=== PATIENT | male | born 1955 | race American Indian/Alaskan Native ===

== ENCOUNTER 2018-12-04 20:39 | Inpatient (IN) | payer BC, OTHER ==
[2018-12-04] MEDS ORDERED: Sodium Chloride 0.9% 2.5 ML Syringe FLUSH PRN (20:55)
[2018-12-04] MEDS ORDERED: Sodium Chloride 0.9% 10 ML Syringe FLUSH PRN (20:55)
[2018-12-04] MEDS ORDERED: Ondansetron 4 MG/2 ML SDV IVPUSH ONE (20:57)
[2018-12-04] MEDS ORDERED: HYDROmorphone 1 MG/ML Syringe IVPUSH ONE ×2 (20:57→23:14)
[2018-12-04] MEDS ORDERED: Sodium Chloride 0.9% 1,000 ML IV ONE (20:57)
--- NOTE | 2018-12-04 20:59 | EDM.PDOC ---
ED HPI GENERAL MEDICAL PROBLEM - General Chief Complaint: Chest Pain Stated Complaint: CHEST PAIN Time Seen by Provider: 12/04/18 20:54 - History of Present Illness INITIAL COMMENTS - FREE TEXT/NARRATIVE: HISTORY AND PHYSICAL: History of present illness: Patient is a 63-year-old white male with history of deep venous thrombosis is currently on Coumadin presents with a concern of intermittent epigastric and right upper quadrant abdominal pain it became worse tonight this more localized in his right upper quadrant on arrival. There is no shortness of breath palpitations or diaphoresis he denies other concern. Review of systems: As per history of present illness and below otherwise all systems reviewed and negative. Past medical history: As per history of present illness and as reviewed below otherwise noncontributory. Surgical history: As per history of present illness and as reviewed below otherwise noncontributory. Social history: No reported history of drug or alcohol abuse. Family history: As per history of present illness and as reviewed below otherwise noncontributory. Physical exam: HEENT: Atraumatic, normocephalic, pupils reactive, negative for conjunctival pallor or scleral icterus, mucous membranes moist, throat clear, neck supple, nontender, trachea midline. Lungs: Clear to auscultation, breath sounds equal bilaterally, chest nontender. Heart: S1S2, regular, negative for clicks, rubs, or JVD. Abdomen: Soft, nondistended, tenderness with guarding in the right upper quadrant deep palpation. Negative for masses or hepatosplenomegaly. Negative for costovertebral tenderness. Pelvis: Stable nontender. Genitourinary: Deferred. Rectal: Deferred. Extremities: Atraumatic, negative for cords or calf pain. Neurovascular unremarkable. Neuro: Awake, alert, oriented. Cranial nerves II through XII unremarkable. Cerebellum unremarkable. Motor and sensory unremarkable throughout. Exam nonfocal. Diagnostics: CBC CMP troponin PT/INR chest x-ray EKG ultrasound right upper quadrant Therapeutics: IV O2 monitor Dilaudid 1 mg IV Zofran 4 mg IV Impression: #1 right upper quadrant abdominal pain #2 history of DVT Definitive disposition and diagnosis as appropriate pending reevaluation and review of above. chest Pain Score (Numeric/FACES): 7 - Related Data Allergies Allergy/AdvReac Type Severity Reaction Status Date / Time propoxyphene [From Darvon] Allergy Nausea Verified 12/04/18 20:49 Home Meds: Home Meds Htn Medication 12/04/18 [History] Warfarin [Coumadin] 12/04/18 [History] Past Medical History Cardiovascular History: Reports: Hypertension Other Cardiovascular History: Arterial procedure in Left leg per PT Other Musculoskeletal History: left leg arterial procedure per PT Social & Family History - Family History Family Medical History: Noncontributory - Tobacco Use Smoking Status *Q: Former Smoker Used Tobacco, but Quit: Yes Month/Year Tobacco Last Used: 03/2016 - Recreational Drug Use Recreational Drug Use: No ED ROS GENERAL - Review of Systems Review Of Systems: ROS reveals no pertinent complaints other than HPI. ED EXAM, GENERAL - Physical Exam Exam: See Below (See dictation) Course - Vital Signs Last Recorded V/S: Last Vital Signs Temp 37.1 C 12/04/18 20:50 Pulse 62 12/05/18 00:41 Resp 16 12/05/18 00:41 BP 126/58 L 12/05/18 00:41 Pulse Ox 92 L 12/05/18 00:41 - Orders/Labs/Meds Orders: Active Orders 24 hr Category Date Time Status Cardiac Monitoring [RC] . DIRECTED Care 12/04/18 20:58 Active Sodium Chloride 0.9% [Saline Flush] Med 12/04/18 20:55 Active 10 ml FLUSH ASDIRECTED PRN Sodium Chloride 0.9% [Saline Flush] Med 12/04/18 20:55 Active 2.5 ml FLUSH ASDIRECTED PRN Saline Lock Insert [OM.PC] Stat Oth 12/04/18 20:55 Ordered Medication Orders Sodium Chloride (Saline Flush) 10 ml FLUSH ASDIRECTED PRN PRN Reason: Keep Vein Open Last Admin: 12/04/18 21:18 Dose: 10 ml Sodium Chloride (Saline Flush) 2.5 ml FLUSH ASDIRECTED PRN PRN Reason: Keep Vein Open Last Admin: 12/04/18 21:18 Dose: 2.5 ml Labs: Laboratory Tests 12/04/18 12/04/18 12/04/18 Range/Units 20:50 20:50 20:50 WBC 8.09 (4.0-11.0) K/uL RBC 4.71 (4.50-5.90) M/uL Hgb 13.8 (13.0-17.0) g/dL Hct 42.1 (38.0-50.0) % MCV 89.4 (80.0-98.0) fL MCH 29.3 (27.0-32.0) pg MCHC 32.8 (31.0-37.0) g/dL RDW Std Deviation 49.6 (28.0-62.0) fl RDW Coeff of Marilee 15 (11.0-15.0) % Plt Count 289 (150-400) K/uL MPV 9.90 (7.40-12.00) fL Neut % (Auto) 77.1 (48.0-80.0) % Lymph % (Auto) 10.1 L (16.0-40.0) % [place] % (Auto) 9.1 (0.0-15.0) % Eos % (Auto) 3.5 (0.0-7.0) % Baso % (Auto) 0.2 (0.0-1.5) % Neut # (Auto) 6.2 H (1.4-5.7) K/uL Lymph # (Auto) 0.8 (0.6-2.4) K/uL [place] # (Auto) 0.7 (0.0-0.8) K/uL Eos # (Auto) 0.3 (0.0-0.7) K/uL Baso # (Auto) 0.0 (0.0-0.1) K/uL Nucleated RBC % 0.0 /100WBC Nucleated RBCs # 0 K/uL INR 6.08 Sodium 141 (136-148) mmol/L Potassium 4.0 (3.5-5.1) mmol/L Chloride 104 (98-107) mmol/L Carbon Dioxide 25.3 (21.0-32.0) mmol/L BUN 26 H (7.0-18.0) mg/dL Creatinine 1.5 H (0.8-1.3) mg/dL Est Cr Clr Drug Dosing 56.04 mL/min Estimated GFR (MDRD) 47.4 ml/min Glucose 221 H (74-106) mg/dL Calcium 8.7 (8.5-10.1) mg/dL Total Bilirubin 0.3 (0.2-1.0) mg/dL AST 14 L (15-37) IU/L ALT 17 (14-63) IU/L Alkaline Phosphatase 76 (46-116) U/L CK-MB (CK-2) 0.7 (0-3.6) ng/mL Troponin I < 0.050 (0.000-0.056) ng/mL Total Protein 7.6 (6.4-8.2) g/dL Albumin 3.3 L (3.4-5.0) g/dL Globulin 4.3 H (2.6-4.0) g/dL Albumin/Globulin Ratio 0.8 L (0.9-1.6) Lipase (73-393) U/L Urine Color Urine Appearance Urine pH (5.0-8.0) Ur Specific [place] (1.001-1.035) Urine Protein (NEGATIVE) mg/dL Urine Glucose (UA) (NEGATIVE) mg/dL Urine Ketones (NEGATIVE) mg/dL Urine Occult Blood (NEGATIVE) Urine Nitrite (NEGATIVE) Urine Bilirubin (NEGATIVE) Urine Urobilinogen (<2.0) EU/dL Ur Leukocyte Esterase (NEGATIVE) Urine RBC (0-2/HPF) Urine WBC (0-5/HPF) Ur Epithelial Cells (NONE-FEW) Urine Bacteria (NEGATIVE) 12/04/18 12/04/18 Range/Units 20:50 20:56 WBC (4.0-11.0) K/uL RBC (4.50-5.90) M/uL Hgb (13.0-17.0) g/dL Hct (38.0-50.0) % MCV (80.0-98.0) fL MCH (27.0-32.0) pg MCHC (31.0-37.0) g/dL RDW Std Deviation (28.0-62.0) fl RDW Coeff of [place] (11.0-15.0) % Plt Count (150-400) K/uL MPV (7.40-12.00) fL Neut % (Auto) (48.0-80.0) % Lymph % (Auto) (16.0-40.0) % [place] % (Auto) (0.0-15.0) % Eos % (Auto) (0.0-7.0) % Baso % (Auto) (0.0-1.5) % Neut # (Auto) (1.4-5.7) K/uL Lymph # (Auto) (0.6-2.4) K/uL [place] # (Auto) (0.0-0.8) K/uL Eos # (Auto) (0.0-0.7) K/uL Baso # (Auto) (0.0-0.1) K/uL Nucleated RBC % /100WBC Nucleated RBCs # K/uL INR Sodium (136-148) mmol/L Potassium (3.5-5.1) mmol/L Chloride (98-107) mmol/L Carbon Dioxide (21.0-32.0) mmol/L BUN (7.0-18.0) mg/dL Creatinine (0.8-1.3) mg/dL Est Cr Clr Drug Dosing mL/min Estimated GFR (MDRD) ml/min Glucose (74-106) mg/dL Calcium (8.5-10.1) mg/dL Total Bilirubin (0.2-1.0) mg/dL AST (15-37) IU/L ALT (14-63) IU/L Alkaline Phosphatase (46-116) U/L CK-MB (CK-2) (0-3.6) ng/mL Troponin I (0.000-0.056) ng/mL Total Protein (6.4-8.2) g/dL Albumin (3.4-5.0) g/dL Globulin (2.6-4.0) g/dL Albumin/Globulin Ratio (0.9-1.6) Lipase 258 (73-393) U/L Urine Color YELLOW Urine Appearance CLEAR Urine pH 5.0 (5.0-8.0) Ur Specific [place] 1.025 (1.001-1.035) Urine Protein TRACE H (NEGATIVE) mg/dL Urine Glucose (UA) NEGATIVE (NEGATIVE) mg/dL Urine Ketones NEGATIVE (NEGATIVE) mg/dL Urine Occult Blood LARGE H (NEGATIVE) Urine Nitrite NEGATIVE (NEGATIVE) Urine Bilirubin NEGATIVE (NEGATIVE) Urine Urobilinogen 0.2 (<2.0) EU/dL Ur Leukocyte Esterase NEGATIVE (NEGATIVE) Urine RBC 15-20 (0-2/HPF) Urine WBC 1-3 (0-5/HPF) Ur Epithelial Cells NOT SEEN (NONE-FEW) Urine Bacteria RARE (NEGATIVE) Meds: Medications Generic Name Dose Route Start Last Admin Trade Name Isaccq PRN Reason Stop Dose Admin Sodium Chloride 10 ml 12/04/18 20:55 12/04/18 21:18 Saline Flush FLUSH 10 ml ASDIRECTED PRN Administration Keep Vein Open Sodium Chloride 2.5 ml 12/04/18 20:55 12/04/18 21:18 Saline Flush FLUSH 2.5 ml ASDIRECTED PRN Administration Keep Vein Open Discontinued Medications Generic Name Dose Route Start Last Admin Trade Name Luann PRN Reason Stop Dose Admin Hydromorphone HCl 1 mg 12/04/18 20:57 12/04/18 21:14 Dilaudid IVPUSH 12/04/18 20:58 1 mg ONETIME ONE Administration Hydromorphone HCl 1 mg 12/04/18 23:14 12/04/18 23:20 Dilaudid IVPUSH 12/04/18 23:15 1 mg ONETIME ONE Administration Sodium Chloride 1,000 mls @ 999 mls/hr 12/04/18 20:57 12/04/18 21:10 Normal Saline IV 12/04/18 21:57 999 mls/hr .Bolus ONE Administration Iopamidol 85 ml 12/04/18 23:37 12/04/18 23:38 Isovue Multipack-370 (76%) IVPUSH 12/04/18 23:38 85 ml ONETIME STA Administration Ondansetron HCl 4 mg 12/04/18 20:57 12/04/18 21:12 Zofran IVPUSH 12/04/18 20:58 4 mg ONETIME ONE Administration Departure - Departure Time of Disposition: 00:43 Disposition: Refer to Observation Condition: Good Clinical Impression: Hematoma, Coumadin toxicity - Discharge Information Referrals: PCP,None [Primary Care Provider] - Forms: ED Department Discharge - My Orders Last 24 Hours: My Active Orders 12/04/18 20:55 Sodium Chloride 0.9% [Saline Flush] 10 ml FLUSH ASDIRECTED PRN Sodium Chloride 0.9% [Saline Flush] 2.5 ml FLUSH ASDIRECTED PRN Saline Lock Insert [OM.PC] Stat 12/04/18 20:58 Cardiac Monitoring [RC] . DIRECTED - Assessment/Plan Last 24 Hours: My Active Orders 12/04/18 20:55 Sodium Chloride 0.9% [Saline Flush] 10 ml FLUSH ASDIRECTED PRN Sodium Chloride 0.9% [Saline Flush] 2.5 ml FLUSH ASDIRECTED PRN Saline Lock Insert [OM.PC] Stat 12/04/18 20:58 Cardiac Monitoring [RC] . DIRECTED
--- NOTE | 2018-12-04 21:34 | CR ---
INDICATION: Chest pain. TECHNIQUE: AP portable chest. FINDINGS: Granulomatous changes on the left with a calcified granuloma in the left lower lobe with calcified left hilar lymph nodes. Both lungs are otherwise clear. Normal heart size and pulmonary vascularity. The included skeleton is unremarkable. IMPRESSION: Granulomatous change on the left. No acute cardiopulmonary process identified. Dictated by Flavio Saleem MD @ Dec 04 2018 9:31PM Signed by Dr. Flavio Saleem @ Dec 04 2018 9:32PM
[2018-12-04 21:50] LABS: BLOOD UREA NITROGEN,BUN 26 mg/dL (7.0-18.0); CARBON DIOXIDE,CO2 25.3 mmol/L (21.0-32.0); CHLORIDE,CL 104 mmol/L (98-107); GLUCOSE RANDOM 221 mg/dL (74-106); SODIUM,NA 141 mmol/L (136-148)
--- NOTE | 2018-12-04 23:09 | US ---
INDICATION: Right upper quadrant abdomen pain TECHNIQUE: Ultrasound abdomen limited. Sonographic images of the right upper quadrant were obtained using arroyo-scale and color Doppler images. COMPARISON: None FINDINGS: Liver: Mildly increased in echogenicity without focal lesion. Gallbladder: No stones or sludge. Normal wall thickness. No pericholecystic fluid. Common bile duct: 3 mm. Pancreas: Obscured by bowel gas. Right kidney: Normal in size. Normal echotexture and cortex. No masses, stones, or hydronephrosis. Irregular hypoechoic avascular area within the epigastric region measuring 7.2 x 4.2 x 6.3 centimeters. IMPRESSION: 1. No evidence of cholelithiasis or cholecystitis. 2. Hypoechoic avascular area within the epigastric region measuring up to 7.2 centimeters. This is indeterminate and could represent a thickened area of bowel, thickened stomach or separate lesion. CT scan recommended for further characterization. 3. Mild fatty infiltration of the liver. Dictated by Maximo Wheeler MD @ Dec 04 2018 11:04PM Signed by Dr. Maximo Wheeler @ Dec 04 2018 11:07PM
[2018-12-04] MEDS ORDERED: Iopamidol 755 MG/ML 500 ML Multipack Bottle IVPUSH STA (23:37)
--- NOTE | 2018-12-05 00:20 | CT ---
INDICATION: Abdominal pain, abnormal abdominal ultrasound. TECHNIQUE: CT abdomen and pelvis acquired with 85 cc Isovue 370 IV contrast. COMPARISON: Abdominal ultrasound from earlier today FINDINGS: Lower chest: Calcified granuloma left lower lobe. Calcified left hilar lymph nodes. Liver: Hepatic steatosis. Spleen: Unremarkable. Pancreas: Unremarkable. Gallbladder and bile ducts: Unremarkable. Adrenal glands: Unremarkable. Kidneys: Unremarkable. GI tract: Colonic diverticulosis. Vascular structures: Mild atherosclerotic disease. Patent left common iliac artery stent. Lymph nodes: Unremarkable. Miscellaneous: In the midline extraperitoneal fat at the level of the liver, there is 4.4 by 4.0 x 7.7 cm lobular soft tissue mass that demonstrates a fluid-fluid level. There is mild soft tissue stranding in this region. No active bleeding or pseudoaneurysm. No intraperitoneal abnormality. Small fat containing umbilical hernia. Pelvic Organs: Enlarged prostate gland. Bones: Unremarkable for age. IMPRESSION: Lobular mass in the midline extraperitoneal fat at the level of the liver likely represents a hematoma. No active bleeding identified. Recommend follow-up CT in 3-4 weeks to ensure complete resolution of findings. Colonic diverticulosis. Hepatic steatosis. Patent left common iliac artery stent. Enlarged prostate gland. Please note that all CT scans at this facility use dose modulation, iterative reconstruction, and/or weight-based dosing when appropriate to reduce radiation dose to as low as reasonably achievable. Dictated by Alison Stout MD @ Dec 05 2018 12:05AM Signed by Dr. Alison Stout @ Dec 05 2018 12:18AM
[2018-12-05] MEDS: HYDROmorphone 1 MG/ML Syringe IVPUSH PRN ×3 (02:13→11:45)
[2018-12-05 08:50] LABS: BLOOD UREA NITROGEN,BUN 20 mg/dL (7.0-18.0); CARBON DIOXIDE,CO2 26.5 mmol/L (21.0-32.0); CHLORIDE,CL 107 mmol/L (98-107); GLUCOSE RANDOM 111 mg/dL (74-106); POTASSIUM,K 4.5 mmol/L (3.5-5.1); SODIUM,NA 143 mmol/L (136-148)
--- NOTE | 2018-12-05 09:05 | PCM.HP.2 ---
H&P History of Present Illness - General Date of Service: 12/05/18 Admit Problem/Dx: Admission Diagnosis/Problem Admission Diagnosis/Problem Hematoma Source of Information: Patient History Limitations: Reports: No Limitations - History of Present Illness Initial Comments - Free Text/Narative: This 63 year old male with pmh of PAD with iliac artery stenting and L femoral bypass in 2007, HTN, dyslipidemia, and history of DVT with chronic anticoagulation on Coumadin presented to the ED with complaints of epigastric and RUQ abdominal pain. He reports this started around and it slowly progressed to the point last evening it was unbearable. He denies obvious injury or trauma. No recent physical activity or carrying objects. As he was recalling this, he remembered on Wednesday he had a rental truck and had to lean over the bed of the truck. He leaned over with bottom of ribcage pressured firmaly against the truck and he remembers it hurting. This is the only thing he can recall injurying his abdomen. He denies fevers, chills, sinus congestion or cough. No chest pain or lower abdominal pain. No shortness of breath. No diarrhea or constipation. No black or bloody stools. No urinary troubles and no blood noted in his urine. He reports diet hasn't changed. He recently added B complex vitamin to his medication regimen. He is a former smoker, occasional social alcohol use and no recreational drug use. He has no history of AR or CVA. He reports he takes 10 mg Coumadin daily, and that is how its been for years now. In in the ED, CBC stable. Hgb 13.6. BUN 25, Cr 1.5. INR 6.08. CXR negative. US of abdomen showed questionable soft tissue mass, recommended CT. CT of abdomen revealed lobular mass in the midline extraperitoneal fat at the level of the liver, likely hematoma, no active bleeding identified, recommended F/U 3-[address] Patent left iliac artery stent. He was given IVFs in ED with pain medications and admitted observation for pain secondary to abdominal soft tissue hematoma. PCP, Dr Dorado Right Upper Abdominal Pain Score (Numeric/FACES): 7 chest Pain Score (Numeric/FACES): 7 - Related Data Allergies/Adverse Reactions: Allergies Allergy/AdvReac Type Severity Reaction Status Date / Time propoxyphene [From Darvon] Allergy Nausea Verified 12/05/18 01:39 Home Medications: Home Meds Warfarin [Coumadin] 10 mg PO ASDIRECTED 12/04/18 [History] Doxazosin [Doxazosin Mesylate] 8 mg PO BEDTIME 12/05/18 [History] Finasteride 5 mg PO DAILY 12/05/18 [History] Lansoprazole [Prevacid] 30 mg PO DAILY 12/05/18 [History] Rosuvastatin Calcium 5 mg PO DAILY 12/05/18 [History] amLODIPine Besylate [Amlodipine Besylate] 10 mg PO DAILY 12/05/18 [History] Past Medical History Cardiovascular History: Reports: Blood Clots/VTE/DVT, High Cholesterol, Hypertension, PVD (femoral bypass in 2007, with L common iliac arterty stenting. ), Stents Respiratory History: Reports: None. Denies: Asthma, COPD Gastrointestinal History: Reports: None. Denies: GERD, GI Bleed Genitourinary History: Reports: None. Denies: Chronic Renal Insuffiency Other Musculoskeletal History: left leg arterial procedure per PT Neurological History: Reports: None. Denies: CVA, TIA Psychiatric History: Reports: None Endocrine/Metabolic History: Reports: Obesity/BMI 30+. Denies: Diabetes, Type II - Infectious Disease History Infectious Disease History: Reports: Chicken Pox, Measles, Mumps - Past Surgical History Cardiovascular Surgical History: Reports: Vascular Surgery (femoral bypass with left common iliac arterty stenting to) Social & Family History - Family History Family Medical History: Noncontributory - Tobacco Use Smoking Status *Q: Never Smoker Used Tobacco, but Quit: Yes Month/Year Tobacco Last Used: 03/2016 - Caffeine Use Caffeine Use: Reports: Coffee, Soda - Alcohol Use Alcohol Use History: No Alcohol Use Frequency: Socially - Recreational Drug Use Recreational Drug Use: No - Living Situation & Occupation Living situation: Reports: Occupation: Employed H&P Review of Systems - Review of Systems: Review Of Systems: See Below General: Reports: No Symptoms. Denies: Fever, Chills, Malaise HEENT: Reports: No Symptoms. Denies: Headaches, Sinus Congestion, Sore Throat Pulmonary: Reports: No Symptoms. Denies: Shortness of Breath Cardiovascular: Reports: No Symptoms. Denies: Chest Pain Gastrointestinal: Reports: Abdominal Pain (Epigastric and RUQ). Denies: Black Stool, Bloody Stool, Constipation, Diarrhea, Distension, Nausea, Vomiting Genitourinary: Reports: No Symptoms. Denies: Dysuria, Frequency, Burning, Hematuria Musculoskeletal: Reports: No Symptoms. Denies: Neck Pain Skin: Reports: No Symptoms Psychiatric: Reports: No Symptoms Neurological: Reports: No Symptoms. Denies: Headache, Numbness, Paresthesia, Trouble Speaking Hematologic/Lymphatic: Reports: Easy Bruising Immunologic: Reports: No Symptoms Exam - Exam Exam: See Below - Vital Signs Vital Signs: Last Vital Signs Temp 98 F 12/05/18 07:41 Pulse 70 12/05/18 07:41 Resp 16 12/05/18 07:41 BP 122/63 12/05/18 07:41 Pulse Ox 93 L 12/05/18 07:41 Weight: 102.058 kg - Exam General: Alert, Oriented, Cooperative HEENT: Conjunctiva Clear, Mucosa Moist & [place], Posterior Pharynx Clear Lungs: Clear to Auscultation, Normal Respiratory Effort Cardiovascular: Regular Rate, Regular Rhythm, Normal S1, Normal S2. No: Systolic Murmur GI/Abdominal Exam: Normal Bowel Sounds, Soft, Tender (very tender with small palpation to Epigastric region and RUQ, but more towards epigastric.) Back Exam: Normal Inspection, Full Range of Motion. No: CVA Tenderness (L), CVA Tenderness (R) Extremities: Normal Inspection, Normal Range of Motion, Non-Tender, No Pedal Edema Skin: Warm, Dry, Ecchymosis (small scant bruise noted to epigastric region) Neuro Extensive - Mental Status: Alert, Oriented x3 Neuro Extensive - Motor, Sensory, Reflexes: CN II-XII Intact Psychiatric: Alert, Normal Affect, Normal Mood - Patient Data Lab Results Last 24 hrs: Laboratory Results - last 24 hr 12/04/18 12/04/18 12/04/18 Range/Units 20:50 20:50 20:50 WBC 8.09 (4.0-11.0) K/uL RBC 4.71 (4.50-5.90) M/uL Hgb 13.8 (13.0-17.0) g/dL Hct 42.1 (38.0-50.0) % MCV 89.4 (80.0-98.0) fL MCH 29.3 (27.0-32.0) pg MCHC 32.8 (31.0-37.0) g/dL RDW Std Deviation 49.6 (28.0-62.0) fl RDW Coeff of [place] 15 (11.0-15.0) % Plt Count 289 (150-400) K/uL MPV 9.90 (7.40-12.00) fL Neut % (Auto) 77.1 (48.0-80.0) % Lymph % (Auto) 10.1 L (16.0-40.0) % [place] % (Auto) 9.1 (0.0-15.0) % Eos % (Auto) 3.5 (0.0-7.0) % Baso % (Auto) 0.2 (0.0-1.5) % Neut # (Auto) 6.2 H (1.4-5.7) K/uL Lymph # (Auto) 0.8 (0.6-2.4) K/uL [place] # (Auto) 0.7 (0.0-0.8) K/uL Eos # (Auto) 0.3 (0.0-0.7) K/uL Baso # (Auto) 0.0 (0.0-0.1) K/uL Nucleated RBC % 0.0 /100WBC Nucleated RBCs # 0 K/uL INR 6.08 Sodium 141 (136-148) mmol/L Potassium 4.0 (3.5-5.1) mmol/L Chloride 104 (98-107) mmol/L Carbon Dioxide 25.3 (21.0-32.0) mmol/L BUN 26 H (7.0-18.0) mg/dL Creatinine 1.5 H (0.8-1.3) mg/dL Est Cr Clr Drug Dosing 56.04 mL/min Estimated GFR (MDRD) 47.4 ml/min Glucose 221 H (74-106) mg/dL Calcium 8.7 (8.5-10.1) mg/dL Total Bilirubin 0.3 (0.2-1.0) mg/dL AST 14 L (15-37) IU/L ALT 17 (14-63) IU/L Alkaline Phosphatase 76 (46-116) U/L CK-MB (CK-2) 0.7 (0-3.6) ng/mL Troponin I < 0.050 (0.000-0.056) ng/mL Total Protein 7.6 (6.4-8.2) g/dL Albumin 3.3 L (3.4-5.0) g/dL Globulin 4.3 H (2.6-4.0) g/dL Albumin/Globulin Ratio 0.8 L (0.9-1.6) Lipase (73-393) U/L Urine Color Urine Appearance Urine pH (5.0-8.0) Ur Specific [place] (1.001-1.035) Urine Protein (NEGATIVE) mg/dL Urine Glucose (UA) (NEGATIVE) mg/dL Urine Ketones (NEGATIVE) mg/dL Urine Occult Blood (NEGATIVE) Urine Nitrite (NEGATIVE) Urine Bilirubin (NEGATIVE) Urine Urobilinogen (<2.0) EU/dL Ur Leukocyte Esterase (NEGATIVE) Urine RBC (0-2/HPF) Urine WBC (0-5/HPF) Ur Epithelial Cells (NONE-FEW) Urine Bacteria (NEGATIVE) 12/04/18 12/04/18 12/05/18 Range/Units 20:50 20:56 06:10 WBC 7.06 (4.0-11.0) K/uL RBC 4.40 L (4.50-5.90) M/uL Hgb 12.6 L (13.0-17.0) g/dL Hct 39.7 (38.0-50.0) % MCV 90.2 (80.0-98.0) fL MCH 28.6 (27.0-32.0) pg MCHC 31.7 (31.0-37.0) g/dL RDW Std Deviation 50.2 (28.0-62.0) fl RDW Coeff of [place] 15 (11.0-15.0) % Plt Count 253 (150-400) K/uL MPV 9.30 (7.40-12.00) fL Neut % (Auto) 75.2 (48.0-80.0) % Lymph % (Auto) 11.3 L (16.0-40.0) % [place] % (Auto) 10.3 (0.0-15.0) % Eos % (Auto) 2.8 (0.0-7.0) % Baso % (Auto) 0.4 (0.0-1.5) % Neut # (Auto) 5.3 (1.4-5.7) K/uL Lymph # (Auto) 0.8 (0.6-2.4) K/uL [place] # (Auto) 0.7 (0.0-0.8) K/uL Eos # (Auto) 0.2 (0.0-0.7) K/uL Baso # (Auto) 0.0 (0.0-0.1) K/uL Nucleated RBC % 0.0 /100WBC Nucleated RBCs # 0 K/uL INR Sodium (136-148) mmol/L Potassium (3.5-5.1) mmol/L Chloride (98-107) mmol/L Carbon Dioxide (21.0-32.0) mmol/L BUN (7.0-18.0) mg/dL Creatinine (0.8-1.3) mg/dL Est Cr Clr Drug Dosing mL/min Estimated GFR (MDRD) ml/min Glucose (74-106) mg/dL Calcium (8.5-10.1) mg/dL Total Bilirubin (0.2-1.0) mg/dL AST (15-37) IU/L ALT (14-63) IU/L Alkaline Phosphatase (46-116) U/L CK-MB (CK-2) (0-3.6) ng/mL Troponin I (0.000-0.056) ng/mL Total Protein (6.4-8.2) g/dL Albumin (3.4-5.0) g/dL Globulin (2.6-4.0) g/dL Albumin/Globulin Ratio (0.9-1.6) Lipase 258 (73-393) U/L Urine Color YELLOW Urine Appearance CLEAR Urine pH 5.0 (5.0-8.0) Ur Specific [place] 1.025 (1.001-1.035) Urine Protein TRACE H (NEGATIVE) mg/dL Urine Glucose (UA) NEGATIVE (NEGATIVE) mg/dL Urine Ketones NEGATIVE (NEGATIVE) mg/dL Urine Occult Blood LARGE H (NEGATIVE) Urine Nitrite NEGATIVE (NEGATIVE) Urine Bilirubin NEGATIVE (NEGATIVE) Urine Urobilinogen 0.2 (<2.0) EU/dL Ur Leukocyte Esterase NEGATIVE (NEGATIVE) Urine RBC 15-20 (0-2/HPF) Urine WBC 1-3 (0-5/HPF) Ur Epithelial Cells NOT SEEN (NONE-FEW) Urine Bacteria RARE (NEGATIVE) 12/05/18 12/05/18 Range/Units 06:10 06:10 WBC (4.0-11.0) K/uL RBC (4.50-5.90) M/uL Hgb (13.0-17.0) g/dL Hct (38.0-50.0) % MCV (80.0-98.0) fL MCH (27.0-32.0) pg MCHC (31.0-37.0) g/dL RDW Std Deviation (28.0-62.0) fl RDW Coeff of [place] (11.0-15.0) % Plt Count (150-400) K/uL MPV (7.40-12.00) fL Neut % (Auto) (48.0-80.0) % Lymph % (Auto) (16.0-40.0) % [place] % (Auto) (0.0-15.0) % Eos % (Auto) (0.0-7.0) % Baso % (Auto) (0.0-1.5) % Neut # (Auto) (1.4-5.7) K/uL Lymph # (Auto) (0.6-2.4) K/uL [place] # (Auto) (0.0-0.8) K/uL Eos # (Auto) (0.0-0.7) K/uL Baso # (Auto) (0.0-0.1) K/uL Nucleated RBC % /100WBC Nucleated RBCs # K/uL INR 6.24 Sodium 143 (136-148) mmol/L Potassium 4.5 (3.5-5.1) mmol/L Chloride 107 (98-107) mmol/L Carbon Dioxide 26.5 (21.0-32.0) mmol/L BUN 20 H (7.0-18.0) mg/dL Creatinine 1.2 (0.8-1.3) mg/dL Est Cr Clr Drug Dosing 70.06 mL/min Estimated GFR (MDRD) > 60.0 ml/min Glucose 111 H (74-106) mg/dL Calcium 7.9 L (8.5-10.1) mg/dL Total Bilirubin (0.2-1.0) mg/dL AST (15-37) IU/L ALT (14-63) IU/L Alkaline Phosphatase (46-116) U/L CK-MB (CK-2) (0-3.6) ng/mL Troponin I (0.000-0.056) ng/mL Total Protein (6.4-8.2) g/dL Albumin (3.4-5.0) g/dL Globulin (2.6-4.0) g/dL Albumin/Globulin Ratio (0.9-1.6) Lipase (73-393) U/L Urine Color Urine Appearance Urine pH (5.0-8.0) Ur Specific [place] (1.001-1.035) Urine Protein (NEGATIVE) mg/dL Urine Glucose (UA) (NEGATIVE) mg/dL Urine Ketones (NEGATIVE) mg/dL Urine Occult Blood (NEGATIVE) Urine Nitrite (NEGATIVE) Urine Bilirubin (NEGATIVE) Urine Urobilinogen (<2.0) EU/dL Ur Leukocyte Esterase (NEGATIVE) Urine RBC (0-2/HPF) Urine WBC (0-5/HPF) Ur Epithelial Cells (NONE-FEW) Urine Bacteria (NEGATIVE) Result Diagrams: 12/05/18 06:10 12/05/18 06:10 EKG INTERPRETATION EKG Date: 12/05/18 Rhythm: NSR Rate (Beats/Min): 83 [place]: LAD-Left [place] Deviation P-Wave: Present QRS: Normal ST-T: Normal QT: Normal *Q Meaningful Use (ADM) - VTE *Q VTE Pharmacological Contraindications *Q: Risk of Bleeding - Problem List (1) Hematoma SNOMED Code(s): 684281532 ICD Code: T14.8XXA - OTHER INJURY OF UNSPECIFIED BODY REGION, INITIAL ENCOUNTER Status: Acute Current Visit: Yes (2) Supratherapeutic INR SNOMED Code(s): 851425312 ICD Code: R79.1 - ABNORMAL COAGULATION PROFILE Status: Acute Current Visit: Yes (3) HTN (hypertension) SNOMED Code(s): 18995703 ICD Code: I10 - ESSENTIAL (PRIMARY) HYPERTENSION Status: Chronic Current Visit: Yes Qualifiers: Hypertension type: essential hypertension Qualified Code(s): I10 - Essential (primary) hypertension (4) Dyslipidemia SNOMED Code(s): 233593159 ICD Code: E78.5 - HYPERLIPIDEMIA, UNSPECIFIED Status: Chronic Current Visit: Yes (5) Chronic anticoagulation SNOMED Code(s): 984860196 ICD Code: Z79.01 - BRAILLE TYPIST (CURRENT) USE OF ANTICOAGULANTS Status: Chronic Current Visit: Yes (6) PAD (peripheral artery disease) SNOMED Code(s): 636204908, 439247082 ICD Code: I73.9 - PERIPHERAL VASCULAR DISEASE, UNSPECIFIED Status: Chronic Current Visit: Yes Problem List Initiated/Reviewed/Updated: Yes Orders Last 24hrs: Active Orders 24 hr Category Date Time Status Patient Status [ADT] Stat ADT 12/05/18 00:55 Active Cardiac Monitoring [RC] . DIRECTED Care 12/04/18 20:58 Active Regular Diet [DIET] Diet 12/05/18 Breakfast Active HYDROmorphone [Dilaudid] Med 12/05/18 01:50 Active 1 mg IVPUSH Q3H PRN Sodium Chloride 0.9% [Saline Flush] Med 12/04/18 20:55 Active 10 ml FLUSH ASDIRECTED PRN Sodium Chloride 0.9% [Saline Flush] Med 12/04/18 20:55 Active 2.5 ml FLUSH ASDIRECTED PRN Saline Lock Insert [OM.PC] Stat Oth 12/04/18 20:55 Ordered Medication Orders Hydromorphone HCl (Dilaudid) 1 mg IVPUSH Q3H PRN PRN Reason: Pain Last Admin: 12/05/18 05:08 Dose: 1 mg Admin: 12/05/18 02:13 Dose: 1 mg Sodium Chloride (Saline Flush) 10 ml FLUSH ASDIRECTED PRN PRN Reason: Keep Vein Open Last Admin: 12/04/18 21:18 Dose: 10 ml Sodium Chloride (Saline Flush) 2.5 ml FLUSH ASDIRECTED PRN PRN Reason: Keep Vein Open Last Admin: 12/04/18 21:18 Dose: 2.5 ml Assessment/Plan Comment:: This 63 year old male admitted with abdominal soft tissue hematoma and supratherapeutic INR 1. Abdominal soft tissue hematoma: Pain improved with Dilaudid, but reports it doesn't last long. Will start [place] now and monitor. Hold Coumadin today, INR 6.24. No active bleeding noted, will hold off on Vitamin K. Will obtain records from Dr Ortiz [place], [place]. She is his Vascular surgeon, recommended life long anticoagulation for him after femoral bypass in 2008. 2. HTN: Stable, continue Amlodipine VTE prophylaxis: Hold Coumadin due to supratherapeutic INR. - Mortality Measure Prognosis:: Good
[2018-12-05] MEDS ORDERED: Ondansetron 4 MG/2 ML SDV IVPUSH PRN (09:17)
[2018-12-05] MEDS: Acetaminophen/HYDROcodone 325-10 MG Tab PO PRN ×3 (09:50→19:59)
[2018-12-05] MEDS: Docusate Sodium 100 MG Cap PO SCH (09:51)
[2018-12-05] MEDS: amLODIPine 5 MG Tab PO SCH (11:40)
[2018-12-05] MEDS: Doxazosin 4 MG Tab PO SCH (20:01)
[2018-12-06] MEDS: HYDROmorphone 1 MG/ML Syringe IVPUSH PRN (03:03)
[2018-12-06] MEDS: Acetaminophen/HYDROcodone 325-10 MG Tab PO PRN ×4 (04:15→21:00)
[2018-12-06 06:18] LABS: CARBON DIOXIDE,CO2 28.1 mmol/L (21.0-32.0); POTASSIUM,K 4.2 mmol/L (3.5-5.1)
[2018-12-06] MEDS: Finasteride 5 MG Tab PO SCH (08:13)
[2018-12-06] MEDS: Docusate Sodium 100 MG Cap PO SCH (08:13)
[2018-12-06] MEDS: amLODIPine 5 MG Tab PO SCH (08:13)
[2018-12-06] MEDS: Rosuvastatin 10 MG Tab PO SCH (08:13)
--- NOTE | 2018-12-06 09:21 | PCM.PN ---
- General Info Date of Service: 12/06/18 Admission Dx/Problem (Free Text): Admission Diagnosis/Problem Admission Diagnosis/Problem Hematoma Subjective Update: Feeling dizzy this morning, intermittently. No chest pain or SOB. Feeling congested. No blurred vision or headache. Continues to have abdominal pain, but it is improving. Educated on use of IS to help with atelectasis, he reports not taking deep breaths due to pain Functional Status: Reports: Pain Controlled, Tolerating Diet, Ambulating, Urinating - Review of Systems General: Reports: Fatigue, Malaise HEENT: Reports: No Symptoms. Denies: Headaches, Sore Throat, Visual Changes Cardiovascular: Reports: No Symptoms. Denies: Chest Pain Gastrointestinal: Reports: Abdominal Pain (epigastric RUQ pain) Genitourinary: Reports: No Symptoms. Denies: Dysuria, Frequency, Burning Musculoskeletal: Reports: No Symptoms Skin: Reports: No Symptoms Neurological: Reports: Dizziness. Denies: Headache, Paresthesia, Trouble Speaking, Difficulty Walking, Weakness, Change in Speech Psychiatric: Reports: No Symptoms - Patient Data Vitals - Most Recent: Last Vital Signs Temp 99.8 F 12/06/18 07:50 Pulse 79 12/06/18 07:50 Resp 20 12/06/18 07:50 BP 151/65 H 12/06/18 08:13 Pulse Ox 92 L 12/06/18 07:50 Weight - Most Recent: 102.058 kg I&O - Last 24 Hours: Intake & Output 12/05/18 12/06/18 12/06/18 22:59 06:59 14:59 Intake Total 950 840 Output Total 800 600 Balance 150 240 Lab Results Last 24 Hours: Laboratory Results - last 24 hr 12/06/18 12/06/18 12/06/18 Range/Units 05:31 05:31 05:31 WBC 6.47 (4.0-11.0) K/uL RBC 4.27 L (4.50-5.90) M/uL Hgb 12.4 L (13.0-17.0) g/dL Hct 39.1 (38.0-50.0) % MCV 91.6 (80.0-98.0) fL MCH 29.0 (27.0-32.0) pg MCHC 31.7 (31.0-37.0) g/dL RDW Std Deviation 51.0 (28.0-62.0) fl RDW Coeff of [place] 15 (11.0-15.0) % Plt Count 276 (150-400) K/uL MPV 9.50 (7.40-12.00) fL Neut % (Auto) 75.9 (48.0-80.0) % Lymph % (Auto) 10.8 L (16.0-40.0) % [place] % (Auto) 10.0 (0.0-15.0) % Eos % (Auto) 3.1 (0.0-7.0) % Baso % (Auto) 0.2 (0.0-1.5) % Neut # (Auto) 4.9 (1.4-5.7) K/uL Lymph # (Auto) 0.7 (0.6-2.4) K/uL [place] # (Auto) 0.7 (0.0-0.8) K/uL Eos # (Auto) 0.2 (0.0-0.7) K/uL Baso # (Auto) 0.0 (0.0-0.1) K/uL Nucleated RBC % 0.0 /100WBC Nucleated RBCs # 0 K/uL INR 4.16 Sodium 141 (136-148) mmol/L Potassium 4.2 (3.5-5.1) mmol/L Chloride 105 (98-107) mmol/L Carbon Dioxide 28.1 (21.0-32.0) mmol/L BUN 18 (7.0-18.0) mg/dL Creatinine 1.4 H (0.8-1.3) mg/dL Est Cr Clr Drug Dosing 60.05 mL/min Estimated GFR (MDRD) 51.4 ml/min Glucose 122 H (74-106) mg/dL Calcium 8.1 L (8.5-10.1) mg/dL Med Orders - Current: Current Medications Hydrocodone Bitart/Acetaminophen ([place] 325-10 Mg) 1 - 2 tab PO Q4H PRN PRN Reason: Pain Last Admin: 12/06/18 08:19 Dose: 2 tab Amlodipine Besylate (Norvasc) 10 mg PO DAILY AFTAB Last Admin: 12/06/18 08:13 Dose: 10 mg Docusate Sodium (Colace) 100 mg PO DAILY AFTAB Last Admin: 12/06/18 08:13 Dose: 100 mg Doxazosin Mesylate (Cardura) 8 mg PO BEDTIME [facility] Last Admin: 12/05/18 20:01 Dose: 8 mg Finasteride (Proscar) 5 mg PO DAILY [facility] Last Admin: 12/06/18 08:13 Dose: 5 mg Ondansetron HCl (Zofran) 4 mg IVPUSH Q4H PRN PRN Reason: Nausea Last Admin: 12/05/18 17:16 Dose: 4 mg Lansoprazole [ (Prevacid] 30 Mg) 30 each PO DAILY [facility] Rosuvastatin Calcium (Crestor) 5 mg PO DAILY [facility] Last Admin: 12/06/18 08:13 Dose: 5 mg Sodium Chloride (Saline Flush) 10 ml FLUSH ASDIRECTED PRN PRN Reason: Keep Vein Open Last Admin: 12/04/18 21:18 Dose: 10 ml Sodium Chloride (Saline Flush) 2.5 ml FLUSH ASDIRECTED PRN PRN Reason: Keep Vein Open Last Admin: 12/04/18 21:18 Dose: 2.5 ml Warfarin Sodium (Coumadin Ask) 1 each PO DAILY@1400 [facility] Last Admin: 12/05/18 14:21 Dose: Not Given Discontinued Medications Hydromorphone HCl (Dilaudid) 1 mg IVPUSH ONETIME ONE Stop: 12/04/18 20:58 Last Admin: 12/04/18 21:14 Dose: 1 mg Hydromorphone HCl (Dilaudid) 1 mg IVPUSH ONETIME ONE Stop: 12/04/18 23:15 Last Admin: 12/04/18 23:20 Dose: 1 mg Hydromorphone HCl (Dilaudid) 1 mg IVPUSH Q3H PRN PRN Reason: Pain Last Admin: 12/06/18 03:03 Dose: 1 mg Sodium Chloride (Normal Saline) 1,000 mls @ 999 mls/hr IV .Bolus ONE Stop: 12/04/18 21:57 Last Admin: 12/04/18 21:10 Dose: 999 mls/hr Iopamidol (Isovue Multipack-370 (76%)) 85 ml IVPUSH ONETIME STA Stop: 12/04/18 23:38 Last Admin: 12/04/18 23:38 Dose: 85 ml Ondansetron HCl (Zofran) 4 mg IVPUSH ONETIME ONE Stop: 12/04/18 20:58 Last Admin: 12/04/18 21:12 Dose: 4 mg - Exam General: Alert, Oriented, Cooperative, No Acute Distress Lungs: Clear to Auscultation, Normal Respiratory Effort Cardiovascular: Regular Rate, Regular Rhythm GI/Abdominal Exam: Normal Bowel Sounds, Soft, Tender (RUQ and epigastric) Back Exam: Normal Inspection, Full Range of Motion Extremities: Normal Inspection, Normal Range of Motion, Non-Tender, No Pedal Edema Wound/Incisions: Healing Well Neurological: No New Focal Deficit Psy/Mental Status: Alert, Normal Affect, Normal Mood - Problem List & Annotations (1) Hematoma SNOMED Code(s): 300671653 Code(s): T14.8XXA - OTHER INJURY OF UNSPECIFIED BODY REGION, INITIAL ENCOUNTER Status: Acute Current Visit: Yes (2) Supratherapeutic INR SNOMED Code(s): 125160592 Code(s): R79.1 - ABNORMAL COAGULATION PROFILE Status: Acute Current Visit : Yes (3) HTN (hypertension) SNOMED Code(s): 75039798 Code(s): I10 - ESSENTIAL (PRIMARY) HYPERTENSION Status: Chronic Current Visit: Yes Qualifiers: Hypertension type: essential hypertension Qualified Code(s): I10 - Essential (primary) hypertension (4) Dyslipidemia SNOMED Code(s): 659895444 Code(s): E78.5 - HYPERLIPIDEMIA, UNSPECIFIED Status: Chronic Current Visit: Yes (5) Chronic anticoagulation SNOMED Code(s): 809133041 Code(s): Z79.01 - ASSISTED (CURRENT) USE OF ANTICOAGULANTS Status: Chronic Current Visit: Yes (6) PAD (peripheral artery disease) SNOMED Code(s): 573139807 Code(s): I73.9 - PERIPHERAL VASCULAR DISEASE, UNSPECIFIED Status: Chronic Current Visit: Yes (7) Sinusitis SNOMED Code(s): 42138459 Code(s): J32.9 - CHRONIC SINUSITIS, UNSPECIFIED Status: Acute Current Visit: Yes Qualifiers: Sinusitis location: maxillary Chronicity: subacute Qualified Code(s): J01.00 - Acute maxillary sinusitis, unspecified - Problem List Review Problem List Initiated/Reviewed/Updated: Yes - My Orders Last 24 Hours: My Active Orders 12/05/18 09:15 Acetaminophen/HYDROcodone [[place] 325-10 MG] 1 - 2 tab PO Q4H PRN Docusate Sodium [Colace] 100 mg PO DAILY 12/05/18 09:17 Ambulate [RC] ASDIRECTED Intake and Output [RC] Q12H May Shower [RC] ASDIRECTED Oxygen Therapy [RC] PRN Up ad Evy [RC] ASDIRECTED VTE/DVT Education [RC] PER UNIT ROUTINE Vital Signs [RC] Q4H Ondansetron [Zofran] 4 mg IVPUSH Q4H PRN Resuscitation Status Routine 12/05/18 10:55 Patient Status [ADT] Stat 12/05/18 11:00 amLODIPine [Norvasc] 10 mg PO DAILY 12/05/18 14:00 Warfarin Dosing [Coumadin Ask] 1 each PO DAILY@1400 12/05/18 21:00 Doxazosin [Cardura] 8 mg PO BEDTIME 12/06/18 08:48 IS (RT) [RT Incentive Spirometry] [RC] Q1HWA Head wo Cont [CT] Urgent 12/06/18 09:00 Finasteride [Proscar] 5 mg PO DAILY Patient's Own Medication [Ptom] 30 each PO DAILY Rosuvastatin [Crestor] 5 mg PO DAILY - Plan Plan:: This 63 year old male admitted with abdominal soft tissue hematoma and supratherapeutic INR 1. Abdominal soft tissue hematoma: Pain improving slowly. Discontinue Dilaudid. Continue [place] PRN. Hold Coumadin today, INR 4. Reviewed records from Dr Ortiz, [place], [place]. 2. Dizziness: Intermittent, obtained Head CT to rule out hemorrhage. No hemorrhage noted No mass. Sinusitis noted. Will start Flonase and Loratadine. Monitor. 3. HTN: Stable, continue Amlodipine VTE prophylaxis: Hold Coumadin due to supratherapeutic INR. Dispo: 1-2 days pending INR
--- NOTE | 2018-12-06 09:31 | CT ---
INDICATION: Dizziness. Subtherapeutic INR. TECHNIQUE: Noncontrast head CT. FINDINGS: No intracranial hemorrhage, hydrocephalus, mass effect, or shift of midline structures. No evidence for ischemic change or infarction. The calvarium and skull base are negative for fractures. Largely opacified right maxillary sinus and partial opacification of left maxillary sinus as well as a few anterior and middle ethmoid sinuses. IMPRESSION: No acute intracranial process identified. Please note that all CT scans at this facility use dose modulation, iterative reconstruction, and/or weight-based dosing when appropriate to reduce radiation dose to as low as reasonably achievable. Dictated by Flavio Saleem MD @ Dec 06 2018 9:29AM Signed by Dr. Flavio Saleem @ Dec 06 2018 9:30AM
[2018-12-06] MEDS: Lansoprazole [Prevacid] 30 MG PO SCH (09:41)
[2018-12-06] MEDS: Loratadine 10 MG Tab PO SCH (10:49)
[2018-12-06] MEDS: Fluticasone Propionate Nasal Spray 16 GM Bottle NASBOTH SCH (10:49)
[2018-12-06] MEDS: Doxazosin 4 MG Tab PO SCH (20:59)
[2018-12-06] MEDS ORDERED: Benzocaine/Cetylpyridinium/Menthol Lozenge MUCMEM PRN (23:00)
[2018-12-07 06:32] LABS: CARBON DIOXIDE,CO2 30.3 mmol/L (21.0-32.0); POTASSIUM,K 4.4 mmol/L (3.5-5.1)
[2018-12-07] MEDS ORDERED: Warfarin 10 MG Tab PO ONE (07:58)
[2018-12-07] MEDS ORDERED: Magnesium Citrate Solution 296 ML Bottle PO ONE (08:48)
[2018-12-07] MEDS: Loratadine 10 MG Tab PO SCH (08:49)
[2018-12-07] MEDS: amLODIPine 5 MG Tab PO SCH (08:49)
[2018-12-07] MEDS: Docusate Sodium 100 MG Cap PO SCH (08:49)
[2018-12-07] MEDS: Finasteride 5 MG Tab PO SCH (08:51)
[2018-12-07] MEDS: Rosuvastatin 10 MG Tab PO SCH (08:52)
[2018-12-07] MEDS: Fluticasone Propionate Nasal Spray 16 GM Bottle NASBOTH SCH (08:53)
[2018-12-07] MEDS: Acetaminophen/HYDROcodone 325-10 MG Tab PO PRN (08:59)
[2018-12-07] MEDS: Lansoprazole [Prevacid] 30 MG PO SCH (09:02)
--- NOTE | 2018-12-07 09:59 | PCM.DCSUM1 ---
Discharge Summary - Hospital Course Brief History: This 63 year old male with pmh of PAD with iliac artery stenting and L femoral bypass in 2007, HTN, dyslipidemia, and history of DVT with chronic anticoagulation on Coumadin presented to the ED with complaints of epigastric and RUQ abdominal pain. He reports this started around and it slowly progressed to the point last evening it was unbearable. He denies obvious injury or trauma. No recent physical activity or carrying objects. As he was recalling this, he remembered on Wednesday he had a rental truck and had to lean over the bed of the truck. He leaned over with bottom of ribcage pressured firmaly against the truck and he remembers it hurting. This is the only thing he can recall injurying his abdomen. He denies fevers, chills, sinus congestion or cough. No chest pain or lower abdominal pain. No shortness of breath. No diarrhea or constipation. No black or bloody stools. No urinary troubles and no blood noted in his urine. He reports diet hasn't changed. He recently added B complex vitamin to his medication regimen. He is a former smoker, occasional social alcohol use and no recreational drug use. He has no history of VA or CVA. He reports he takes 10 mg Coumadin daily, and that is how its been for years now. In in the ED, CBC stable. Hgb 13.6. BUN 25, Cr 1.5. INR 6.08. CXR negative. US of abdomen showed questionable soft tissue mass, recommended CT. CT of abdomen revealed lobular mass in the midline extraperitoneal fat at the level of the liver, likely hematoma, no active bleeding identified, recommended F/U 3-[address] Patent left iliac artery stent. He was given IVFs in ED with pain medications and admitted observation for pain secondary to abdominal soft tissue hematoma. PCP, Dr Dorado - Discharge Data Discharge Date: 12/07/18 Discharge Disposition: Home, Self-Care 01 Condition: Stable - Referral to Home Health Primary Care Physician: PCP None - Discharge Diagnosis/Problem(s) (1) Hematoma SNOMED Code(s): 151399069 ICD Code: T14.8XXA - OTHER INJURY OF UNSPECIFIED BODY REGION, INITIAL ENCOUNTER Status: Acute (2) Supratherapeutic INR SNOMED Code(s): 429849533 ICD Code: R79.1 - ABNORMAL COAGULATION PROFILE Status: Acute (3) HTN (hypertension) SNOMED Code(s): 81738037 ICD Code: I10 - ESSENTIAL (PRIMARY) HYPERTENSION Status: Chronic Qualifiers: Hypertension type: essential hypertension Qualified Code(s): I10 - Essential (primary) hypertension (4) Dyslipidemia SNOMED Code(s): 454125809 ICD Code: E78.5 - HYPERLIPIDEMIA, UNSPECIFIED Status: Chronic (5) Chronic anticoagulation SNOMED Code(s): 881558110 ICD Code: Z79.01 - RESIDENTIAL (CURRENT) USE OF ANTICOAGULANTS Status: Chronic (6) PAD (peripheral artery disease) SNOMED Code(s): 031966016 ICD Code: I73.9 - PERIPHERAL VASCULAR DISEASE, UNSPECIFIED Status: Chronic (7) Sinusitis SNOMED Code(s): 75890298 ICD Code: J32.9 - CHRONIC SINUSITIS, UNSPECIFIED Status: Acute Qualifiers: Sinusitis location: maxillary Chronicity: subacute Qualified Code(s): J01.00 - Acute maxillary sinusitis, unspecified - Discharge Plan Prescriptions/Med Rec: Acetaminophen/HYDROcodone [[place] 325-10 MG] 1 - 2 tab PO Q6H PRN #40 tablet PRN Reason: Pain Home Medications: Home Meds Warfarin [Coumadin] 10 mg PO ASDIRECTED 12/04/18 [History] Doxazosin [Cardura] 8 mg PO BEDTIME 12/05/18 [History] Finasteride 5 mg PO DAILY 12/05/18 [History] Lansoprazole [Prevacid] 30 mg PO DAILY 12/05/18 [History] Rosuvastatin Calcium 5 mg PO DAILY 12/05/18 [History] amLODIPine Besylate [Amlodipine Besylate] 10 mg PO DAILY 12/05/18 [History] Acetaminophen/HYDROcodone [[place] 325-10 MG] 1 - 2 tab PO Q6H PRN #40 tablet 04/26 [Rx] Docusate Sodium [Colace] 100 mg PO DAILY cap 12/07/18 [Rx] Fluticasone Propionate [Flonase] 1 spray NASBOTH DAILY bottle 12/07/18 [Rx] Loratadine [Claritin] 10 mg PO DAILY tablet 12/07/18 [Rx] Patient Handouts: Bleeding Precautions When on Anticoagulant Therapy, Adult, Acetaminophen; Hydrocodone tablets or capsules, What You Need to Know About Warfarin, Hematoma, [id number] Referrals: [facility] [Outside] - Discharge Summary/Plan Comment DC Time >30 min.: No Discharge Summary/Plan Comment: Admitting Diagnoses: Abdominal pain Abdominal soft tissue hematoma Supratherapeutic INR Discharge Diagnoses: Abdominal soft tissue hematoma Anticoagulation with Coumadin Other PMH Factor V PAD HTN Hx smoker Gurinder was admitted due to significant pain with abdominal soft tissue hematoma. He does not recall injury, but was noted to have INR 6.36 on admission. He reported leaning over his truck bed having some pain to that area, then days later having this pain. He is non complaint with INR check ups at [facility]. He was monitored here, INR today 1.87. Pain slowly improving. No active bleeding noted on CT. Coumadin 10 mg restarted. I spoke with Dr Pati Dorado regarding INR follow ups, she is aware of this and to repeat CT in 3-4 weeks to insure improving. Gurinder was sent home with 2 weeks of [place] for pain. Educated on signs to monitor for worsening bleeding. No driving on narcotics. He is to follow up tomorrow with INR in Dr Garcia office. She will help dose Coumadin. He is to return to ED or clinic if concerns should arise. - General Info Date of Service: 12/07/18 Admission Dx/Problem (Free Text: Admission Diagnosis/Problem Admission Diagnosis/Problem Hematoma Subjective Update: Doing well today, pain is well controlled. No chest pain or SOB. Feels constipated. continue stools softeners. Functional Status: Reports: Pain Controlled, Tolerating Diet, Ambulating, Urinating - Review of Systems General: Reports: No Symptoms HEENT: Reports: No Symptoms. Denies: Headaches, Sore Throat, Visual Changes Pulmonary: Reports: No Symptoms. Denies: Shortness of Breath Cardiovascular: Reports: No Symptoms. Denies: Chest Pain Gastrointestinal: Reports: Abdominal Pain (epigastric, region of hematoma). Denies: Nausea, Vomiting Genitourinary: Reports: No Symptoms. Denies: Dysuria, Frequency Musculoskeletal: Reports: No Symptoms Skin: Reports: No Symptoms Neurological: Reports: No Symptoms Psychiatric: Reports: No Symptoms - Patient Data Vitals - Most Recent: Last Vital Signs Temp 99.7 F 12/07/18 07:41 Pulse 78 12/07/18 07:41 Resp 16 12/07/18 07:41 BP 123/68 12/07/18 08:49 Pulse Ox 97 12/07/18 08:45 Weight - Most Recent: 102.058 kg I&O - Last 24 hours: Intake & Output 12/06/18 12/07/18 12/07/18 22:59 06:59 14:59 Intake Total 690 1240 Output Total 570 1050 Balance 120 190 Lab Results - Last 24 hrs: Laboratory Results - last 24 hr 12/07/18 12/07/18 12/07/18 Range/Units 05:41 05:41 05:41 WBC 5.86 (4.0-11.0) K/uL RBC 4.27 L (4.50-5.90) M/uL Hgb 12.4 L (13.0-17.0) g/dL Hct 38.7 (38.0-50.0) % MCV 90.6 (80.0-98.0) fL MCH 29.0 (27.0-32.0) pg MCHC 32.0 (31.0-37.0) g/dL RDW Std Deviation 49.9 (28.0-62.0) fl RDW Coeff of Marilee 15 (11.0-15.0) % Plt Count 278 (150-400) K/uL MPV 9.60 (7.40-12.00) fL Neut % (Auto) 73.7 (48.0-80.0) % Lymph % (Auto) 12.1 L (16.0-40.0) % [place] % (Auto) 10.2 (0.0-15.0) % Eos % (Auto) 3.8 (0.0-7.0) % Baso % (Auto) 0.2 (0.0-1.5) % Neut # (Auto) 4.3 (1.4-5.7) K/uL Lymph # (Auto) 0.7 (0.6-2.4) K/uL [place] # (Auto) 0.6 (0.0-0.8) K/uL Eos # (Auto) 0.2 (0.0-0.7) K/uL Baso # (Auto) 0.0 (0.0-0.1) K/uL Nucleated RBC % 0.0 /100WBC Nucleated RBCs # 0 K/uL INR 1.87 Sodium 141 (136-148) mmol/L Potassium 4.4 (3.5-5.1) mmol/L Chloride 104 (98-107) mmol/L Carbon Dioxide 30.3 (21.0-32.0) mmol/L BUN 24 H (7.0-18.0) mg/dL Creatinine 1.4 H (0.8-1.3) mg/dL Est Cr Clr Drug Dosing 60.05 mL/min Estimated GFR (MDRD) 51.4 ml/min Glucose 121 H (74-106) mg/dL Calcium 8.4 L (8.5-10.1) mg/dL Med Orders - Current: Current Medications Hydrocodone Bitart/Acetaminophen ([place] 325-10 Mg) 1 - 2 tab PO Q4H PRN PRN Reason: Pain Last Admin: 12/07/18 08:59 Dose: 1 tab Amlodipine Besylate (Norvasc) 10 mg PO DAILY [facility] Last Admin: 12/07/18 08:49 Dose: 10 mg Benzocaine/Menthol (Cepacol Sore Throat) 1 lozenge MUCMEM Q6HR PRN PRN Reason: Sore Throat Last Admin: 12/06/18 23:26 Dose: 1 lozenge Docusate Sodium (Colace) 100 mg PO DAILY [facility] Last Admin: 12/07/18 08:49 Dose: 100 mg Doxazosin Mesylate (Cardura) 8 mg PO BEDTIME [facility] Last Admin: 12/06/18 20:59 Dose: 8 mg Finasteride (Proscar) 5 mg PO DAILY [facility] Last Admin: 12/07/18 08:51 Dose: 5 mg Fluticasone Propionate (Flonase) 0 gm NASBOTH DAILY [facility] Last Admin: 12/07/18 08:53 Dose: 1 spray Loratadine (Claritin) 10 mg PO DAILY [facility] Last Admin: 12/07/18 08:49 Dose: 10 mg Ondansetron HCl (Zofran) 4 mg IVPUSH Q4H PRN PRN Reason: Nausea Last Admin: 12/05/18 17:16 Dose: 4 mg Lansoprazole [ (Prevacid] 30 Mg) 30 each PO DAILY [facility] Last Admin: 12/07/18 09:02 Dose: Not Given Rosuvastatin Calcium (Crestor) 5 mg PO DAILY [facility] Last Admin: 12/07/18 08:52 Dose: 5 mg Sodium Chloride (Saline Flush) 10 ml FLUSH ASDIRECTED PRN PRN Reason: Keep Vein Open Last Admin: 12/04/18 21:18 Dose: 10 ml Sodium Chloride (Saline Flush) 2.5 ml FLUSH ASDIRECTED PRN PRN Reason: Keep Vein Open Last Admin: 12/04/18 21:18 Dose: 2.5 ml Warfarin Sodium (Coumadin Ask) 1 each PO DAILY@1400 [facility] Last Admin: 12/06/18 14:26 Dose: Not Given Discontinued Medications Hydromorphone HCl (Dilaudid) 1 mg IVPUSH ONETIME ONE Stop: 12/04/18 20:58 Last Admin: 12/04/18 21:14 Dose: 1 mg Hydromorphone HCl (Dilaudid) 1 mg IVPUSH ONETIME ONE Stop: 12/04/18 23:15 Last Admin: 12/04/18 23:20 Dose: 1 mg Hydromorphone HCl (Dilaudid) 1 mg IVPUSH Q3H PRN PRN Reason: Pain Last Admin: 12/06/18 03:03 Dose: 1 mg Sodium Chloride (Normal Saline) 1,000 mls @ 999 mls/hr IV .Bolus ONE Stop: 12/04/18 21:57 Last Admin: 12/04/18 21:10 Dose: 999 mls/hr Iopamidol (Isovue Multipack-370 (76%)) 85 ml IVPUSH ONETIME STA Stop: 12/04/18 23:38 Last Admin: 12/04/18 23:38 Dose: 85 ml Magnesium Citrate (Citrate Of Magnesia) 148 ml PO ONETIME ONE Stop: 12/07/18 08:49 Last Admin: 12/07/18 09:00 Dose: 148 ml Ondansetron HCl (Zofran) 4 mg IVPUSH ONETIME ONE Stop: 12/04/18 20:58 Last Admin: 12/04/18 21:12 Dose: 4 mg Warfarin Sodium (Coumadin) 10 mg PO ONETIME ONE Stop: 12/07/18 07:59 Last Admin: 12/07/18 08:48 Dose: 10 mg - Exam General: Reports: Alert, Oriented, Cooperative Lungs: Reports: Clear to Auscultation, Normal Respiratory Effort Cardiovascular: Reports: Regular Rate, Regular Rhythm GI/Abdominal Exam: Normal Bowel Sounds, Soft, Tender (epigastric, scnat brusing noted to skin. ) Back Exam: Reports: Normal Inspection, Full Range of Motion Skin: Reports: Ecchymosis (epigastric) Wound/Incisions: Reports: Healing Well Neurological: Reports: No New Focal Deficit *Q Meaningful Use (DIS) - VTE *Q VTE Pharmacological Contraindications *Q: Risk of Bleeding
== END 2018-12-07 11:20 | disposition home or self-care (01) | DRG 351 ==
LOC: MW.ED 20:39 → MW.MS 12-05 00:55 → OBSVTOIN 12-05 10:55
PROVIDERS: ADMIT Internal Medicine; ATTEND Internal Medicine
DX: M79.81 Nontraumatic hematoma of soft tissue (principal); I10 Essential (primary) hypertension; D68.51 Activated protein C resistance; E78.5 Hyperlipidemia, unspecified; I73.9 Peripheral vascular disease, unspecified; E78.00 Pure hypercholesterolemia, unspecified; E66.9 Obesity, unspecified; J01.00 Acute maxillary sinusitis, unspecified; Z79.01 Long term (current) use of anticoagulants; Z88.6 Allergy status to analgesic agent; Z79.899 Other long term (current) drug therapy; Z68.30 Body mass index [BMI] 30.0-30.9, adult; Z86.718 Personal history of other venous thrombosis and embolism; Z87.891 Personal history of nicotine dependence
CPT/HCPCS: 36415; 70450; 70450-26; 71045; 71045-26; 74177; 74177-26; 76705; 76705-26; 80048; 80053; 81001; 82553; 83690; 84484; 85025; 85610; 93005; 96361; 96374; 96375; 96376; 99284; 99285-25; A9270-GY; J1170; J2405; J7040; Q9967

== ENCOUNTER 2019-04-15 13:51 | Inpatient (IN) | payer BC, OTHER ==
--- NOTE | 2019-04-15 14:07 | EDM.PDOC ---
ED HPI GENERAL MEDICAL PROBLEM - General Chief Complaint: Trauma Stated Complaint: POSSIBLE HIP FRACTURE Time Seen by Provider: 04/15/19 13:57 Source of Information: Reports: Patient History Limitations: Reports: No Limitations - History of Present Illness INITIAL COMMENTS - FREE TEXT/NARRATIVE: This 64 year old male fell on ice injuring his left hip. He complains of pain in the left hip that increases with any movement. Unable to bear weight on the left leg. He is on Coumadin. Onset: Sudden (today just prior to arrival) Severity: Moderate (to severe pain in left lateral hip area) Improves with: Reports: Immobilization Worsens with: Reports: Movement Associated Symptoms: Reports: No Other Symptoms Left hip Pain Score (Numeric/FACES): 7 - Related Data Allergies Allergy/AdvReac Type Severity Reaction Status Date / Time propoxyphene [From Darvon] Allergy Nausea Verified 04/15/19 14:07 Home Meds: Home Meds Warfarin [Coumadin] 10 mg PO ASDIRECTED 12/04/18 [History] Doxazosin [Cardura] 8 mg PO BEDTIME 12/05/18 [History] Finasteride 5 mg PO DAILY 12/05/18 [History] Lansoprazole [Prevacid] 30 mg PO DAILY 12/05/18 [History] Rosuvastatin Calcium 5 mg PO DAILY 12/05/18 [History] amLODIPine Besylate [Amlodipine Besylate] 10 mg PO DAILY 12/05/18 [History] Acetaminophen/HYDROcodone [[place] 325-10 MG] 1 - 2 tab PO Q6H PRN #40 tablet 04/26 [Rx] Docusate Sodium [Colace] 100 mg PO DAILY cap 12/07/18 [Rx] Fluticasone Propionate [Flonase] 1 spray NASBOTH DAILY bottle 12/07/18 [Rx] Loratadine [Claritin] 10 mg PO DAILY tablet 12/07/18 [Rx] Past Medical History Cardiovascular History: Reports: Blood Clots/VTE/DVT, High Cholesterol, Hypertension, PVD (femoral bypass in 2007, with L common iliac arterty stenting. ), Stents Other Cardiovascular History: Arterial procedure in Left leg per PT Respiratory History: Reports: None. Denies: Asthma, COPD Gastrointestinal History: Reports: None. Denies: GERD, GI Bleed Genitourinary History: Reports: None. Denies: Chronic Renal Insuffiency Other Musculoskeletal History: left leg arterial procedure per PT Neurological History: Reports: None. Denies: CVA, TIA Psychiatric History: Reports: None Endocrine/Metabolic History: Reports: Obesity/BMI 30+. Denies: Diabetes, Type II - Infectious Disease History Infectious Disease History: Reports: Chicken Pox, Measles, Mumps - Past Surgical History Cardiovascular Surgical History: Reports: Vascular Surgery (femoral bypass with left common iliac arterty stenting to) Social & Family History - Family History Family Medical History: Noncontributory - Caffeine Use Caffeine Use: Reports: Coffee, Soda - Living Situation & Occupation Living situation: Reports: Occupation: Employed Review of Systems - Review of Systems Review Of Systems: See Below Constitutional: Reports: No Symptoms Eyes: Reports: No Symptoms Ears: Reports: No Symptoms Nose: Reports: No Symptoms Mouth/Throat: Reports: No Symptoms Respiratory: Reports: No Symptoms Cardiovascular: Reports: No Symptoms GI/Abdominal: Reports: No Symptoms Genitourinary: Reports: No Symptoms Musculoskeletal: Reports: Leg Pain (left hip) Skin: Reports: No Symptoms Neurological: Reports: No Symptoms ED EXAM, GENERAL - Physical Exam Exam: See Below Exam Limited By: No Limitations General Appearance: Alert, WD/WN, Moderate Distress (complaining of left hip pain) Eye Exam: Bilateral Eye: EOMI, Normal Inspection, PERRL Ears: Normal External Exam, Normal Canal, Hearing Grossly Normal, Normal TMs Ear Exam: Bilateral Ear: Auricle Normal, Canal Normal, TM normal Nose: Normal Inspection, Normal Mucosa, No Blood Throat/Mouth: Normal Inspection, Normal Lips, Normal Teeth, Normal Gums, Normal Oropharynx, Normal Voice, No Airway Compromise Head: Atraumatic, Normocephalic Neck: Normal Inspection, Supple, Non-Tender, Full Range of Motion Respiratory/Chest: No Respiratory Distress, Lungs Clear, Normal Breath Sounds, No Accessory Muscle Use, Chest Non-Tender Cardiovascular: Normal Peripheral Pulses, Regular Rate, Rhythm, No Edema, No Gallop, No JVD, Systolic Murmur (soft systolic ejection murmur grade 2/6 best heard at the apex without radiation) Peripheral Pulses: 3+: Carotid (L), Carotid (R), Femoral (L), Femoral (R), Dorsalis Pedis (L), Dorsalis Pedis (R) GI/Abdominal: Normal Bowel Sounds, Soft, Non-Tender, No Organomegaly, No Distention, No Abnormal Bruit, No Mass (Male) Exam: Deferred Rectal (Males) Exam: Deferred Back Exam: Normal Inspection, Full Range of Motion, NT Extremities: Leg Pain (left leg pain with movement.), Other (swollen and tender over the proximal lateral femur. Unable to move left leg due to severe pain). No: Gwendolyn's Sign Neurological: Alert, Oriented, CN II-XII Intact, Normal Cognition, Normal Reflexes, No Motor/Sensory Deficits Psychiatric: Normal Affect, Normal Mood Skin Exam: Warm, Dry, Intact, Normal Color, No Rash Course - Vital Signs Text/Narrative:: I spoke with Dr. Galaviz (Ortho) at 3:46PM regarding the subcapital fracture of the left femur. He would like this patient admitted to the Hospitalist and he will operate on Wednesday. He is aware that the patient is on Coumadin. I talked with Dr. Yoo at 3:55PM regarding this patient. He will be admitted to her service as a regular admission and TELE. I discussed the admission with and Mrs. Cassidy and they agree with the admission plan. Last Recorded V/S: Last Vital Signs Temp 98.7 F 04/15/19 13:55 Pulse 70 04/15/19 13:55 Resp 16 04/15/19 13:55 BP 145/70 H 04/15/19 13:55 Pulse Ox 94 L 04/15/19 13:55 - Orders/Labs/Meds Orders: Active Orders 24 hr Category Date Time Status Admission Status [Patient Status] [ADT] Stat ADT 04/15/19 16:11 Ordered EKG 12 Lead [EKG Documentation Completion] [RC] STAT Care 04/15/19 16:10 Ordered UA W/JUDY RFLX IF INDICATED [URIN] Stat Lab 04/15/19 14:02 Ordered Labs: Laboratory Tests 04/15/19 04/15/19 04/15/19 Range/Units 14:19 14:19 14:19 WBC 7.88 (4.0-11.0) K/uL RBC 5.43 (4.50-5.90) M/uL Hgb 15.9 (13.0-17.0) g/dL Hct 47.1 (38.0-50.0) % MCV 86.7 (80.0-98.0) fL MCH 29.3 (27.0-32.0) pg MCHC 33.8 (31.0-37.0) g/dL RDW Std Deviation 48.1 (28.0-62.0) fl RDW Coeff of Marilee 15 (11.0-15.0) % Plt Count 243 (150-400) K/uL MPV 10.50 (7.40-12.00) fL Neut % (Auto) 84.7 H (48.0-80.0) % Lymph % (Auto) 6.9 L (16.0-40.0) % [place] % (Auto) 6.0 (0.0-15.0) % Eos % (Auto) 1.9 (0.0-7.0) % Baso % (Auto) 0.5 (0.0-1.5) % Neut # (Auto) 6.7 H (1.4-5.7) K/uL Lymph # (Auto) 0.5 L (0.6-2.4) K/uL [place] # (Auto) 0.5 (0.0-0.8) K/uL Eos # (Auto) 0.2 (0.0-0.7) K/uL Baso # (Auto) 0.0 (0.0-0.1) K/uL Nucleated RBC % 0.0 /100WBC Nucleated RBCs # 0 K/uL INR 1.88 APTT 30.3 (18.6-31.3) SEC Sodium 140 (136-148) mmol/L Potassium 5.1 (3.5-5.1) mmol/L Chloride 106 (98-107) mmol/L Carbon Dioxide 26.9 (21.0-32.0) mmol/L BUN 23 H (7.0-18.0) mg/dL Creatinine 1.3 (0.8-1.3) mg/dL Est Cr Clr Drug Dosing 8.21 mL/min Estimated GFR (MDRD) 55.8 ml/min Glucose 144 H (74-106) mg/dL Calcium 8.7 (8.5-10.1) mg/dL Total Bilirubin 0.3 (0.2-1.0) mg/dL AST 18 (15-37) IU/L ALT 32 (14-63) IU/L Alkaline Phosphatase 74 (46-116) U/L Total Protein 7.2 (6.4-8.2) g/dL Albumin 3.6 (3.4-5.0) g/dL Globulin 3.6 (2.6-4.0) g/dL Albumin/Globulin Ratio 1.0 (0.9-1.6) Meds: Medications Discontinued Medications Generic Name Dose Route Start Last Admin Trade Name Freq PRN Reason Stop Dose Admin Fentanyl 50 mcg 04/15/19 16:10 Fentanyl IVPUSH 04/15/19 16:11 ONETIME ONE Morphine Sulfate 4 mg 04/15/19 14:30 04/15/19 14:44 Morphine IVPUSH 04/15/19 14:31 4 mg ONETIME ONE Administration Ondansetron HCl 4 mg 04/15/19 14:30 04/15/19 14:40 Zofran IVPUSH 04/15/19 14:31 4 mg ONETIME ONE Administration Departure - Departure Time of Disposition: 16:08 Disposition: Admitted As Inpatient 67 Condition: Good Clinical Impression: Subcapital fracture of neck of left femur Qualifiers: Encounter type: initial encounter Fracture type: closed Qualified Code(s): S72.012A - Unspecified intracapsular fracture of left femur, initial encounter for closed fracture - Discharge Information *PRESCRIPTION DRUG MONITORING PROGRAM REVIEWED*: Yes *COPY OF PRESCRIPTION DRUG MONITORING REPORT IN PATIENT FAMILIA: Yes Referrals: PCP,None [Primary Care Provider] - Forms: ED Department Discharge Sepsis Event Note - Focused Exam Vital Signs: Vital Signs Temp Pulse Resp BP Pulse Ox 04/15/19 13:55 98.7 F 70 16 145/70 H 94 L Date Exam was Performed: 04/15/19 Time Exam was Performed: 16:13 - My Orders Last 24 Hours: My Active Orders 04/15/19 14:02 UA W/JUDY RFLX IF INDICATED [URIN] Stat 04/15/19 16:10 EKG 12 Lead [EKG Documentation Completion] [RC] STAT 04/15/19 16:11 Admission Status [Patient Status] [ADT] Stat - Assessment/Plan Last 24 Hours: My Active Orders 04/15/19 14:02 UA W/JUDY RFLX IF INDICATED [URIN] Stat 04/15/19 16:10 EKG 12 Lead [EKG Documentation Completion] [RC] STAT 04/15/19 16:11 Admission Status [Patient Status] [ADT] Stat
[2019-04-15] MEDS ORDERED: Ondansetron 4 MG/2 ML SDV IVPUSH ONE (14:30)
[2019-04-15] MEDS ORDERED: Morphine 4 MG/ML Syringe IVPUSH ONE (14:30)
[2019-04-15 14:55] LABS: CARBON DIOXIDE,CO2 26.9 mmol/L (21.0-32.0); POTASSIUM,K 5.1 mmol/L (3.5-5.1)
--- NOTE | 2019-04-15 14:55 | CR ---
Left hip: AP view of the left hip was obtained. Subcapital fracture noted within the left hip. No additional abnormality is seen on this AP study. Impression: 1. Subcapital fracture. Diagnostic code #3 This report was dictated in [place] Standard Time
--- NOTE | 2019-04-15 14:55 | CR ---
Left femur: AP and lateral views left femur were obtained. Positioning is somewhat less than optimal. There is a fracture being seen within the subcapital region of the left hip. Surgical clips are seen within the medial thigh. No additional fracture is definitely appreciated within the femur. Impression: 1. Subcapital fracture. 2. Less than optimal positioning presumably because of the fracture. 3. No other acute abnormality is definitely seen. Diagnostic code #3 This report was dictated in [place] Standard Time
--- NOTE | 2019-04-15 15:40 | CT ---
CT pelvis Technique: Multiple axial sections through the pelvis were obtained. Reconstructed coronal and sagittal images were obtained. Comparison: Prior left hip study performed earlier on the same day (2:02 PM). Subcapital fracture is seen. There is apex angulation being seen on this exam with more posterior impaction then anterior impaction. No additional pelvic fracture is identified. No intrapelvic abnormality is seen. Impression: 1. Subcapital fracture with apex anterior angulation involving the left hip. Diagnostic code #3 This report was dictated in [place] Standard Time
[2019-04-15] MEDS ORDERED: fentaNYL 50 MCG/ML SDV IVPUSH ONE (16:10)
[2019-04-15] MEDS ORDERED: fentaNYL 100 MCG/2 ML SDV ONE (16:16)
[2019-04-15] MEDS ORDERED: Albuterol/Ipratropium 3.0-0.5 MG/3 ML Neb Soln NEB PRN (16:50)
[2019-04-15] MEDS ORDERED: Morphine 10 MG/ML Syringe IVPUSH PRN (16:50)
--- NOTE | 2019-04-15 16:53 | PCM.HP.2 ---
H&P History of Present Illness - General Date of Service: 04/15/19 Admit Problem/Dx: Admission Diagnosis/Problem Admission Diagnosis/Problem Subcapital fracture of left femur Source of Information: Patient History Limitations: Reports: No Limitations - History of Present Illness Initial Comments - Free Text/Narative: 64 year old male with H/O left iliac artery stent and lower extremity arterial bypass grafting in 2007, On warfarin for peripheral vascular disease and thrombosis comes n for left hip pain. He suffered a mechanical fall when he slipped on the ice today. In ER x-rays and CT scan, reveled a displaced femoral neck fracture. He denies head trauma or LOC, chest paain, SOB, Dizziness, palpitation. Complaining of severe hip pain. Patient underwent a nerve block for pain control. Ortho recommended holding surgery till Wednesday due to patient being on Coumadin. Patient states that his last dose was on , he skips his dose on Wednesday and Wednesday. Patient is being admitted to hospital for further management. Onset of Symptoms: Reports: Today Duration of Symptoms: Reports: Hour(s): Severity: Moderate Improves with: Reports: Immobilization, Medication Worsens with: Reports: Movement Left hip Pain Score (Numeric/FACES): 7 - Related Data Allergies/Adverse Reactions: Allergies Allergy/AdvReac Type Severity Reaction Status Date / Time propoxyphene [From Darvon] Allergy Nausea Verified 04/15/19 20:17 Home Medications: Home Meds Warfarin [Coumadin] 10 mg PO ASDIRECTED 12/04/18 [History] Doxazosin [Cardura] 8 mg PO BEDTIME 12/05/18 [History] Finasteride 5 mg PO DAILY 12/05/18 [History] Lansoprazole [Prevacid] 30 mg PO DAILY 12/05/18 [History] Rosuvastatin Calcium 5 mg PO DAILY 12/05/18 [History] amLODIPine Besylate [Amlodipine Besylate] 10 mg PO DAILY 12/05/18 [History] Acetaminophen/HYDROcodone [[place] 325-10 MG] 1 - 2 tab PO Q6H PRN #40 tablet 04/26 [Rx] Docusate Sodium [Colace] 100 mg PO DAILY cap 12/07/18 [Rx] Fluticasone Propionate [Flonase] 1 spray NASBOTH DAILY bottle 12/07/18 [Rx] Loratadine [Claritin] 10 mg PO DAILY tablet 12/07/18 [Rx] Past Medical History Cardiovascular History: Reports: Blood Clots/VTE/DVT, High Cholesterol, Hypertension, PVD (femoral bypass in 2007, with L common iliac arterty stenting. ), Stents Other Cardiovascular History: Arterial procedure in Left leg per PT Respiratory History: Reports: None. Denies: Asthma, COPD Gastrointestinal History: Reports: None. Denies: GERD, GI Bleed Genitourinary History: Reports: None. Denies: Chronic Renal Insuffiency Other Musculoskeletal History: left leg arterial procedure per PT Neurological History: Reports: None. Denies: CVA, TIA Psychiatric History: Reports: None Endocrine/Metabolic History: Reports: Obesity/BMI 30+. Denies: Diabetes, Type II - Infectious Disease History Infectious Disease History: Reports: Chicken Pox, Measles, Mumps - Past Surgical History Cardiovascular Surgical History: Reports: Vascular Surgery (femoral bypass with left common iliac arterty stenting to) Social & Family History - Family History Family Medical History: Noncontributory - Caffeine Use Caffeine Use: Reports: Coffee, Soda - Living Situation & Occupation Living situation: Reports: Occupation: Employed H&P Review of Systems - Review of Systems: Review Of Systems: See Below General: Denies: Fever, Chills HEENT: Denies: Dysphasia, Ear Pain, Eye Pain Pulmonary: Denies: Shortness of Breath, Wheezing, Pleuritic Chest Pain Cardiovascular: Denies: Chest Pain, Palpitations, Dyspnea on Exertion Gastrointestinal: Denies: Abdominal Pain, Anorexia Genitourinary: Denies: Dysuria, Frequency, Burning Musculoskeletal: Denies: Neck Pain, Shoulder Pain, Arm Pain Skin: Denies: Cyanosis, Jaundice Psychiatric: Denies: Confusion, Depression, Mood Lability Neurological: Denies: Confusion, Dizziness, Headache Hematologic/Lymphatic: Reports: Easy Bleeding, Easy Bruising. Denies: Anemia Exam - Exam Exam: See Below - Vital Signs Vital Signs: Last Vital Signs Temp 37.1 C 04/15/19 13:55 Pulse 70 04/15/19 13:55 Resp 16 04/15/19 13:55 BP 145/70 H 04/15/19 13:55 Pulse Ox 94 L 04/15/19 13:55 Weight: 9.979 kg - Exam General: Alert, Oriented Neck: Supple, Trachea Midline Lungs: Clear to Auscultation, Normal Respiratory Effort Cardiovascular: Regular Rate, Regular Rhythm, Normal S1, Normal S2 GI/Abdominal Exam: Normal Bowel Sounds, Soft, Non-Tender Extremities: No Pedal Edema, Leg Pain, Limited Range of Motion Peripheral Pulses: 3+: Dorsalis Pedis (L), Dorsalis Pedis (R) Skin: Warm Neuro Extensive - Mental Status: Alert, Oriented x3 - Patient Data Lab Results Last 24 hrs: Laboratory Results - last 24 hr 04/15/19 04/15/19 04/15/19 Range/Units 14:19 14:19 14:19 WBC 7.88 (4.0-11.0) K/uL RBC 5.43 (4.50-5.90) M/uL Hgb 15.9 (13.0-17.0) g/dL Hct 47.1 (38.0-50.0) % MCV 86.7 (80.0-98.0) fL MCH 29.3 (27.0-32.0) pg MCHC 33.8 (31.0-37.0) g/dL RDW Std Deviation 48.1 (28.0-62.0) fl RDW Coeff of Marilee 15 (11.0-15.0) % Plt Count 243 (150-400) K/uL MPV 10.50 (7.40-12.00) fL Neut % (Auto) 84.7 H (48.0-80.0) % Lymph % (Auto) 6.9 L (16.0-40.0) % [place] % (Auto) 6.0 (0.0-15.0) % Eos % (Auto) 1.9 (0.0-7.0) % Baso % (Auto) 0.5 (0.0-1.5) % Neut # (Auto) 6.7 H (1.4-5.7) K/uL Lymph # (Auto) 0.5 L (0.6-2.4) K/uL [place] # (Auto) 0.5 (0.0-0.8) K/uL Eos # (Auto) 0.2 (0.0-0.7) K/uL Baso # (Auto) 0.0 (0.0-0.1) K/uL Nucleated RBC % 0.0 /100WBC Nucleated RBCs # 0 K/uL INR 1.88 APTT 30.3 (18.6-31.3) SEC Sodium 140 (136-148) mmol/L Potassium 5.1 (3.5-5.1) mmol/L Chloride 106 (98-107) mmol/L Carbon Dioxide 26.9 (21.0-32.0) mmol/L BUN 23 H (7.0-18.0) mg/dL Creatinine 1.3 (0.8-1.3) mg/dL Est Cr Clr Drug Dosing 8.21 mL/min Estimated GFR (MDRD) 55.8 ml/min Glucose 144 H (74-106) mg/dL Calcium 8.7 (8.5-10.1) mg/dL Total Bilirubin 0.3 (0.2-1.0) mg/dL AST 18 (15-37) IU/L ALT 32 (14-63) IU/L Alkaline Phosphatase 74 (46-116) U/L Total Protein 7.2 (6.4-8.2) g/dL Albumin 3.6 (3.4-5.0) g/dL Globulin 3.6 (2.6-4.0) g/dL Albumin/Globulin Ratio 1.0 (0.9-1.6) Result Diagrams: 04/15/19 14:19 04/15/19 14:19 Sepsis Event Note - Evaluation Sepsis Screening Result: No Definite Risk - Focused Exam Vital Signs: Vital Signs Temp Pulse Resp BP Pulse Ox 04/15/19 13:55 37.1 C 70 16 145/70 H 94 L Date Exam was Performed: 04/15/19 Time Exam was Performed: 20:25 - Problem List (1) Subcapital fracture of neck of left femur SNOMED Code(s): 560138490 ICD Code: S72.012A - UNSP INTRACAPSULAR FRACTURE OF LEFT FEMUR, INIT FOR CLOS FX Status: Acute Current Visit: Yes Qualifiers: Encounter type: initial encounter Fracture type: closed Qualified Code(s) : S72.012A - Unspecified intracapsular fracture of left femur, initial encounter for closed fracture (2) Hematoma SNOMED Code(s): 306327898 ICD Code: T14.8XXA - OTHER INJURY OF UNSPECIFIED BODY REGION, INITIAL ENCOUNTER Status: Acute Current Visit: No (3) Chronic anticoagulation SNOMED Code(s): 079091698 ICD Code: Z79.01 - FRACTIONATING STILL OPERATOR (CURRENT) USE OF ANTICOAGULANTS Status: Chronic Current Visit: No (4) Dyslipidemia SNOMED Code(s): 651387568 ICD Code: E78.5 - HYPERLIPIDEMIA, UNSPECIFIED Status: Chronic Current Visit: No (5) HTN (hypertension) SNOMED Code(s): 36578219 ICD Code: I10 - ESSENTIAL (PRIMARY) HYPERTENSION Status: Chronic Current Visit: No Qualifiers: Hypertension type: essential hypertension Qualified Code(s): I10 - Essential (primary) hypertension Problem List Initiated/Reviewed/Updated: Yes Orders Last 24hrs: Active Orders 24 hr Category Date Time Status Admission Status [Patient Status] [ADT] Stat ADT 04/15/19 16:11 Active Antiembolic Devices [RC] PER UNIT ROUTINE Care 04/15/19 16:52 Ordered EKG 12 Lead [EKG Documentation Completion] [RC] STAT Care 04/15/19 16:10 Active Oxygen Therapy [RC] PRN Care 04/15/19 16:50 Ordered Pulse Oximetry [RC] PRN Care 04/15/19 16:51 Ordered RT Aerosol Therapy [RC] ASDIRECTED Care 04/15/19 16:53 Ordered Urinary Catheter Assessment [RC] ASDIRECTED Care 04/15/19 16:50 Ordered VTE/DVT Education [RC] PER UNIT ROUTINE Care 04/15/19 16:50 Ordered Vital Signs [RC] Q4H Care 04/15/19 16:50 Ordered Heart Healthy Diet [DIET] Diet 04/15/19 Dinner Ordered UA W/JUDY RFLX IF INDICATED [URIN] Stat Lab 04/15/19 14:02 Ordered Albuterol/Ipratropium [DuoNeb 3.0-0.5 MG/3 ML] Med 04/15/19 16:50 Ordered 3 ml NEB Q4HRRT PRN Morphine Med 04/15/19 16:50 Ordered 2 mg IVPUSH Q4H PRN Pantoprazole [ProTONIX IV] Med 04/15/19 21:00 Ordered 40 mg IV Q12HR Sodium Chloride 0.9% @ 125 MLS/HR (1000ml) Med 04/15/19 17:00 Ordered Sodium Chloride 0.9% [Normal Saline] 1,000 ml IV ASDIRECTED Sequential Compression Device [OM.PC] Per Unit Routine Oth 04/15/19 16:51 Ordered Assessment/Plan Comment:: A/P: 64 y/o M admitted for left femoral fracture On Coumadin, ortho recommenced holding surgery till Wednesday RECORDS CUSTODIAN assessed patient at bedside for pre-op evaluation , requesting records from his vascular surgeon, so far unable to obtain records due to weekend schedule CXR noted, EKG noted Will hold Coumadin for now, Hb stable SCD for DVT ppx Pain control with Dilaudid, s/p nerve block in ER by RECORDS CUSTODIAN IV PPI Resume antihypertensive Will insert Agrawal Monitor ins and outs Monitor and replete electrolytes
--- NOTE | 2019-04-15 17:28 | PCM.CONS ---
H&P History of Present Illness - General Date of Service: 04/15/19 Admit Problem/Dx: Admission Diagnosis/Problem Admission Diagnosis/Problem Subcapital fracture of left femur Source of Information: Patient, EMS History Limitations: Reports: No Limitations - History of Present Illness Initial Comments - Free Text/Narative: 64 year old male with left hip pain. He slipped on the ice today. He had immediate onset of pain. He was seen in the emergency room. On x-rays and CT scan, he was noted to have a displaced femoral neck fracture. He denies head trauma or LOC. No CP or SOB. Complaining of severe hip pain. No other injuries. No foot numbness. H/O left iliac artery stent and lower extremity arterial bypass grafting in 2007. On warfarin for peripheral vascular disease and thrombosis. Left hip Pain Score (Numeric/FACES): 7 - Related Data Allergies/Adverse Reactions: Allergies Allergy/AdvReac Type Severity Reaction Status Date / Time propoxyphene [From Darvon] Allergy Nausea Verified 04/15/19 14:07 Home Medications: Home Meds Warfarin [Coumadin] 10 mg PO ASDIRECTED 12/04/18 [History] Doxazosin [Cardura] 8 mg PO BEDTIME 12/05/18 [History] Finasteride 5 mg PO DAILY 12/05/18 [History] Lansoprazole [Prevacid] 30 mg PO DAILY 12/05/18 [History] Rosuvastatin Calcium 5 mg PO DAILY 12/05/18 [History] amLODIPine Besylate [Amlodipine Besylate] 10 mg PO DAILY 12/05/18 [History] Acetaminophen/HYDROcodone [[place] 325-10 MG] 1 - 2 tab PO Q6H PRN #40 tablet 04/26 [Rx] Docusate Sodium [Colace] 100 mg PO DAILY cap 12/07/18 [Rx] Fluticasone Propionate [Flonase] 1 spray NASBOTH DAILY bottle 12/07/18 [Rx] Loratadine [Claritin] 10 mg PO DAILY tablet 12/07/18 [Rx] Past Medical History Cardiovascular History: Reports: Blood Clots/VTE/DVT, High Cholesterol, Hypertension, PVD, Stents Other Cardiovascular History: Arterial procedure in Left leg per PT Respiratory History: Reports: None Gastrointestinal History: Reports: None Genitourinary History: Reports: None Other Musculoskeletal History: left leg arterial procedure per PT Neurological History: Reports: None Psychiatric History: Reports: None Endocrine/Metabolic History: Reports: Obesity/BMI 30+ - Infectious Disease History Infectious Disease History: Reports: Chicken Pox, Measles, Mumps - Past Surgical History Cardiovascular Surgical History: Reports: Vascular Surgery Social & Family History - Family History Family Medical History: Noncontributory - Tobacco Use Smoking Status *Q: Unknown Ever Smoked Second Hand Smoke Exposure: No - Caffeine Use Caffeine Use: Reports: Coffee - Recreational Drug Use Recreational Drug Use: No - Living Situation & Occupation Living situation: Reports: Occupation: Employed H&P Review of Systems - Review of Systems: Review Of Systems: See Below General: Reports: No Symptoms Pulmonary: Reports: No Symptoms Cardiovascular: Reports: No Symptoms Gastrointestinal: Reports: No Symptoms Musculoskeletal: Reports: Joint Pain Skin: Reports: No Symptoms Psychiatric: Reports: No Symptoms Exam - Exam Exam: See Below - Vital Signs Vital Signs: Last Vital Signs Temp 98.7 F 04/15/19 13:55 Pulse 70 04/15/19 13:55 Resp 16 04/15/19 13:55 BP 145/70 H 04/15/19 13:55 Pulse Ox 94 L 04/15/19 13:55 Weight: 22 lb - Exam Extremities: Other (Skin intact) Physical Exam Comments:: Skin intact Hip range of motion, stability, palpation, and strength testing deferred due to fracture Dorsalis pedis pulse palpable Normal sensation to light touch Moves toes - Patient Data Lab Results Last 24 hrs: Laboratory Results - last 24 hr 04/15/19 04/15/19 04/15/19 Range/Units 14:19 14:19 14:19 WBC 7.88 (4.0-11.0) K/uL RBC 5.43 (4.50-5.90) M/uL Hgb 15.9 (13.0-17.0) g/dL Hct 47.1 (38.0-50.0) % MCV 86.7 (80.0-98.0) fL MCH 29.3 (27.0-32.0) pg MCHC 33.8 (31.0-37.0) g/dL RDW Std Deviation 48.1 (28.0-62.0) fl RDW Coeff of [place] 15 (11.0-15.0) % Plt Count 243 (150-400) K/uL MPV 10.50 (7.40-12.00) fL Neut % (Auto) 84.7 H (48.0-80.0) % Lymph % (Auto) 6.9 L (16.0-40.0) % [place] % (Auto) 6.0 (0.0-15.0) % Eos % (Auto) 1.9 (0.0-7.0) % Baso % (Auto) 0.5 (0.0-1.5) % Neut # (Auto) 6.7 H (1.4-5.7) K/uL Lymph # (Auto) 0.5 L (0.6-2.4) K/uL [place] # (Auto) 0.5 (0.0-0.8) K/uL Eos # (Auto) 0.2 (0.0-0.7) K/uL Baso # (Auto) 0.0 (0.0-0.1) K/uL Nucleated RBC % 0.0 /100WBC Nucleated RBCs # 0 K/uL INR 1.88 APTT 30.3 (18.6-31.3) SEC Sodium 140 (136-148) mmol/L Potassium 5.1 (3.5-5.1) mmol/L Chloride 106 (98-107) mmol/L Carbon Dioxide 26.9 (21.0-32.0) mmol/L BUN 23 H (7.0-18.0) mg/dL Creatinine 1.3 (0.8-1.3) mg/dL Est Cr Clr Drug Dosing 8.21 mL/min Estimated GFR (MDRD) 55.8 ml/min Glucose 144 H (74-106) mg/dL Calcium 8.7 (8.5-10.1) mg/dL Total Bilirubin 0.3 (0.2-1.0) mg/dL AST 18 (15-37) IU/L ALT 32 (14-63) IU/L Alkaline Phosphatase 74 (46-116) U/L Total Protein 7.2 (6.4-8.2) g/dL Albumin 3.6 (3.4-5.0) g/dL Globulin 3.6 (2.6-4.0) g/dL Albumin/Globulin Ratio 1.0 (0.9-1.6) Result Diagrams: 04/15/19 14:19 04/15/19 14:19 Sepsis Event Note - Evaluation Sepsis Screening Result: No Definite Risk - Focused Exam Vital Signs: Vital Signs Temp Pulse Resp BP Pulse Ox 04/15/19 13:55 98.7 F 70 16 145/70 H 94 L Date Exam was Performed: 04/15/19 Time Exam was Performed: 17:20 Consult PN Assessment/Plan Problem List Initiated/Reviewed/Updated: Yes Plan: Discussed with Dr. Yoo Anesthesia is assessing to confirm they feel he can be managed in [place] Will admit to hospitalist service Recommend warfarin reversal tomorrow for surgery Wednesday morning Discussed ORIF vs arthroplasty and total versus partial hip replacement. Based on the [facility] clinical practice guideline and patient's age and activity level, recommend SALUD. Patient agrees All questions answered. Requesting Provider: EDELMIRA Magaña Date Consult Requested: 04/15/19 Reason for Consult: Left displaced femoral neck fracture Patient History Reviewed: Yes Admission H&P Reviewed: No (Pending) Notified Requestor: Yes
[2019-04-15] MEDS ORDERED: HYDROmorphone 1 MG/ML Syringe IVPUSH ONE (17:40)
[2019-04-15] MEDS ORDERED: Bupivacaine 0.5% 10 ML SDV ONE (17:45)
[2019-04-15] MEDS ORDERED: Lidocaine 1% 20 ML MDV ONE (17:45)
[2019-04-15] MEDS ORDERED: Bupivacaine 0.5% 30 ML SDV ONE (17:48)
--- NOTE | 2019-04-15 18:52 | PCM.PRNOTE ---
- Free Text/Narrative Note: Anes NOte I was called to Er for consult for pain management. This patietn has a fractured left femur. Surgery is planned for Apr 17. I performed a left fascia iliaca nerve block using ultrasound guidance. Skin was prepped with chloraprep scrub. A sterile fenestrated drape was applied to left femoral area. The injection site was easily identified. The fasica iliac was entered with ultrasound guidance, and 25 cc 0.5% bupivicane was cautiously injected in slow increments with frequent aspirations. Barney well. Time with patient [id number] Khanh Dykes CRNA
--- NOTE | 2019-04-15 19:05 | CR ---
Chest: Supine portable view of the chest was obtained. Comparison: Prior chest x-ray of 12/04/18. Stable granuloma noted within the left lower lung. Questionable nodular density or mass seen within the right lung base which is not appreciated on prior exam. Lung markings are mildly increased which appears stable. No acute parenchymal change is seen. Heart size is normal. Mediastinum is normal. Bony structures show nothing acute. Impression: 1. Questionable new nodule or mass within the right lung base from prior chest x-ray. This finding measures around 1.5 cm in size. Nonemergent chest CT should be performed. This finding should not interfere with planned surgery. 2. Nothing acute is otherwise seen. Diagnostic code #9 Study was dictated in [place] Standard Time
[2019-04-15] MEDS: Sodium Chloride 0.9% 1,000 ML IV SCH (20:04)
[2019-04-15] MEDS ORDERED: diphenhydrAMINE 50 MG/ML SDV IVPUSH PRN (20:41)
[2019-04-15] MEDS ORDERED: Ondansetron 4 MG/2 ML SDV IVPUSH PRN (20:41)
[2019-04-15] MEDS ORDERED: diphenhydrAMINE 25 MG Cap PO PRN (20:41)
[2019-04-15] MEDS ORDERED: Naloxone 0.4 MG/ML Syringe IVPUSH PRN (20:41)
[2019-04-15] MEDS ORDERED: Pantoprazole 40 MG Vial IV SCH (21:00)
[2019-04-15] MEDS: Pantoprazole 40 MG in Sodium Chloride 0.9% 10 ML IV SCH (21:32)
[2019-04-15] MEDS: Morphine PF 30 MG/30 ML PCA Vial IV SCH (22:41)
[2019-04-16] MEDS ORDERED: Magnesium Sulfate/Water 2 GM in Premix Bag 1 BAG IV ONE (03:36)
[2019-04-16] MEDS: Sodium Chloride 0.9% 1,000 ML IV SCH ×3 (04:32→20:31)
[2019-04-16] MEDS: Morphine PF 30 MG/30 ML PCA Vial IV SCH (05:50)
[2019-04-16 06:44] LABS: CARBON DIOXIDE,CO2 28.5 mmol/L (21.0-32.0)
[2019-04-16] MEDS: Finasteride 5 MG Tab PO SCH (08:06)
[2019-04-16] MEDS: amLODIPine 5 MG Tab PO SCH (08:06)
[2019-04-16] MEDS: Docusate Sodium 100 MG Cap PO SCH (08:06)
[2019-04-16] MEDS: Rosuvastatin 10 MG Tab PO SCH (08:08)
[2019-04-16] MEDS: Pantoprazole 40 MG in Sodium Chloride 0.9% 10 ML IV SCH ×2 (08:10→20:32)
--- NOTE | 2019-04-16 11:26 | PCM.SN ---
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 MINESWEEPING OFFICER stopped. Plan left SALUD tomorrow morning at 8:30 AM. Consent completed. NPO after midnight. Recommend Vitamin K 100 micrograms IV this evening and STAT INR at 6:00 AM tomorrow morning. Discussed with Dr. Yoo yesterday. Roldan and Zara called and aware of case tomorrow for implants.
--- NOTE | 2019-04-16 12:37 | PCM.PN ---
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 Functional Status: Reports: Pain Controlled - Review of Systems General: Reports: Malaise. Denies: Fever, Weakness, Fatigue Pulmonary: Denies: Shortness of Breath, Pleuritic Chest Pain Cardiovascular: Denies: Chest Pain, Palpitations Gastrointestinal: Denies: Abdominal Pain, Constipation Genitourinary: Denies: Dysuria, Frequency, Burning Musculoskeletal: Reports: Leg Pain, Joint Pain. Denies: Neck Pain, Shoulder Pain, Arm Pain Neurological: Reports: Difficulty Walking - Patient Data Vitals - Most Recent: Last Vital Signs Temp 36.8 C 04/16/19 08:00 Pulse 83 04/16/19 08:00 Resp 12 04/16/19 08:00 BP 134/75 04/16/19 08:06 Pulse Ox 95 04/16/19 08:00 Weight - Most Recent: 9.979 kg I&O - Last 24 Hours: Intake & Output 04/15/19 04/16/19 04/16/19 22:59 06:59 14:59 Intake Total 1590 Output Total 1150 Balance 440 Lab Results Last 24 Hours: Laboratory Results - last 24 hr 04/15/19 04/15/19 04/15/19 Range/Units 00:00 14:19 14:19 WBC 7.88 (4.0-11.0) K/uL RBC 5.43 (4.50-5.90) M/uL Hgb 15.9 (13.0-17.0) g/dL Hct 47.1 (38.0-50.0) % MCV 86.7 (80.0-98.0) fL MCH 29.3 (27.0-32.0) pg MCHC 33.8 (31.0-37.0) g/dL RDW Std Deviation 48.1 (28.0-62.0) fl RDW Coeff of Marilee 15 (11.0-15.0) % Plt Count 243 (150-400) K/uL MPV 10.50 (7.40-12.00) fL Neut % (Auto) 84.7 H (48.0-80.0) % Lymph % (Auto) 6.9 L (16.0-40.0) % [place] % (Auto) 6.0 (0.0-15.0) % Eos % (Auto) 1.9 (0.0-7.0) % Baso % (Auto) 0.5 (0.0-1.5) % Neut # (Auto) 6.7 H (1.4-5.7) K/uL Lymph # (Auto) 0.5 L (0.6-2.4) K/uL [place] # (Auto) 0.5 (0.0-0.8) K/uL Eos # (Auto) 0.2 (0.0-0.7) K/uL Baso # (Auto) 0.0 (0.0-0.1) K/uL Nucleated RBC % 0.0 /100WBC Nucleated RBCs # 0 K/uL INR APTT (18.6-31.3) SEC Sodium 140 (136-148) mmol/L Potassium 5.1 (3.5-5.1) mmol/L Chloride 106 (98-107) mmol/L Carbon Dioxide 26.9 (21.0-32.0) mmol/L BUN 23 H (7.0-18.0) mg/dL Creatinine 1.3 (0.8-1.3) mg/dL Est Cr Clr Drug Dosing 8.21 mL/min Estimated GFR (MDRD) 55.8 ml/min Glucose 144 H (74-106) mg/dL Calcium 8.7 (8.5-10.1) mg/dL Phosphorus (2.6-4.7) mg/dL Magnesium 1.9 (1.8-2.4) mg/dL Total Bilirubin 0.3 (0.2-1.0) mg/dL AST 18 (15-37) IU/L ALT 32 (14-63) IU/L Alkaline Phosphatase 74 (46-116) U/L Troponin I (0.000-0.056) ng/mL B-Natriuretic Peptide (<100) PG/ML Total Protein 7.2 (6.4-8.2) g/dL Albumin 3.6 (3.4-5.0) g/dL Globulin 3.6 (2.6-4.0) g/dL Albumin/Globulin Ratio 1.0 (0.9-1.6) TSH 3rd Generation (0.36-3.74) uIU/mL Urine Color Urine Appearance Urine pH (5.0-8.0) Ur Specific [place] (1.001-1.035) Urine Protein (NEGATIVE) mg/dL Urine Glucose (UA) (NEGATIVE) mg/dL Urine Ketones (NEGATIVE) mg/dL Urine Occult Blood (NEGATIVE) Urine Nitrite (NEGATIVE) Urine Bilirubin (NEGATIVE) Urine Urobilinogen (<2.0) EU/dL Ur Leukocyte Esterase (NEGATIVE) Urine RBC (0-2/HPF) Urine WBC (0-5/HPF) Ur Epithelial Cells (NONE-FEW) Urine Bacteria (NEGATIVE) 04/15/19 04/15/19 04/15/19 Range/Units 14:19 14:19 14:19 WBC (4.0-11.0) K/uL RBC (4.50-5.90) M/uL Hgb (13.0-17.0) g/dL Hct (38.0-50.0) % MCV (80.0-98.0) fL MCH (27.0-32.0) pg MCHC (31.0-37.0) g/dL RDW Std Deviation (28.0-62.0) fl RDW Coeff of Marilee (11.0-15.0) % Plt Count (150-400) K/uL MPV (7.40-12.00) fL Neut % (Auto) (48.0-80.0) % Lymph % (Auto) (16.0-40.0) % [place] % (Auto) (0.0-15.0) % Eos % (Auto) (0.0-7.0) % Baso % (Auto) (0.0-1.5) % Neut # (Auto) (1.4-5.7) K/uL Lymph # (Auto) (0.6-2.4) K/uL [place] # (Auto) (0.0-0.8) K/uL Eos # (Auto) (0.0-0.7) K/uL Baso # (Auto) (0.0-0.1) K/uL Nucleated RBC % /100WBC Nucleated RBCs # K/uL INR 1.88 APTT 30.3 (18.6-31.3) SEC Sodium (136-148) mmol/L Potassium (3.5-5.1) mmol/L Chloride (98-107) mmol/L Carbon Dioxide (21.0-32.0) mmol/L BUN (7.0-18.0) mg/dL Creatinine (0.8-1.3) mg/dL Est Cr Clr Drug Dosing mL/min Estimated GFR (MDRD) ml/min Glucose (74-106) mg/dL Calcium (8.5-10.1) mg/dL Phosphorus (2.6-4.7) mg/dL Magnesium (1.8-2.4) mg/dL Total Bilirubin (0.2-1.0) mg/dL AST (15-37) IU/L ALT (14-63) IU/L Alkaline Phosphatase (46-116) U/L Troponin I < 0.050 (0.000-0.056) ng/mL B-Natriuretic Peptide (<100) PG/ML Total Protein (6.4-8.2) g/dL Albumin (3.4-5.0) g/dL Globulin (2.6-4.0) g/dL Albumin/Globulin Ratio (0.9-1.6) TSH 3rd Generation 1.77 (0.36-3.74) uIU/mL Urine Color Urine Appearance Urine pH (5.0-8.0) Ur Specific [place] (1.001-1.035) Urine Protein (NEGATIVE) mg/dL Urine Glucose (UA) (NEGATIVE) mg/dL Urine Ketones (NEGATIVE) mg/dL Urine Occult Blood (NEGATIVE) Urine Nitrite (NEGATIVE) Urine Bilirubin (NEGATIVE) Urine Urobilinogen (<2.0) EU/dL Ur Leukocyte Esterase (NEGATIVE) Urine RBC (0-2/HPF) Urine WBC (0-5/HPF) Ur Epithelial Cells (NONE-FEW) Urine Bacteria (NEGATIVE) 04/15/19 04/15/19 04/16/19 Range/Units 14:19 20:40 06:05 WBC 8.32 (4.0-11.0) K/uL RBC 5.10 (4.50-5.90) M/uL Hgb 14.7 (13.0-17.0) g/dL Hct 45.2 (38.0-50.0) % MCV 88.6 (80.0-98.0) fL MCH 28.8 (27.0-32.0) pg MCHC 32.5 (31.0-37.0) g/dL RDW Std Deviation 49.1 (28.0-62.0) fl RDW Coeff of Marilee 15 (11.0-15.0) % Plt Count 223 (150-400) K/uL MPV 10.10 (7.40-12.00) fL Neut % (Auto) 78.8 (48.0-80.0) % Lymph % (Auto) 9.7 L (16.0-40.0) % [place] % (Auto) 10.3 (0.0-15.0) % Eos % (Auto) 1.0 (0.0-7.0) % Baso % (Auto) 0.2 (0.0-1.5) % Neut # (Auto) 6.6 H (1.4-5.7) K/uL Lymph # (Auto) 0.8 (0.6-2.4) K/uL [place] # (Auto) 0.9 H (0.0-0.8) K/uL Eos # (Auto) 0.1 (0.0-0.7) K/uL Baso # (Auto) 0.0 (0.0-0.1) K/uL Nucleated RBC % 0.0 /100WBC Nucleated RBCs # 0 K/uL INR APTT (18.6-31.3) SEC Sodium (136-148) mmol/L Potassium (3.5-5.1) mmol/L Chloride (98-107) mmol/L Carbon Dioxide (21.0-32.0) mmol/L BUN (7.0-18.0) mg/dL Creatinine (0.8-1.3) mg/dL Est Cr Clr Drug Dosing mL/min Estimated GFR (MDRD) ml/min Glucose (74-106) mg/dL Calcium (8.5-10.1) mg/dL Phosphorus (2.6-4.7) mg/dL Magnesium (1.8-2.4) mg/dL Total Bilirubin (0.2-1.0) mg/dL AST (15-37) IU/L ALT (14-63) IU/L Alkaline Phosphatase (46-116) U/L Troponin I (0.000-0.056) ng/mL B-Natriuretic Peptide 32 (<100) PG/ML Total Protein (6.4-8.2) g/dL Albumin (3.4-5.0) g/dL Globulin (2.6-4.0) g/dL Albumin/Globulin Ratio (0.9-1.6) TSH 3rd Generation (0.36-3.74) uIU/mL Urine Color YELLOW Urine Appearance CLEAR Urine pH 5.0 (5.0-8.0) Ur Specific [place] >= 1.030 (1.001-1.035) Urine Protein TRACE H (NEGATIVE) mg/dL Urine Glucose (UA) NEGATIVE (NEGATIVE) mg/dL Urine Ketones NEGATIVE (NEGATIVE) mg/dL Urine Occult Blood SMALL H (NEGATIVE) Urine Nitrite NEGATIVE (NEGATIVE) Urine Bilirubin NEGATIVE (NEGATIVE) Urine Urobilinogen 0.2 (<2.0) EU/dL Ur Leukocyte Esterase NEGATIVE (NEGATIVE) Urine RBC 0-2 (0-2/HPF) Urine WBC 0-1 (0-5/HPF) Ur Epithelial Cells RARE (NONE-FEW) Urine Bacteria RARE (NEGATIVE) 04/16/19 Range/Units 06:05 WBC (4.0-11.0) K/uL RBC (4.50-5.90) M/uL Hgb (13.0-17.0) g/dL Hct (38.0-50.0) % MCV (80.0-98.0) fL MCH (27.0-32.0) pg MCHC (31.0-37.0) g/dL RDW Std Deviation (28.0-62.0) fl RDW Coeff of Marilee (11.0-15.0) % Plt Count (150-400) K/uL MPV (7.40-12.00) fL Neut % (Auto) (48.0-80.0) % Lymph % (Auto) (16.0-40.0) % [place] % (Auto) (0.0-15.0) % Eos % (Auto) (0.0-7.0) % Baso % (Auto) (0.0-1.5) % Neut # (Auto) (1.4-5.7) K/uL Lymph # (Auto) (0.6-2.4) K/uL [place] # (Auto) (0.0-0.8) K/uL Eos # (Auto) (0.0-0.7) K/uL Baso # (Auto) (0.0-0.1) K/uL Nucleated RBC % /100WBC Nucleated RBCs # K/uL INR APTT (18.6-31.3) SEC Sodium 140 (136-148) mmol/L Potassium 4.0 (3.5-5.1) mmol/L Chloride 105 (98-107) mmol/L Carbon Dioxide 28.5 (21.0-32.0) mmol/L BUN 19 H (7.0-18.0) mg/dL Creatinine 1.3 (0.8-1.3) mg/dL Est Cr Clr Drug Dosing 8.21 mL/min Estimated GFR (MDRD) 55.8 ml/min Glucose 128 H (74-106) mg/dL Calcium 7.9 L (8.5-10.1) mg/dL Phosphorus 3.7 (2.6-4.7) mg/dL Magnesium 2.5 H (1.8-2.4) mg/dL Total Bilirubin (0.2-1.0) mg/dL AST (15-37) IU/L ALT (14-63) IU/L Alkaline Phosphatase (46-116) U/L Troponin I (0.000-0.056) ng/mL B-Natriuretic Peptide (<100) PG/ML Total Protein (6.4-8.2) g/dL Albumin (3.4-5.0) g/dL Globulin (2.6-4.0) g/dL Albumin/Globulin Ratio (0.9-1.6) TSH 3rd Generation (0.36-3.74) uIU/mL Urine Color Urine Appearance Urine pH (5.0-8.0) Ur Specific [place] (1.001-1.035) Urine Protein (NEGATIVE) mg/dL Urine Glucose (UA) (NEGATIVE) mg/dL Urine Ketones (NEGATIVE) mg/dL Urine Occult Blood (NEGATIVE) Urine Nitrite (NEGATIVE) Urine Bilirubin (NEGATIVE) Urine Urobilinogen (<2.0) EU/dL Ur Leukocyte Esterase (NEGATIVE) Urine RBC (0-2/HPF) Urine WBC (0-5/HPF) Ur Epithelial Cells (NONE-FEW) Urine Bacteria (NEGATIVE) Med Orders - Current: Current Medications Albuterol/Ipratropium (Duoneb 3.0-0.5 Mg/3 Ml) 3 ml NEB Q4HRRT PRN PRN Reason: Shortness Of Breath/wheezing Amlodipine Besylate (Norvasc) 10 mg PO DAILY [facility] Last Admin: 04/16/19 08:06 Dose: 10 mg Diphenhydramine HCl (Benadryl) 25 mg IVPUSH Q6H PRN PRN Reason: Itching Diphenhydramine HCl (Benadryl) 25 mg PO Q6H PRN PRN Reason: Itching Docusate Sodium (Colace) 100 mg PO DAILY [facility] Last Admin: 04/16/19 08:06 Dose: 100 mg Finasteride (Proscar) 5 mg PO DAILY [facility] Last Admin: 04/16/19 08:06 Dose: 5 mg Sodium Chloride (Normal Saline) 1,000 mls @ 125 mls/hr IV ASDIRECTED [facility] Last Admin: 04/16/19 12:29 Dose: 125 mls/hr Pantoprazole Sodium 40 mg/ (Sodium Chloride) 10 mls @ 300 mls/hr IV Q12HR [facility] Last Admin: 04/16/19 08:10 Dose: 300 mls/hr Cefazolin Sodium/Dextrose 2 gm (/ Premix) 50 mls @ 100 mls/hr IV ONETIME ONE Stop: 04/17/19 08:59 Morphine Sulfate (Morphine Class A Truck Driver 30 Mg In 30 Ml) 0 mg IV ASDIRECTED [facility]; Protocol Last Admin: 04/16/19 05:50 Dose: 30 mg Naloxone HCl (Narcan) 0.04 mg IVPUSH Q3M PRN PRN Reason: Respiratory Depression Ondansetron HCl (Zofran) 4 mg IVPUSH Q6H PRN PRN Reason: Nausea/Vomiting Rosuvastatin Calcium (Crestor) 5 mg PO DAILY [facility] Last Admin: 04/16/19 08:08 Dose: 5 mg Discontinued Medications Bupivacaine HCl (Sensorcaine-Mpf 0.5%) Confirm Administered Dose 10 ml .ROUTE .STK-MED ONE Stop: 04/15/19 17:46 Bupivacaine HCl (Marcaine 0.5%) Confirm Administered Dose 30 ml .ROUTE .STK-MED ONE Stop: 04/15/19 17:49 Fentanyl (Fentanyl) 50 mcg IVPUSH ONETIME ONE Stop: 04/15/19 16:11 Last Admin: 04/15/19 16:25 Dose: 50 mcg Fentanyl (Sublimaze) Confirm Administered Dose 100 mcg .ROUTE .STK-MED ONE Stop: 04/15/19 16:17 Last Admin: 04/15/19 16:27 Dose: Not Given Hydromorphone HCl (Dilaudid) 1 mg IVPUSH ONETIME ONE Stop: 04/15/19 17:41 Last Admin: 04/15/19 17:49 Dose: 1 mg Magnesium Sulfate 2 gm/ Premix 50 mls @ 50 mls/hr IV ONETIME ONE Stop: 04/16/19 04:35 Last Admin: 04/16/19 04:35 Dose: 50 mls/hr Lidocaine HCl (Xylocaine 1%) Confirm Administered Dose 20 ml .ROUTE .STK-MED ONE Stop: 04/15/19 17:46 Morphine Sulfate (Morphine) 4 mg IVPUSH ONETIME ONE Stop: 04/15/19 14:31 Last Admin: 04/15/19 14:44 Dose: 4 mg Morphine Sulfate (Morphine) 2 mg IVPUSH Q4H PRN PRN Reason: Pain (severe 7-10) Stop: 04/16/19 16:52 Last Admin: 04/15/19 19:59 Dose: 2 mg Ondansetron HCl (Zofran) 4 mg IVPUSH ONETIME ONE Stop: 04/15/19 14:31 Last Admin: 04/15/19 14:40 Dose: 4 mg - Exam Quality Assessment: Supplemental Oxygen General: Alert, Moderate Distress, Lethargic Neck: Supple, Trachea Midline Lungs: Clear to Auscultation, Normal Respiratory Effort Cardiovascular: Regular Rate, Regular Rhythm GI/Abdominal Exam: Normal Bowel Sounds, Soft, Non-Tender Extremities: Joint Swelling, Limited Range of Motion, Increased Warmth. No: Normal Range of Motion, Pedal Edema Skin: Dry, Intact Psy/Mental Status: Alert, Normal Affect, Normal Mood Sepsis Event Note - Evaluation Sepsis Screening Result: No Definite Risk - Focused Exam Vital Signs: Vital Signs Temp Pulse Resp BP BP Pulse Ox 04/16/19 08:06 134/75 04/16/19 08:00 36.8 C 83 12 134/75 95 04/16/19 03:15 36.9 C 65 17 137/76 93 L Date Exam was Performed: 04/16/19 Time Exam was Performed: 12:33 - Problem List & Annotations (1) Subcapital fracture of neck of left femur SNOMED Code(s): 659951604 Code(s): S72.012A - UNSP INTRACAPSULAR FRACTURE OF LEFT FEMUR, INIT FOR CLOS FX Status: Acute Current Visit: Yes Qualifiers: Encounter type: initial encounter Fracture type: closed Qualified Code(s) : S72.012A - Unspecified intracapsular fracture of left femur, initial encounter for closed fracture (2) Hematoma SNOMED Code(s): 199500775 Code(s): T14.8XXA - OTHER INJURY OF UNSPECIFIED BODY REGION, INITIAL ENCOUNTER Status: Acute Current Visit: No (3) Chronic anticoagulation SNOMED Code(s): 146739451 Code(s): Z79.01 - NURSING HOME (CURRENT) USE OF ANTICOAGULANTS Status: Chronic Current Visit: No (4) Dyslipidemia SNOMED Code(s): 048656843 Code(s): E78.5 - HYPERLIPIDEMIA, UNSPECIFIED Status: Chronic Current Visit: No (5) HTN (hypertension) SNOMED Code(s): 72886128 Code(s): I10 - ESSENTIAL (PRIMARY) HYPERTENSION Status: Chronic Current Visit: No Qualifiers: Hypertension type: essential hypertension Qualified Code(s): I10 - Essential (primary) hypertension - Problem List Review Problem List Initiated/Reviewed/Updated: Yes - My Orders Last 24 Hours: My Active Orders 04/15/19 16:50 Oxygen Therapy [RC] PRN Urinary Catheter Assessment [RC] Q4H VTE/DVT Education [RC] PER UNIT ROUTINE Vital Signs [RC] Q4H Albuterol/Ipratropium [DuoNeb 3.0-0.5 MG/3 ML] 3 ml NEB Q4HRRT PRN 04/15/19 16:51 Pulse Oximetry [RC] PRN Sequential Compression Device [OM.PC] Per Unit Routine 04/15/19 16:52 Antiembolic Devices [RC] PER UNIT ROUTINE 04/15/19 16:53 RT Aerosol Therapy [RC] ASDIRECTED 04/15/19 17:00 Sodium Chloride 0.9% [Normal Saline] 1,000 ml IV ASDIRECTED 04/15/19 17:19 Telemetry Monitoring [Cardiac Monitoring] [RC] Q8H 04/15/19 20:41 Naloxone [Narcan] 0.04 mg IVPUSH Q3M PRN Ondansetron [Zofran] 4 mg IVPUSH Q6H PRN diphenhydrAMINE [Benadryl] 25 mg IVPUSH Q6H PRN diphenhydrAMINE [Benadryl] 25 mg PO Q6H PRN 04/15/19 20:45 Morphine PF [Morphine TEACHING SUPERVISOR 30 MG in 30 ML] See Protocol IV ASDIRECTED 04/15/19 20:46 Communication Order [RC] PER UNIT ROUTINE TEACHING SUPERVISOR Record [RC] Q4H Vital Signs [RC] PER UNIT ROUTINE Pulse Oximetry Continuous Monitoring [OM.PC] Routine 04/15/19 21:00 Pantoprazole [ProTONIX IV] 40 mg Sodium Chloride 0.9% [Normal Saline] 10 ml IV Q12HR 04/15/19 Dinner Heart Healthy Diet [DIET] 04/16/19 09:00 Docusate Sodium [Colace] 100 mg PO DAILY Finasteride [Proscar] 5 mg PO DAILY Rosuvastatin [Crestor] 5 mg PO DAILY amLODIPine [Norvasc] 10 mg PO DAILY 04/16/19 12:18 INR,PT,PROTHROMBIN TIME [COAG] Stat - Plan Plan:: A/P: 64 y/o M admitted for left femoral fracture On Coumadin, ortho recommenced holding surgery till Wednesday WEED CONTROLLER assessed patient at bedside for pre-op evaluation , requesting records from his vascular surgeon, so far unable to obtain records due to weekend schedule, will follow up CXR noted, EKG noted Will hold Coumadin for now, Hb stable SCD for DVT ppx s/p nerve block in ER by WEED CONTROLLER Pain control as needed with Morphine, dc TEACHING SUPERVISOR pump for now IV PPI Resume antihypertensive Will insert Agrawal Monitor ins and outs Monitor and replete electrolytes Check INR today may need reversal with Vit K if INR>1.5
[2019-04-16] MEDS ORDERED: Naloxone 0.4 MG/ML Syringe IVPUSH PRN (15:44)
[2019-04-16] MEDS ORDERED: diphenhydrAMINE 50 MG/ML SDV IVPUSH PRN (15:44)
[2019-04-16] MEDS ORDERED: Ondansetron 4 MG/2 ML SDV IVPUSH PRN (15:44)
[2019-04-16] MEDS ORDERED: diphenhydrAMINE 25 MG Cap PO PRN (15:44)
[2019-04-16] MEDS ORDERED: Morphine PF 30 MG/30 ML PCA Vial IV SCH (15:45)
[2019-04-17] MEDS: Sodium Chloride 0.9% 1,000 ML IV SCH ×2 (04:21→12:46)
[2019-04-17 06:39] LABS: BLOOD UREA NITROGEN,BUN 14 mg/dL (7.0-18.0); CARBON DIOXIDE,CO2 28.2 mmol/L (21.0-32.0); CHLORIDE,CL 104 mmol/L (98-107); GLUCOSE RANDOM 126 mg/dL (74-106); POTASSIUM,K 3.8 mmol/L (3.5-5.1); SODIUM,NA 141 mmol/L (136-148)
--- NOTE | 2019-04-17 07:43 | PCM.PREANE ---
Preanesthetic Assessment - Anesthesia/Transfusion/Family Hx Anesthesia History: Prior Anesthesia Without Reaction Family History of Anesthesia Reaction: No Transfusion History: No Prior Transfusion(s) Intubation History: Unknown - Review of Systems General: No Symptoms Pulmonary: No Symptoms Cardiovascular: No Symptoms Gastrointestinal: No Symptoms Neurological: No Symptoms Other: Reports: None - Physical Assessment Vital Signs: Last Vital Signs Temp 36.3 C 04/17/19 03:58 Pulse 71 04/17/19 03:58 Resp 18 04/17/19 03:58 BP 158/71 H 04/17/19 03:58 Pulse Ox 95 04/17/19 03:58 Height: 5 ft 11 in Weight: 99.79 kg ASA Class: 3 Mental Status: Alert & Oriented x3 Airway Class: Mallampati = 3 Dentition: Reports: Normal Dentition, Partial (lower front) Thyro-Mental Finger Breadths: 3 Mouth Opening Finger Breadths: 2 ROM/Head Extension: Full Lungs: Clear to Auscultation, Normal Respiratory Effort Cardiovascular: Regular Rate, Regular Rhythm - Lab Values: Laboratory Last Values WBC 8.08 K/uL (4.0-11.0) 04/17/19 06:05 RBC 4.98 M/uL (4.50-5.90) 04/17/19 06:05 Hgb 14.5 g/dL (13.0-17.0) 04/17/19 06:05 Hct 43.4 % (38.0-50.0) 04/17/19 06:05 MCV 87.1 fL (80.0-98.0) 04/17/19 06:05 MCH 29.1 pg (27.0-32.0) 04/17/19 06:05 MCHC 33.4 g/dL (31.0-37.0) 04/17/19 06:05 RDW Std Deviation 47.0 fl (28.0-62.0) 04/17/19 06:05 RDW Coeff of Marilee 15 % (11.0-15.0) 04/17/19 06:05 Plt Count 219 K/uL (150-400) 04/17/19 06:05 MPV 10.00 fL (7.40-12.00) 04/17/19 06:05 Neut % (Auto) 78.3 % (48.0-80.0) 04/17/19 06:05 Lymph % (Auto) 9.2 % (16.0-40.0) L 04/17/19 06:05 [place] % (Auto) 11.0 % (0.0-15.0) 04/17/19 06:05 Eos % (Auto) 1.4 % (0.0-7.0) 04/17/19 06:05 Baso % (Auto) 0.1 % (0.0-1.5) 04/17/19 06:05 Neut # (Auto) 6.3 K/uL (1.4-5.7) H 04/17/19 06:05 Lymph # (Auto) 0.7 K/uL (0.6-2.4) 04/17/19 06:05 [place] # (Auto) 0.9 K/uL (0.0-0.8) H 04/17/19 06:05 Eos # (Auto) 0.1 K/uL (0.0-0.7) 04/17/19 06:05 Baso # (Auto) 0.0 K/uL (0.0-0.1) 04/17/19 06:05 Nucleated RBC % 0.0 /100WBC 04/17/19 06:05 Nucleated RBCs # 0 K/uL 04/17/19 06:05 INR 1.14 04/17/19 06:05 APTT 30.3 SEC (18.6-31.3) 04/15/19 14:19 Sodium 141 mmol/L (136-148) 04/17/19 06:05 Potassium 3.8 mmol/L (3.5-5.1) 04/17/19 06:05 Chloride 104 mmol/L (98-107) 04/17/19 06:05 Carbon Dioxide 28.2 mmol/L (21.0-32.0) 04/17/19 06:05 BUN 14 mg/dL (7.0-18.0) 04/17/19 06:05 Creatinine 1.1 mg/dL (0.8-1.3) 04/17/19 06:05 Est Cr Clr Drug Dosing 73.21 mL/min 04/17/19 06:05 Estimated GFR (MDRD) > 60.0 ml/min 04/17/19 06:05 Glucose 126 mg/dL (74-106) H 04/17/19 06:05 Calcium 8.5 mg/dL (8.5-10.1) 04/17/19 06:05 Phosphorus 2.5 mg/dL (2.6-4.7) L 04/17/19 06:05 Magnesium 1.9 mg/dL (1.8-2.4) 04/17/19 06:05 Total Bilirubin 0.3 mg/dL (0.2-1.0) 04/15/19 14:19 AST 18 IU/L (15-37) 04/15/19 14:19 ALT 32 IU/L (14-63) 04/15/19 14:19 Alkaline Phosphatase 74 U/L (46-116) 04/15/19 14:19 Troponin I < 0.050 ng/mL (0.000-0.056) 04/15/19 14:19 B-Natriuretic Peptide 32 PG/ML (<100) 04/15/19 14:19 Total Protein 7.2 g/dL (6.4-8.2) 04/15/19 14:19 Albumin 3.6 g/dL (3.4-5.0) 04/15/19 14:19 Globulin 3.6 g/dL (2.6-4.0) 04/15/19 14:19 Albumin/Globulin Ratio 1.0 (0.9-1.6) 04/15/19 14:19 TSH 3rd Generation 1.77 uIU/mL (0.36-3.74) 04/15/19 14:19 Urine Color YELLOW 04/15/19 20:40 Urine Appearance CLEAR 04/15/19 20:40 Urine pH 5.0 (5.0-8.0) 04/15/19 20:40 Ur Specific [place] >= 1.030 (1.001-1.035) 04/15/19 20:40 Urine Protein TRACE mg/dL (NEGATIVE) H 04/15/19 20:40 Urine Glucose (UA) NEGATIVE mg/dL (NEGATIVE) 04/15/19 20:40 Urine Ketones NEGATIVE mg/dL (NEGATIVE) 04/15/19 20:40 Urine Occult Blood SMALL (NEGATIVE) H 04/15/19 20:40 Urine Nitrite NEGATIVE (NEGATIVE) 04/15/19 20:40 Urine Bilirubin NEGATIVE (NEGATIVE) 04/15/19 20:40 Urine Urobilinogen 0.2 EU/dL (<2.0) 04/15/19 20:40 Ur Leukocyte Esterase NEGATIVE (NEGATIVE) 04/15/19 20:40 Urine RBC 0-2 (0-2/HPF) 04/15/19 20:40 Urine WBC 0-1 (0-5/HPF) 04/15/19 20:40 Ur Epithelial Cells RARE (NONE-FEW) 04/15/19 20:40 Urine Bacteria RARE (NEGATIVE) 04/15/19 20:40 - Allergies Allergies/Adverse Reactions: Allergies Allergy/AdvReac Type Severity Reaction Status Date / Time propoxyphene [From Darvon] Allergy Nausea Verified 04/15/19 20:17 - Blood Blood Available: No - Anesthesia Plan Pre-Op Medication Ordered: None - Acknowledgements Anesthesia Type Planned: Spinal (general anesthesia back-up ) Pt an Appropriate Candidate for the Planned Anesthesia: Yes Alternatives and Risks of Anesthesia Discussed w Pt/Guardian: Yes Pt/Guardian Understands and Agrees with Anesthesia Plan: Yes PreAnesthesia Questionnaire Cardiovascular History: Reports: Blood Clots/VTE/DVT, High Cholesterol, Hypertension, PVD (femoral bypass in 2007, with L common iliac arterty stenting. ), Stents Other Cardiovascular History: Arterial procedure in Left leg per PT Respiratory History: Reports: None. Denies: Asthma, COPD Gastrointestinal History: Reports: None. Denies: GERD, GI Bleed Genitourinary History: Reports: None. Denies: Chronic Renal Insuffiency Musculoskeletal History: Reports: Fracture (left hip fx. at present time) Other Musculoskeletal History: left leg arterial procedure per PT Neurological History: Reports: None. Denies: CVA, TIA Psychiatric History: Reports: None Endocrine/Metabolic History: Reports: Obesity/BMI 30+. Denies: Diabetes, Type II - Infectious Disease History Infectious Disease History: Reports: Chicken Pox, Measles, Mumps - Past Surgical History Cardiovascular Surgical History: Reports: Vascular Surgery (femoral bypass with left common iliac arterty stenting to) - SUBSTANCE USE Smoking Status *Q: Former Smoker Tobacco Use Within Last Twelve Months: Cigarettes Second Hand Smoke Exposure: No Recreational Drug Use History: No - HOME MEDS Home Medications: Home Meds Warfarin [Coumadin] 10 mg PO ASDIRECTED 12/04/18 [History] Doxazosin [Cardura] 8 mg PO BEDTIME 12/05/18 [History] Finasteride 5 mg PO DAILY 12/05/18 [History] Lansoprazole [Prevacid] 30 mg PO DAILY 12/05/18 [History] Rosuvastatin Calcium 5 mg PO DAILY 12/05/18 [History] amLODIPine Besylate [Amlodipine Besylate] 10 mg PO DAILY 12/05/18 [History] Acetaminophen/HYDROcodone [[place] 325-10 MG] 1 - 2 tab PO Q6H PRN #40 tablet 04/26 [Rx] Docusate Sodium [Colace] 100 mg PO DAILY cap 12/07/18 [Rx] Fluticasone Propionate [Flonase] 1 spray NASBOTH DAILY bottle 12/07/18 [Rx] Loratadine [Claritin] 10 mg PO DAILY tablet 12/07/18 [Rx] - CURRENT (IN HOUSE) MEDS Current Meds: Current Medications Albuterol/Ipratropium (Duoneb 3.0-0.5 Mg/3 Ml) 3 ml NEB Q4HRRT PRN PRN Reason: Shortness Of Breath/wheezing Last Admin: 04/16/19 21:18 Dose: 3 ml Amlodipine Besylate (Norvasc) 10 mg PO DAILY [facility] Last Admin: 04/16/19 08:06 Dose: 10 mg Docusate Sodium (Colace) 100 mg PO DAILY [facility] Last Admin: 04/16/19 08:06 Dose: 100 mg Finasteride (Proscar) 5 mg PO DAILY [facility] Last Admin: 04/16/19 08:06 Dose: 5 mg Sodium Chloride (Normal Saline) 1,000 mls @ 125 mls/hr IV ASDIRECTED [facility] Last Admin: 04/17/19 04:21 Dose: 125 mls/hr Pantoprazole Sodium 40 mg/ (Sodium Chloride) 10 mls @ 300 mls/hr IV Q12HR [facility] Last Admin: 04/16/19 20:32 Dose: 300 mls/hr Cefazolin Sodium/Dextrose 2 gm (/ Premix) 50 mls @ 100 mls/hr IV ONETIME ONE Stop: 04/17/19 08:59 Morphine Sulfate (Morphine Human Resources Training Manager 30 Mg In 30 Ml) 0 mg IV ASDIRECTED [facility]; Protocol Last Admin: 04/17/19 05:15 Dose: 30 mg Naloxone HCl (Narcan) 0.04 mg IVPUSH Q3M PRN PRN Reason: Respiratory Depression Naloxone HCl (Narcan) 0.04 mg IVPUSH Q3M PRN PRN Reason: Respiratory Depression Ondansetron HCl (Zofran) 4 mg IVPUSH Q6H PRN PRN Reason: Nausea/Vomiting Ondansetron HCl (Zofran) 4 mg IVPUSH Q6H PRN PRN Reason: Nausea/Vomiting Rosuvastatin Calcium (Crestor) 5 mg PO DAILY [facility] Last Admin: 04/16/19 08:08 Dose: 5 mg Discontinued Medications Bupivacaine HCl (Sensorcaine-Mpf 0.5%) Confirm Administered Dose 10 ml .ROUTE .STK-MED ONE Stop: 04/15/19 17:46 Bupivacaine HCl (Marcaine 0.5%) Confirm Administered Dose 30 ml .ROUTE .STK-MED ONE Stop: 04/15/19 17:49 Diphenhydramine HCl (Benadryl) 25 mg IVPUSH Q6H PRN PRN Reason: Itching Diphenhydramine HCl (Benadryl) 25 mg PO Q6H PRN PRN Reason: Itching Diphenhydramine HCl (Benadryl) 25 mg IVPUSH Q6H PRN PRN Reason: Itching Diphenhydramine HCl (Benadryl) 25 mg PO Q6H PRN PRN Reason: Itching Fentanyl (Fentanyl) 50 mcg IVPUSH ONETIME ONE Stop: 04/15/19 16:11 Last Admin: 04/15/19 16:25 Dose: 50 mcg Fentanyl (Sublimaze) Confirm Administered Dose 100 mcg .ROUTE .STK-MED ONE Stop: 04/15/19 16:17 Last Admin: 04/15/19 16:27 Dose: Not Given Hydromorphone HCl (Dilaudid) 1 mg IVPUSH ONETIME ONE Stop: 04/15/19 17:41 Last Admin: 04/15/19 17:49 Dose: 1 mg Magnesium Sulfate 2 gm/ Premix 50 mls @ 50 mls/hr IV ONETIME ONE Stop: 04/16/19 04:35 Last Admin: 04/16/19 04:35 Dose: 50 mls/hr Lidocaine HCl (Xylocaine 1%) Confirm Administered Dose 20 ml .ROUTE .STK-MED ONE Stop: 04/15/19 17:46 Morphine Sulfate (Morphine) 4 mg IVPUSH ONETIME ONE Stop: 04/15/19 14:31 Last Admin: 04/15/19 14:44 Dose: 4 mg Morphine Sulfate (Morphine) 2 mg IVPUSH Q4H PRN PRN Reason: Pain (severe 7-10) Stop: 04/16/19 16:52 Last Admin: 04/15/19 19:59 Dose: 2 mg Morphine Sulfate (Morphine Human Resources Training Manager 30 Mg In 30 Ml) 0 mg IV ASDIRECTED [facility]; Protocol Last Admin: 04/16/19 05:50 Dose: 30 mg Ondansetron HCl (Zofran) 4 mg IVPUSH ONETIME ONE Stop: 04/15/19 14:31 Last Admin: 04/15/19 14:40 Dose: 4 mg
[2019-04-17] MEDS ORDERED: ceFAZolin 2 GM in Premix Bag 1 BAG IV ONE (08:30)
--- NOTE | 2019-04-17 09:45 | PCM.PN ---
- General Info Date of Service: 04/17/19 Admission Dx/Problem (Free Text): Admission Diagnosis/Problem Admission Diagnosis/Problem Subcapital fracture of left femur Subjective Update: Reports he is in pain this morning, mainly to L leg. No chest pain or SOB. No other concerns. Functional Status: Denies: Pain Controlled, Ambulating - Review of Systems General: Reports: No Symptoms. Denies: Fever, Fatigue, Malaise Pulmonary: Reports: No Symptoms. Denies: Shortness of Breath Cardiovascular: Reports: No Symptoms. Denies: Chest Pain Gastrointestinal: Reports: No Symptoms. Denies: Abdominal Pain, Nausea, Vomiting Genitourinary: Reports: No Symptoms Musculoskeletal: Reports: Leg Pain Skin: Reports: No Symptoms Neurological: Reports: No Symptoms Psychiatric: Reports: No Symptoms - Patient Data Vitals - Most Recent: Last Vital Signs Temp 98 F 04/17/19 08:00 Pulse 75 04/17/19 08:00 Resp 18 04/17/19 08:00 BP 170/59 H 04/17/19 08:00 Pulse Ox 95 04/17/19 08:00 Weight - Most Recent: 99.79 kg I&O - Last 24 Hours: Intake & Output 04/16/19 04/17/19 04/17/19 22:59 06:59 14:59 Intake Total 4175 1950 Output Total 1400 5550 Balance 2775 -3600 Lab Results Last 24 Hours: Laboratory Results - last 24 hr 04/16/19 04/17/19 04/17/19 Range/Units 12:53 06:05 06:05 WBC 8.08 (4.0-11.0) K/uL RBC 4.98 (4.50-5.90) M/uL Hgb 14.5 (13.0-17.0) g/dL Hct 43.4 (38.0-50.0) % MCV 87.1 (80.0-98.0) fL MCH 29.1 (27.0-32.0) pg MCHC 33.4 (31.0-37.0) g/dL RDW Std Deviation 47.0 (28.0-62.0) fl RDW Coeff of Marilee 15 (11.0-15.0) % Plt Count 219 (150-400) K/uL MPV 10.00 (7.40-12.00) fL Neut % (Auto) 78.3 (48.0-80.0) % Lymph % (Auto) 9.2 L (16.0-40.0) % [place] % (Auto) 11.0 (0.0-15.0) % Eos % (Auto) 1.4 (0.0-7.0) % Baso % (Auto) 0.1 (0.0-1.5) % Neut # (Auto) 6.3 H (1.4-5.7) K/uL Lymph # (Auto) 0.7 (0.6-2.4) K/uL [place] # (Auto) 0.9 H (0.0-0.8) K/uL Eos # (Auto) 0.1 (0.0-0.7) K/uL Baso # (Auto) 0.0 (0.0-0.1) K/uL Nucleated RBC % 0.0 /100WBC Nucleated RBCs # 0 K/uL INR 1.40 1.14 Sodium (136-148) mmol/L Potassium (3.5-5.1) mmol/L Chloride (98-107) mmol/L Carbon Dioxide (21.0-32.0) mmol/L BUN (7.0-18.0) mg/dL Creatinine (0.8-1.3) mg/dL Est Cr Clr Drug Dosing mL/min Estimated GFR (MDRD) ml/min Glucose (74-106) mg/dL Calcium (8.5-10.1) mg/dL Phosphorus (2.6-4.7) mg/dL Magnesium (1.8-2.4) mg/dL Blood Type Antibody Screen Crossmatch 04/17/19 04/17/19 Range/Units 06:05 07:06 WBC (4.0-11.0) K/uL RBC (4.50-5.90) M/uL Hgb (13.0-17.0) g/dL Hct (38.0-50.0) % MCV (80.0-98.0) fL MCH (27.0-32.0) pg MCHC (31.0-37.0) g/dL RDW Std Deviation (28.0-62.0) fl RDW Coeff of Marilee (11.0-15.0) % Plt Count (150-400) K/uL MPV (7.40-12.00) fL Neut % (Auto) (48.0-80.0) % Lymph % (Auto) (16.0-40.0) % [place] % (Auto) (0.0-15.0) % Eos % (Auto) (0.0-7.0) % Baso % (Auto) (0.0-1.5) % Neut # (Auto) (1.4-5.7) K/uL Lymph # (Auto) (0.6-2.4) K/uL [place] # (Auto) (0.0-0.8) K/uL Eos # (Auto) (0.0-0.7) K/uL Baso # (Auto) (0.0-0.1) K/uL Nucleated RBC % /100WBC Nucleated RBCs # K/uL INR Sodium 141 (136-148) mmol/L Potassium 3.8 (3.5-5.1) mmol/L Chloride 104 (98-107) mmol/L Carbon Dioxide 28.2 (21.0-32.0) mmol/L BUN 14 (7.0-18.0) mg/dL Creatinine 1.1 (0.8-1.3) mg/dL Est Cr Clr Drug Dosing 73.21 mL/min Estimated GFR (MDRD) > 60.0 ml/min Glucose 126 H (74-106) mg/dL Calcium 8.5 (8.5-10.1) mg/dL Phosphorus 2.5 L (2.6-4.7) mg/dL Magnesium 1.9 (1.8-2.4) mg/dL Blood Type B POSITIVE Antibody Screen NEGATIVE Crossmatch See Detail Med Orders - Current: Current Medications Albuterol/Ipratropium (Duoneb 3.0-0.5 Mg/3 Ml) 3 ml NEB Q4HRRT PRN PRN Reason: Shortness Of Breath/wheezing Last Admin: 04/16/19 21:18 Dose: 3 ml Amlodipine Besylate (Norvasc) 10 mg PO DAILY [facility] Last Admin: 04/16/19 08:06 Dose: 10 mg Docusate Sodium (Colace) 100 mg PO DAILY [facility] Last Admin: 04/16/19 08:06 Dose: 100 mg Finasteride (Proscar) 5 mg PO DAILY [facility] Last Admin: 04/16/19 08:06 Dose: 5 mg Sodium Chloride (Normal Saline) 1,000 mls @ 125 mls/hr IV ASDIRECTED [facility] Last Admin: 04/17/19 04:21 Dose: 125 mls/hr Pantoprazole Sodium 40 mg/ (Sodium Chloride) 10 mls @ 300 mls/hr IV Q12HR [facility] Last Admin: 04/16/19 20:32 Dose: 300 mls/hr Morphine Sulfate (Morphine Waste Water Worker 30 Mg In 30 Ml) 0 mg IV ASDIRECTED [facility]; Protocol Last Admin: 04/17/19 05:15 Dose: 30 mg Naloxone HCl (Narcan) 0.04 mg IVPUSH Q3M PRN PRN Reason: Respiratory Depression Naloxone HCl (Narcan) 0.04 mg IVPUSH Q3M PRN PRN Reason: Respiratory Depression Ondansetron HCl (Zofran) 4 mg IVPUSH Q6H PRN PRN Reason: Nausea/Vomiting Ondansetron HCl (Zofran) 4 mg IVPUSH Q6H PRN PRN Reason: Nausea/Vomiting Rosuvastatin Calcium (Crestor) 5 mg PO DAILY [facility] Last Admin: 04/16/19 08:08 Dose: 5 mg Discontinued Medications Bupivacaine HCl (Sensorcaine-Mpf 0.5%) Confirm Administered Dose 10 ml .ROUTE .STK-MED ONE Stop: 04/15/19 17:46 Bupivacaine HCl (Marcaine 0.5%) Confirm Administered Dose 30 ml .ROUTE .STK-MED ONE Stop: 04/15/19 17:49 Diphenhydramine HCl (Benadryl) 25 mg IVPUSH Q6H PRN PRN Reason: Itching Diphenhydramine HCl (Benadryl) 25 mg PO Q6H PRN PRN Reason: Itching Diphenhydramine HCl (Benadryl) 25 mg IVPUSH Q6H PRN PRN Reason: Itching Diphenhydramine HCl (Benadryl) 25 mg PO Q6H PRN PRN Reason: Itching Fentanyl (Fentanyl) 50 mcg IVPUSH ONETIME ONE Stop: 04/15/19 16:11 Last Admin: 04/15/19 16:25 Dose: 50 mcg Fentanyl (Sublimaze) Confirm Administered Dose 100 mcg .ROUTE .STK-MED ONE Stop: 04/15/19 16:17 Last Admin: 04/15/19 16:27 Dose: Not Given Hydromorphone HCl (Dilaudid) 1 mg IVPUSH ONETIME ONE Stop: 04/15/19 17:41 Last Admin: 04/15/19 17:49 Dose: 1 mg Magnesium Sulfate 2 gm/ Premix 50 mls @ 50 mls/hr IV ONETIME ONE Stop: 04/16/19 04:35 Last Admin: 04/16/19 04:35 Dose: 50 mls/hr Cefazolin Sodium/Dextrose 2 gm (/ Premix) 50 mls @ 100 mls/hr IV ONETIME ONE Stop: 04/17/19 08:59 Last Admin: 04/17/19 08:35 Dose: 100 mls/hr Lidocaine HCl (Xylocaine 1%) Confirm Administered Dose 20 ml .ROUTE .STK-MED ONE Stop: 04/15/19 17:46 Morphine Sulfate (Morphine) 4 mg IVPUSH ONETIME ONE Stop: 04/15/19 14:31 Last Admin: 04/15/19 14:44 Dose: 4 mg Morphine Sulfate (Morphine) 2 mg IVPUSH Q4H PRN PRN Reason: Pain (severe 7-10) Stop: 04/16/19 16:52 Last Admin: 04/15/19 19:59 Dose: 2 mg Morphine Sulfate (Morphine Waste Water Worker 30 Mg In 30 Ml) 0 mg IV ASDIRECTED [facility]; Protocol Last Admin: 04/16/19 05:50 Dose: 30 mg Ondansetron HCl (Zofran) 4 mg IVPUSH ONETIME ONE Stop: 04/15/19 14:31 Last Admin: 04/15/19 14:40 Dose: 4 mg - Exam Quality Assessment: Supplemental Oxygen, DVT Prophylaxis (SCDs, Coumadin on hold ) General: Alert, Oriented Neck: Supple Lungs: Clear to Auscultation, Normal Respiratory Effort Cardiovascular: Regular Rate, Regular Rhythm GI/Abdominal Exam: Normal Bowel Sounds, Soft, Non-Tender Extremities: Normal Inspection, Normal Range of Motion, Non-Tender, No Pedal Edema Neurological: No New Focal Deficit Psy/Mental Status: Alert, Normal Affect, Normal Mood Sepsis Event Note - Evaluation Sepsis Screening Result: No Definite Risk - Focused Exam Vital Signs: Vital Signs Temp Pulse Resp BP Pulse Ox 04/17/19 08:00 98 F 75 18 170/59 H 95 04/17/19 03:58 97.4 F 71 18 158/71 H 95 04/16/19 23:28 99.5 F 78 15 163/76 H 95 Date Exam was Performed: 04/17/19 Time Exam was Performed: 11:16 - Problem List & Annotations (1) Subcapital fracture of neck of left femur SNOMED Code(s): 114387113 Code(s): S72.012A - UNSP INTRACAPSULAR FRACTURE OF LEFT FEMUR, INIT FOR CLOS FX Status: Acute Current Visit: Yes Qualifiers: Encounter type: initial encounter Fracture type: closed Qualified Code(s) : S72.012A - Unspecified intracapsular fracture of left femur, initial encounter for closed fracture (2) Chronic anticoagulation SNOMED Code(s): 628919433 Code(s): Z79.01 - [facility] (CURRENT) USE OF ANTICOAGULANTS Status: Chronic Current Visit: No (3) Dyslipidemia SNOMED Code(s): 639089073 Code(s): E78.5 - HYPERLIPIDEMIA, UNSPECIFIED Status: Chronic Current Visit: No (4) HTN (hypertension) SNOMED Code(s): 10023837 Code(s): I10 - ESSENTIAL (PRIMARY) HYPERTENSION Status: Chronic Current Visit: No Qualifiers: Hypertension type: essential hypertension Qualified Code(s): I10 - Essential (primary) hypertension (5) PAD (peripheral artery disease) SNOMED Code(s): 098440979 Code(s): I73.9 - PERIPHERAL VASCULAR DISEASE, UNSPECIFIED Status: Chronic Current Visit: No - Problem List Review Problem List Initiated/Reviewed/Updated: Yes - Plan Plan:: This 64 year old male admitted for left femoral fracture, has significant hx of PAD with grafting and stenting to lower extremities and on Coumadin for anticoagulation. 1. L femoral fracture: - Dr Galaviz consulted, Anesthesia evaluating for surgical intervention today. They consulted Dr Denton, Cardiology for further evaluation. ECHO pending. - INR 1.14. Continue to hold Coumadin. Hgb Stable. 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 HTN: Stable - Continue antihypertensive, Amlodipine. On telemetry. 3. PAD - Stable, Coumadin on hold due to upcoming surgery. VTE prophylaxis: SCDs, Coumadin on Hold. GI prophylaxis: Protonix IV Code status: FULL Code
[2019-04-17] MEDS: Pantoprazole 40 MG in Sodium Chloride 0.9% 10 ML IV SCH ×2 (10:17→20:48)
[2019-04-17] MEDS: Docusate Sodium 100 MG Cap PO SCH (11:12)
[2019-04-17] MEDS: amLODIPine 5 MG Tab PO SCH (11:13)
[2019-04-17] MEDS: Rosuvastatin 10 MG Tab PO SCH (11:13)
[2019-04-17] MEDS: Finasteride 5 MG Tab PO SCH (11:14)
[2019-04-17 12:04] LABS: HEMOGLOBIN A1C 6.6 % (4.5-6.2)
[2019-04-17] MEDS ORDERED: Ropivacaine 49.25 ML, Ketorolac 30 MG, EPINEPHrine 0.5 MG, cloNIDine 80 MCG in Sodium C... INJECT SCH (12:15)
[2019-04-17] MEDS ORDERED: fentaNYL 100 MCG/2 ML SDV ONE ×2 (12:25→13:21)
[2019-04-17] MEDS ORDERED: Propofol 200 MG/20 ML SDV ONE ×3 (12:25→14:09)
[2019-04-17] MEDS ORDERED: Midazolam 1 MG/ML 2 ML SDV ONE ×3 (12:25→16:27)
[2019-04-17] MEDS ORDERED: Phenylephrine 1% 10 MG/ML SDV ONE (12:25)
[2019-04-17] MEDS ORDERED: Tranexamic Acid 1,000 MG in Sodium Chloride 0.9% 100 ML IV ONE (13:00)
[2019-04-17] MEDS ORDERED: ceFAZolin/Dextrose,Iso-Osmotic 2 GM/50 ML Duplex Bag IV ONE (13:04)
[2019-04-17] MEDS ORDERED: Atropine 0.1 MG/ML 10 ML Syringe IVPUSH PRN ×2 (14:24)
[2019-04-17] MEDS ORDERED: 50% Dextrose in Water 50 ML Syringe IVPUSH PRN (14:24)
[2019-04-17] MEDS ORDERED: Naloxone 0.4 MG/ML Syringe IVPUSH PRN (14:24)
[2019-04-17] MEDS ORDERED: fentaNYL 100 MCG/2 ML SDV IVPUSH PRN (14:24)
[2019-04-17] MEDS ORDERED: Albuterol 0.083% 2.5 MG/3 ML Neb Soln NEB PRN (14:24)
[2019-04-17] MEDS ORDERED: EPINEPHrine 1:10,000 1 MG/10 ML Syringe IVPUSH PRN (14:24)
--- NOTE | 2019-04-17 14:31 | PCM.SN ---
- Free Text/Narrative Note: patient received sedation, and placed in left lateral decubitus position for spinal spinal was done with an aseptic technique, mask, sterile gloves and drapes used. back prepped with povidone iodine. 1% lidocaine 2 ml for skin infiltration. 2 attempts at l4-l5 with 25 gauge pencan needle. +csf. no heme. 2.0 ml of hyperbaric 0.75% bupivacaine at 1326. no paresthesias with injection. patient tolerated the procedure well and was able to talk throughout. T8 level.
[2019-04-17] MEDS ORDERED: Phenylephrine/Normal Saline 100 MCG/ML 10 ML Syringe ONE (14:40)
--- NOTE | 2019-04-17 16:19 | PCM.OPNOTE ---
- General Post-Op/Procedure Note Date of Surgery/Procedure: 04/17/19 Operative Procedure(s): Left total hip replacement with [employer]illa [employer] Nephew R3 acetabular components and Synergy porous femoral stem and Oxinium femoral head Findings: Left displaced femoral neck fracture Pre Op Diagnosis: Left displaced femoral neck fracture Post-Op Diagnosis: Left displaced femoral neck fracture Anesthesia Technique: Spinal Primary Surgeon: Doug Galaviz Glass Maker: Jinny Barbosa Glass Maker Was Necessary: Positioning and retraction EBL in mLs: 200 Complications: None Condition: Good Free Text/Narrative:: The risks and benefits of total hip replacement were discussed with the patient and his spouse. He was medically cleared for surgery. All questions answered. Patient consented to proceed with surgery. Patient was taken to the operating room. After spinal anesthetic, he was placed in a right lateral decubitus position, left side up. The left buttock hip thigh and lower extremity were prepped and draped in usual sterile manner. An incision was made over the greater trochanter laterally. Skin was incised with a scalpel. Subcutaneous tissue was incised electrocautery. The iliotibial band was split between fibers. The anterior third of the abductors were taken down and retracted anteriorly. A capsulotomy was performed with retraction sutures and the anterior and posterior limbs. Left tissue was dissected and the femoral neck brought into the incision. A femoral neck cut was made with an oscillating saw. The femoral head was removed with a corkscrew. The acetabulum was was exposed with retractors. The labrum was excised. Sequentially reamed up starting with 50 mm up to 56 mm to good bleeding bone. A 56 mm diameter 3-hole R3 acetabular component was impacted into appropriate position. 2 screws were placed. Local was replaced and the other 2 holes. A 20 cross-linked polyethylene acetabular liner was then inserted. The femur was reamed and broached to size 15. Trial reduction showed good stability. A Synergy size 15 porous coated femoral stem was impacted to the appropriate position. A +8 mm 36 mm diameter trial head was used and good stability and range of motion were noted. The trial head was removed and the +8 mm 36 mm diameter Oxinium metal head was impacted into position and the hip reduced. The capsulotomy was pared with interrupted [id number] #1 Vicryl sutures. The abductors were repaired back to the greater trochanter through bone tunnels with #5 Ethibond sutures. The iliotibial band was repaired with interrupted figure of 8 #1 Vicryl sutures. Local injections were performed with the standard injection solution site for postoperative pain control. The subcutaneous tissue was closed with interrupted 2-0 Vicryl suture. Skin was closed with running Monocryl suture. Steri-Strips and a sterile dressing were applied. The patient was accompanied to the recovery room in stable condition. Pain management: Celebrex 200 mg twice a day with no substitutions because patient is on warfarin and Vicodin Venous thromboembolism prophylaxis: Resume warfarin Prophylactic antibiotics: Ancef for 24 hours Restrictions: Patient is weightbearing as tolerated on his left lower extremity with no restrictions. Early mobilization with nursing and activities as tolerated. Intake & Output 04/17/19 04/17/19 04/17/19 06:59 14:59 22:59 Intake Total 1950 Output Total 5550 Balance -3600
[2019-04-17] MEDS ORDERED: Bisacodyl 10 MG Supp RECTAL PRN (16:34)
[2019-04-17] MEDS ORDERED: Sodium Chloride 0.9% 10 ML Syringe FLUSH PRN (16:34)
[2019-04-17] MEDS ORDERED: Sodium Chloride 0.9% 2.5 ML Syringe FLUSH PRN (16:34)
[2019-04-17] MEDS ORDERED: Docusate Sodium 100 MG Cap PO PRN (16:34)
[2019-04-17] MEDS ORDERED: diphenhydrAMINE 25 MG Cap PO PRN (16:34)
[2019-04-17] MEDS ORDERED: Aluminum Hydroxide/Magnesium Hydroxide/Simethicone Susp 30 ML Cup PO PRN (16:34)
[2019-04-17] MEDS: Insulin Aspart 100 Units/ML 3 ML Pen SUBCUT SCH (17:18)
--- NOTE | 2019-04-17 17:26 | PCM.POSTAN ---
POST ANESTHESIA ASSESSMENT - MENTAL STATUS Mental Status: Alert, Oriented - VITAL SIGNS Vital Signs: Last Vital Signs Temp 37.4 C 04/17/19 16:30 Pulse 78 04/17/19 17:10 Resp 12 04/17/19 17:05 BP 113/68 04/17/19 17:10 Pulse Ox 95 04/17/19 17:05 - RESPIRATORY Respiratory Status: Respiratory Rate WNL, Airway Patent, O2 Saturation Stable - CARDIOVASCULAR CV Status: Pulse Rate WNL, Blood Pressure Stable - GASTROINTESTINAL GI Status: No Symptoms - PAIN Pain Score: 0 - POST OP HYDRATION Hydration Status: Adequate & Stable - OBSERVATIONS Free Text/Narrative:: No anesthesia problems
--- NOTE | 2019-04-17 18:09 | CR ---
Left hip: AP view of the left hip was obtained. Left hip prosthesis is seen. Components are aligned. Soft tissue air is noted from the surgical procedure. No underlying bony abnormality is appreciated. Surgical clips are seen within the medial right thigh and medial left thigh. Impression: 1. Recently placed left hip prosthesis. 2. Other findings which are believed to be incidental. No acute bony finding is appreciated. Diagnostic code #2 This report was dictated in [place] Standard Time
[2019-04-17] MEDS: Acetaminophen/HYDROcodone 325-10 MG Tab PO PRN (18:27)
[2019-04-17] MEDS: Phosphorus #1 250 MG Tab PO SCH (18:28)
[2019-04-17] MEDS: Celecoxib 100 MG Cap PO SCH (20:52)
[2019-04-17] MEDS: ceFAZolin 2 GM in Premix Bag 1 BAG IV SCH (20:58)
[2019-04-17] MEDS ORDERED: Warfarin 10 MG Tab PO ONE (21:00)
[2019-04-17] MEDS: traMADol 50 MG Tab PO PRN (21:39)
[2019-04-18] MEDS: Phosphorus #1 250 MG Tab PO SCH ×4 (00:19→18:40)
[2019-04-18] MEDS: Acetaminophen/HYDROcodone 325-10 MG Tab PO PRN ×4 (00:19→17:43)
[2019-04-18] MEDS: traMADol 50 MG Tab PO PRN (03:57)
[2019-04-18] MEDS: ceFAZolin 2 GM in Premix Bag 1 BAG IV SCH (05:06)
[2019-04-18] MEDS: Ondansetron 4 MG/2 ML SDV IVPUSH PRN (05:36)
[2019-04-18 06:47] LABS: BLOOD UREA NITROGEN,BUN 17 mg/dL (7.0-18.0); CARBON DIOXIDE,CO2 29.4 mmol/L (21.0-32.0); CHLORIDE,CL 103 mmol/L (98-107); GLUCOSE RANDOM 153 mg/dL (74-106); POTASSIUM,K 3.8 mmol/L (3.5-5.1); SODIUM,NA 140 mmol/L (136-148)
[2019-04-18] MEDS: Insulin Aspart 100 Units/ML 3 ML Pen SUBCUT SCH ×3 (07:01→18:39)
[2019-04-18] MEDS ORDERED: Magnesium Sulfate/Water 2 GM in Premix Bag 1 BAG IV ONE (07:45)
--- NOTE | 2019-04-18 07:48 | PCM.PN ---
- General Info Date of Service: 04/18/19 Admission Dx/Problem (Free Text): Admission Diagnosis/Problem Admission Diagnosis/Problem Subcapital fracture of left femur Subjective Update: Reports pain is 8/10, but easily falls asleep during conversation. Reports pain is a dull pain to L leg. No calf tenderness or leg swelling. No chest pain or SOB. Nervous about getting up. Functional Status: Reports: Tolerating Diet. Denies: Ambulating - Review of Systems General: Reports: No Symptoms HEENT: Reports: No Symptoms Pulmonary: Reports: No Symptoms. Denies: Shortness of Breath Cardiovascular: Reports: No Symptoms. Denies: Chest Pain Gastrointestinal: Reports: No Symptoms. Denies: Abdominal Pain, Nausea, Vomiting Genitourinary: Reports: No Symptoms. Denies: Dysuria, Frequency Musculoskeletal: Reports: Leg Pain (left) Skin: Reports: No Symptoms Neurological: Reports: No Symptoms Psychiatric: Reports: No Symptoms - Patient Data Vitals - Most Recent: Last Vital Signs Temp 99.2 F 04/18/19 05:44 Pulse 76 04/18/19 03:45 Resp 18 04/18/19 03:45 BP 156/76 H 04/18/19 03:45 Pulse Ox 98 04/18/19 03:45 Weight - Most Recent: 99.79 kg I&O - Last 24 Hours: Intake & Output 04/17/19 04/18/19 04/18/19 22:59 06:59 14:59 Intake Total 2400 650 Output Total 200 1075 Balance 2200 -425 Lab Results Last 24 Hours: Laboratory Results - last 24 hr 04/17/19 04/17/19 04/17/19 Range/Units 06:05 07:06 17:55 WBC (4.0-11.0) K/uL RBC (4.50-5.90) M/uL Hgb (13.0-17.0) g/dL Hct (38.0-50.0) % MCV (80.0-98.0) fL MCH (27.0-32.0) pg MCHC (31.0-37.0) g/dL RDW Std Deviation (28.0-62.0) fl RDW Coeff of Marilee (11.0-15.0) % Plt Count (150-400) K/uL MPV (7.40-12.00) fL Neut % (Auto) (48.0-80.0) % Lymph % (Auto) (16.0-40.0) % Ferry % (Auto) (0.0-15.0) % Eos % (Auto) (0.0-7.0) % Baso % (Auto) (0.0-1.5) % Neut # (Auto) (1.4-5.7) K/uL Lymph # (Auto) (0.6-2.4) K/uL Ferry # (Auto) (0.0-0.8) K/uL Eos # (Auto) (0.0-0.7) K/uL Baso # (Auto) (0.0-0.1) K/uL Nucleated RBC % /100WBC Nucleated RBCs # K/uL INR 1.10 Sodium (136-148) mmol/L Potassium (3.5-5.1) mmol/L Chloride (98-107) mmol/L Carbon Dioxide (21.0-32.0) mmol/L BUN (7.0-18.0) mg/dL Creatinine (0.8-1.3) mg/dL Est Cr Clr Drug Dosing mL/min Estimated GFR (MDRD) ml/min Glucose (74-106) mg/dL POC Glucose (60-110) mg/dL Hemoglobin A1c 6.6 H (4.5-6.2) % Calcium (8.5-10.1) mg/dL Phosphorus (2.6-4.7) mg/dL Magnesium (1.8-2.4) mg/dL Blood Type B POSITIVE Antibody Screen NEGATIVE Crossmatch See Detail 04/18/19 04/18/19 04/18/19 Range/Units 06:10 06:10 06:10 WBC 9.83 (4.0-11.0) K/uL RBC 4.61 (4.50-5.90) M/uL Hgb 13.5 (13.0-17.0) g/dL Hct 39.8 (38.0-50.0) % MCV 86.3 (80.0-98.0) fL MCH 29.3 (27.0-32.0) pg MCHC 33.9 (31.0-37.0) g/dL RDW Std Deviation 45.8 (28.0-62.0) fl RDW Coeff of Marilee 15 (11.0-15.0) % Plt Count 225 (150-400) K/uL MPV 9.90 (7.40-12.00) fL Neut % (Auto) 83.9 H (48.0-80.0) % Lymph % (Auto) 3.4 L (16.0-40.0) % Ferry % (Auto) 11.8 (0.0-15.0) % Eos % (Auto) 0.8 (0.0-7.0) % Baso % (Auto) 0.1 (0.0-1.5) % Neut # (Auto) 8.3 H (1.4-5.7) K/uL Lymph # (Auto) 0.3 L (0.6-2.4) K/uL Ferry # (Auto) 1.2 H (0.0-0.8) K/uL Eos # (Auto) 0.1 (0.0-0.7) K/uL Baso # (Auto) 0.0 (0.0-0.1) K/uL Nucleated RBC % 0.0 /100WBC Nucleated RBCs # 0 K/uL INR 1.18 Sodium 140 (136-148) mmol/L Potassium 3.8 (3.5-5.1) mmol/L Chloride 103 (98-107) mmol/L Carbon Dioxide 29.4 (21.0-32.0) mmol/L BUN 17 (7.0-18.0) mg/dL Creatinine 1.2 (0.8-1.3) mg/dL Est Cr Clr Drug Dosing 67.11 mL/min Estimated GFR (MDRD) > 60.0 ml/min Glucose 153 H (74-106) mg/dL POC Glucose (60-110) mg/dL Hemoglobin A1c (4.5-6.2) % Calcium 8.1 L (8.5-10.1) mg/dL Phosphorus 2.8 (2.6-4.7) mg/dL Magnesium 1.7 L (1.8-2.4) mg/dL Blood Type Antibody Screen Crossmatch 04/18/19 Range/Units 06:36 WBC (4.0-11.0) K/uL RBC (4.50-5.90) M/uL Hgb (13.0-17.0) g/dL Hct (38.0-50.0) % MCV (80.0-98.0) fL MCH (27.0-32.0) pg MCHC (31.0-37.0) g/dL RDW Std Deviation (28.0-62.0) fl RDW Coeff of Marilee (11.0-15.0) % Plt Count (150-400) K/uL MPV (7.40-12.00) fL Neut % (Auto) (48.0-80.0) % Lymph % (Auto) (16.0-40.0) % Ferry % (Auto) (0.0-15.0) % Eos % (Auto) (0.0-7.0) % Baso % (Auto) (0.0-1.5) % Neut # (Auto) (1.4-5.7) K/uL Lymph # (Auto) (0.6-2.4) K/uL Ferry # (Auto) (0.0-0.8) K/uL Eos # (Auto) (0.0-0.7) K/uL Baso # (Auto) (0.0-0.1) K/uL Nucleated RBC % /100WBC Nucleated RBCs # K/uL INR Sodium (136-148) mmol/L Potassium (3.5-5.1) mmol/L Chloride (98-107) mmol/L Carbon Dioxide (21.0-32.0) mmol/L BUN (7.0-18.0) mg/dL Creatinine (0.8-1.3) mg/dL Est Cr Clr Drug Dosing mL/min Estimated GFR (MDRD) ml/min Glucose (74-106) mg/dL POC Glucose 131 H (60-110) mg/dL Hemoglobin A1c (4.5-6.2) % Calcium (8.5-10.1) mg/dL Phosphorus (2.6-4.7) mg/dL Magnesium (1.8-2.4) mg/dL Blood Type Antibody Screen Crossmatch Med Orders - Current: Current Medications Hydrocodone Bitart/Acetaminophen ([place] 325-10 Mg) 1 - 2 tab PO Q6H PRN PRN Reason: Pain Last Admin: 04/18/19 05:32 Dose: 2 tab Al Hydroxide/Mg Hydroxide (Mag-Al Plus) 30 ml PO Q4H PRN PRN Reason: Indigestion Albuterol (Proventil Neb Soln) 2.5 mg NEB ONETIME PRN PRN Reason: Wheezing Last Admin: 04/17/19 16:45 Dose: 2.5 mg Albuterol/Ipratropium (Duoneb 3.0-0.5 Mg/3 Ml) 3 ml NEB Q4HRRT PRN PRN Reason: Shortness Of Breath/wheezing Last Admin: 04/16/19 21:18 Dose: 3 ml Amlodipine Besylate (Norvasc) 10 mg PO DAILY [facility] Last Admin: 04/17/19 11:13 Dose: Not Given Atropine Sulfate (Atropine 0.1 Mg/Ml) 0.5 mg IVPUSH ASDIRECTED PRN PRN Reason: Hypo-perfusion Atropine Sulfate (Atropine 0.1 Mg/Ml) 1 mg IVPUSH ASDIRECTED PRN PRN Reason: Hypo-Perfusion Bisacodyl (Dulcolax) 10 mg RECTAL DAILY PRN PRN Reason: Constipation Celecoxib (Celebrex) 200 mg PO DAILY [facility] Last Admin: 04/17/19 20:52 Dose: 200 mg Dextrose/Water (Dextrose 50% In Water) 50 ml IVPUSH ASDIRECTED PRN PRN Reason: Hypoglycemia Diphenhydramine HCl (Benadryl) 25 - 50 mg PO Q6H PRN PRN Reason: Itching Docusate Sodium (Colace) 100 mg PO BID PRN PRN Reason: Constipation Epinephrine HCl (Epinephrine 1:10,000) 1 mg IVPUSH ASDIRECTED PRN PRN Reason: ACLS Guidelines Fentanyl (Sublimaze) 50 mcg IVPUSH Q5M PRN PRN Reason: Pain Finasteride (Proscar) 5 mg PO DAILY [facility] Last Admin: 04/17/19 11:14 Dose: Not Given Pantoprazole Sodium 40 mg/ (Sodium Chloride) 10 mls @ 300 mls/hr IV Q12HR [facility] Last Admin: 04/17/19 20:48 Dose: 300 mls/hr Ropivacaine 49.25 ml/Ketorolac Tromethamine 30 mg/Epinephrine HCl 0.5 mg/ Clonidine HCl 80 mcg/ Sodium Chloride 75 mls @ 50 mls/sec INJECT ASDIRECTED [facility] Magnesium Sulfate 2 gm/ Premix 50 mls @ 50 mls/hr IV ONETIME ONE Stop: 04/18/19 08:44 Insulin Aspart (Novolog) 0 unit SUBCUT TIDAC [facility]; Protocol Last Admin: 04/18/19 07:01 Dose: Not Given Naloxone HCl (Narcan) 0.04 mg IVPUSH Q3M PRN PRN Reason: Respiratory Depression Naloxone HCl (Narcan) 0.04 mg IVPUSH Q3M PRN PRN Reason: Respiratory Depression Naloxone HCl (Narcan) 0.1 mg IVPUSH ASDIRECTED PRN PRN Reason: Respiratory Depression Ondansetron HCl (Zofran) 4 mg IVPUSH Q6H PRN PRN Reason: Nausea/Vomiting Last Admin: 04/18/19 05:36 Dose: 4 mg Polyethylene Glycol (Miralax) 17 gm PO DAILY [facility] Rosuvastatin Calcium (Crestor) 5 mg PO DAILY [facility] Last Admin: 04/17/19 11:13 Dose: Not Given Sodium Chloride (Saline Flush) 10 ml FLUSH ASDIRECTED PRN PRN Reason: Keep Vein Open Sodium Chloride (Saline Flush) 2.5 ml FLUSH ASDIRECTED PRN PRN Reason: Keep Vein Open Sodium Phosphate (Neutra-Phos) 250 mg PO QID [facility] Last Admin: 04/18/19 05:32 Dose: 250 mg Tramadol HCl (Ultram) 50 - 100 mg PO Q6H PRN PRN Reason: Pain Last Admin: 04/18/19 03:57 Dose: 50 mg Warfarin Sodium (Coumadin) 10 mg PO Q24H [facility] Discontinued Medications Bupivacaine HCl (Sensorcaine-Mpf 0.5%) Confirm Administered Dose 10 ml .ROUTE .STK-MED ONE Stop: 04/15/19 17:46 Bupivacaine HCl (Marcaine 0.5%) Confirm Administered Dose 30 ml .ROUTE .STK-MED ONE Stop: 04/15/19 17:49 Cefazolin Sodium/Dextrose (Ancef) Confirm Administered Dose 2 gm IV .STK-MED ONE Stop: 04/17/19 13:05 Diphenhydramine HCl (Benadryl) 25 mg IVPUSH Q6H PRN PRN Reason: Itching Diphenhydramine HCl (Benadryl) 25 mg PO Q6H PRN PRN Reason: Itching Diphenhydramine HCl (Benadryl) 25 mg IVPUSH Q6H PRN PRN Reason: Itching Diphenhydramine HCl (Benadryl) 25 mg PO Q6H PRN PRN Reason: Itching Docusate Sodium (Colace) 100 mg PO DAILY [facility] Last Admin: 04/17/19 11:12 Dose: Not Given Fentanyl (Fentanyl) 50 mcg IVPUSH ONETIME ONE Stop: 04/15/19 16:11 Last Admin: 04/15/19 16:25 Dose: 50 mcg Fentanyl (Sublimaze) Confirm Administered Dose 100 mcg .ROUTE .STK-MED ONE Stop: 04/15/19 16:17 Last Admin: 04/15/19 16:27 Dose: Not Given Fentanyl (Sublimaze) Confirm Administered Dose 100 mcg .ROUTE .STK-MED ONE Stop: 04/17/19 12:26 Fentanyl (Sublimaze) Confirm Administered Dose 100 mcg .ROUTE .STK-MED ONE Stop: 04/17/19 13:22 Hydromorphone HCl (Dilaudid) 1 mg IVPUSH ONETIME ONE Stop: 04/15/19 17:41 Last Admin: 04/15/19 17:49 Dose: 1 mg Sodium Chloride (Normal Saline) 1,000 mls @ 125 mls/hr IV ASDIRECTED [facility] Last Admin: 04/17/19 12:46 Dose: 125 mls/hr Magnesium Sulfate 2 gm/ Premix 50 mls @ 50 mls/hr IV ONETIME ONE Stop: 04/16/19 04:35 Last Admin: 04/16/19 04:35 Dose: 50 mls/hr Cefazolin Sodium/Dextrose 2 gm (/ Premix) 50 mls @ 100 mls/hr IV ONETIME ONE Stop: 04/17/19 08:59 Last Admin: 04/17/19 08:35 Dose: 100 mls/hr Tranexamic Acid 1,000 mg/ (Sodium Chloride) 110 mls @ 600 mls/hr IV ASDIRECTED ONE Stop: 04/17/19 13:10 Last Admin: 04/17/19 17:09 Dose: Not Given Cefazolin Sodium/Dextrose 2 gm (/ Premix) 50 mls @ 100 mls/hr IV Q8H [facility] Stop: 04/18/19 05:29 Last Admin: 04/18/19 05:06 Dose: 100 mls/hr Lidocaine HCl (Xylocaine 1%) Confirm Administered Dose 20 ml .ROUTE .STK-MED ONE Stop: 04/15/19 17:46 Lidocaine HCl (Xylocaine-Mpf 1%) Confirm Administered Dose 5 ml .ROUTE .STK-MED ONE Stop: 04/17/19 12:26 Lidocaine HCl (Xylocaine-Mpf 1%) Confirm Administered Dose 5 ml .ROUTE .STK-MED ONE Stop: 04/17/19 15:29 Midazolam HCl (Versed 1 Mg/Ml) Confirm Administered Dose 2 mg .ROUTE .STK-MED ONE Stop: 04/17/19 12:26 Midazolam HCl (Versed 1 Mg/Ml) Confirm Administered Dose 2 mg .ROUTE .STK-MED ONE Stop: 04/17/19 16:22 Midazolam HCl (Versed 1 Mg/Ml) Confirm Administered Dose 2 mg .ROUTE .STK-MED ONE Stop: 04/17/19 16:28 Morphine Sulfate (Morphine) 4 mg IVPUSH ONETIME ONE Stop: 04/15/19 14:31 Last Admin: 04/15/19 14:44 Dose: 4 mg Morphine Sulfate (Morphine) 2 mg IVPUSH Q4H PRN PRN Reason: Pain (severe 7-10) Stop: 04/16/19 16:52 Last Admin: 04/15/19 19:59 Dose: 2 mg Morphine Sulfate (Morphine Inside [employer] Associate 30 Mg In 30 Ml) 0 mg IV ASDIRECTED [facility]; Protocol Last Admin: 04/16/19 05:50 Dose: 30 mg Morphine Sulfate (Morphine Inside Sales Associate 30 Mg In 30 Ml) 0 mg IV ASDIRECTED [facility]; Protocol Last Admin: 04/17/19 05:15 Dose: 30 mg Ondansetron HCl (Zofran) 4 mg IVPUSH ONETIME ONE Stop: 04/15/19 14:31 Last Admin: 04/15/19 14:40 Dose: 4 mg Ondansetron HCl (Zofran) 4 mg IVPUSH Q6H PRN PRN Reason: Nausea/Vomiting Ondansetron HCl (Zofran) 4 mg IVPUSH Q6H PRN PRN Reason: Nausea/Vomiting Phenylephrine HCl (Jadiel-Synephrine) Confirm Administered Dose 10 mg .ROUTE .STK- MED ONE Stop: 04/17/19 12:26 Phenylephrine HCl (Phenylephrine In Ns 100 Mcg/Ml) Confirm Administered Dose 1 mg .ROUTE .STK-MED ONE Stop: 04/17/19 14:41 Propofol (Diprivan 20 Ml) Confirm Administered Dose 400 mg .ROUTE .STK-MED ONE Stop: 04/17/19 12:26 Propofol (Diprivan 20 Ml) Confirm Administered Dose 400 mg .ROUTE .STK-MED ONE Stop: 04/17/19 14:02 Propofol (Diprivan 20 Ml) Confirm Administered Dose 200 mg .ROUTE .STK-MED ONE Stop: 04/17/19 14:10 Tranexamic Acid (Cyklokapron) Confirm Administered Dose 1,000 mg .ROUTE .STK- MED ONE Stop: 04/17/19 12:45 Warfarin Sodium (Coumadin) 20 mg PO ONETIME ONE Stop: 04/17/19 21:01 Last Admin: 04/17/19 20:55 Dose: 20 mg - Exam Quality Assessment: Supplemental Oxygen, DVT Prophylaxis General: Alert, Oriented, Other (easily falling asleep during conversation. ) Lungs: Clear to Auscultation, Normal Respiratory Effort Cardiovascular: Regular Rate, Regular Rhythm GI/Abdominal Exam: Normal Bowel Sounds, Soft, Non-Tender Extremities: Normal Inspection, Normal Range of Motion, Non-Tender, No Pedal Edema. No: Increased Warmth, Redness Skin: Warm, Dry, Intact Wound/Incisions: Dressing Dry and Intact (left hip) Psy/Mental Status: Alert, Normal Affect, Normal Mood Sepsis Event Note - Evaluation Sepsis Screening Result: No Definite Risk - Focused Exam Vital Signs: Vital Signs Temp Pulse Resp BP Pulse Ox 04/18/19 05:44 99.2 F 04/18/19 03:45 98.3 F 76 18 156/76 H 98 04/17/19 23:59 99.8 F 76 18 135/68 96 04/17/19 20:00 73 18 135/65 97 Date Exam was Performed: 04/18/19 Time Exam was Performed: 09:47 - Problem List & Annotations (1) Subcapital fracture of neck of left femur SNOMED Code(s): 403617644 Code(s): S72.012A - UNSP INTRACAPSULAR FRACTURE OF LEFT FEMUR, INIT FOR CLOS FX Status: Acute Current Visit: Yes Qualifiers: Encounter type: initial encounter Fracture type: closed Qualified Code(s) : S72.012A - Unspecified intracapsular fracture of left femur, initial encounter for closed fracture (2) Chronic anticoagulation SNOMED Code(s): 110907089 Code(s): Z79.01 - SNF (CURRENT) USE OF ANTICOAGULANTS Status: Chronic Current Visit: No (3) Dyslipidemia SNOMED Code(s): 034929447 Code(s): E78.5 - HYPERLIPIDEMIA, UNSPECIFIED Status: Chronic Current Visit: No (4) HTN (hypertension) SNOMED Code(s): 79601140 Code(s): I10 - ESSENTIAL (PRIMARY) HYPERTENSION Status: Chronic Current Visit: No Qualifiers: Hypertension type: essential hypertension Qualified Code(s): I10 - Essential (primary) hypertension (5) PAD (peripheral artery disease) SNOMED Code(s): 081883653 Code(s): I73.9 - PERIPHERAL VASCULAR DISEASE, UNSPECIFIED Status: Chronic Current Visit: No (6) New onset type 2 diabetes mellitus SNOMED Code(s): 30649554 Code(s): E11.9 - TYPE 2 DIABETES MELLITUS WITHOUT COMPLICATIONS Status: Acute Current Visit: Yes - Problem List Review Problem List Initiated/Reviewed/Updated: Yes - My Orders Last 24 Hours: My Active Orders 04/17/19 10:25 Resuscitation Status Routine 04/17/19 17:00 Insulin Aspart [NovoLOG] See Protocol SUBCUT TIDAC 04/17/19 18:00 Phosphorus #1 [Neutra-Phos] 250 mg PO QID 04/18/19 07:45 Magnesium Sulfate/Water [Magnesium Sulfate in Water Premix] 2 gm Premix Bag 1 bag IV ONETIME 04/19/19 05:11 BASIC METABOLIC PANEL,BMP [CHEM] AM CBC WITH AUTO DIFF [HEME] AM MAGNESIUM [CHEM] AM PHOSPHORUS [CHEM] AM 04/20/19 05:11 BASIC METABOLIC PANEL,BMP [CHEM] AM CBC WITH AUTO DIFF [HEME] AM MAGNESIUM [CHEM] AM PHOSPHORUS [CHEM] AM - Plan Plan:: This 64 year old male admitted for left femoral fracture, has significant hx of PAD with grafting and stenting to lower extremities and on Coumadin for anticoagulation. 1. L femoral fracture: - OR yesterday afternoon, did well post -operatively. - Pain control per Orthopedics - Restarted Coumadin, bridge with Lovenox. Monitor INR daily - Continue bowel regimen 2. HTN: Stable - Continue antihypertensive, Amlodipine. On telemetry. 3. PAD - Restart Coumadin today, INR 1.14. Will start Lovenox to bridge therapy this evening, 24 hours after spinal. - Consult Pharmacy to help with dosing and monitoring of Coumadin therapy. - Discontinued Celebrex due to bleeding risk as well as significant cardiac risk with PAD. - Replacing magnesium and phosphorus today. 4. New onset DM type 2: - Obtained A1c due to elevated fasting glucose during stay, returns at 6.6 - DM educator consult this afternoon to allow for patient to be more alert and less sedated from pain meds for education. - Novolog SSI with meals. - Likely DC home on Metformin. VTE prophylaxis: SCDs, Coumadin on Hold. GI prophylaxis: Protonix IV Code status: FULL Code
--- NOTE | 2019-04-18 08:11 | PCM.SURGPN ---
- General Info Date of Service: 04/18/19 (0800) Date of Surgery/Procedure: 04/17/19 POD#: 1 Post-Op Diagnosis: s/p Left total hip arthroplasty Admission Diagnosis/Problem: Hip fracture requiring operative repair Functional Status: Reports: Pain Controlled (falling asleep during visit), Tolerating Diet (eating breakfast this morning without N/V), Urinating - Review of Systems General: Reports: No Symptoms Pulmonary: Reports: No Symptoms. Denies: Shortness of Breath Cardiovascular: Reports: No Symptoms. Denies: Chest Pain Gastrointestinal: Denies: Nausea, Vomiting Musculoskeletal: Reports: Other (post-op left hip pain) Neurological: Reports: No Symptoms Psychiatric: Reports: No Symptoms - Patient Data Vitals - Most Recent: Last Vital Signs Temp 37.3 C 04/18/19 05:44 Pulse 76 04/18/19 03:45 Resp 18 04/18/19 03:45 BP 156/76 H 04/18/19 03:45 Pulse Ox 98 04/18/19 03:45 Weight - Most Recent: 99.79 kg I&O - Last 24 Hours: Intake & Output 04/17/19 04/18/19 04/18/19 22:59 06:59 14:59 Intake Total 2400 650 Output Total 200 1075 Balance 2200 -425 Lab Results Last 24 Hrs: Laboratory Results - last 24 hr 04/17/19 04/17/19 04/17/19 Range/Units 06:05 07:06 17:55 WBC (4.0-11.0) K/uL RBC (4.50-5.90) M/uL Hgb (13.0-17.0) g/dL Hct (38.0-50.0) % MCV (80.0-98.0) fL MCH (27.0-32.0) pg MCHC (31.0-37.0) g/dL RDW Std Deviation (28.0-62.0) fl RDW Coeff of [place] (11.0-15.0) % Plt Count (150-400) K/uL MPV (7.40-12.00) fL Neut % (Auto) (48.0-80.0) % Lymph % (Auto) (16.0-40.0) % [place] % (Auto) (0.0-15.0) % Eos % (Auto) (0.0-7.0) % Baso % (Auto) (0.0-1.5) % Neut # (Auto) (1.4-5.7) K/uL Lymph # (Auto) (0.6-2.4) K/uL [place] # (Auto) (0.0-0.8) K/uL Eos # (Auto) (0.0-0.7) K/uL Baso # (Auto) (0.0-0.1) K/uL Nucleated RBC % /100WBC Nucleated RBCs # K/uL INR 1.10 Sodium (136-148) mmol/L Potassium (3.5-5.1) mmol/L Chloride (98-107) mmol/L Carbon Dioxide (21.0-32.0) mmol/L BUN (7.0-18.0) mg/dL Creatinine (0.8-1.3) mg/dL Est Cr Clr Drug Dosing mL/min Estimated GFR (MDRD) ml/min Glucose (74-106) mg/dL POC Glucose (60-110) mg/dL Hemoglobin A1c 6.6 H (4.5-6.2) % Calcium (8.5-10.1) mg/dL Phosphorus (2.6-4.7) mg/dL Magnesium (1.8-2.4) mg/dL Blood Type B POSITIVE Antibody Screen NEGATIVE Crossmatch See Detail 04/18/19 04/18/19 04/18/19 Range/Units 06:10 06:10 06:10 WBC 9.83 (4.0-11.0) K/uL RBC 4.61 (4.50-5.90) M/uL Hgb 13.5 (13.0-17.0) g/dL Hct 39.8 (38.0-50.0) % MCV 86.3 (80.0-98.0) fL MCH 29.3 (27.0-32.0) pg MCHC 33.9 (31.0-37.0) g/dL RDW Std Deviation 45.8 (28.0-62.0) fl RDW Coeff of [place] 15 (11.0-15.0) % Plt Count 225 (150-400) K/uL MPV 9.90 (7.40-12.00) fL Neut % (Auto) 83.9 H (48.0-80.0) % Lymph % (Auto) 3.4 L (16.0-40.0) % [place] % (Auto) 11.8 (0.0-15.0) % Eos % (Auto) 0.8 (0.0-7.0) % Baso % (Auto) 0.1 (0.0-1.5) % Neut # (Auto) 8.3 H (1.4-5.7) K/uL Lymph # (Auto) 0.3 L (0.6-2.4) K/uL [place] # (Auto) 1.2 H (0.0-0.8) K/uL Eos # (Auto) 0.1 (0.0-0.7) K/uL Baso # (Auto) 0.0 (0.0-0.1) K/uL Nucleated RBC % 0.0 /100WBC Nucleated RBCs # 0 K/uL INR 1.18 Sodium 140 (136-148) mmol/L Potassium 3.8 (3.5-5.1) mmol/L Chloride 103 (98-107) mmol/L Carbon Dioxide 29.4 (21.0-32.0) mmol/L BUN 17 (7.0-18.0) mg/dL Creatinine 1.2 (0.8-1.3) mg/dL Est Cr Clr Drug Dosing 67.11 mL/min Estimated GFR (MDRD) > 60.0 ml/min Glucose 153 H (74-106) mg/dL POC Glucose (60-110) mg/dL Hemoglobin A1c (4.5-6.2) % Calcium 8.1 L (8.5-10.1) mg/dL Phosphorus 2.8 (2.6-4.7) mg/dL Magnesium 1.7 L (1.8-2.4) mg/dL Blood Type Antibody Screen Crossmatch 04/18/19 Range/Units 06:36 WBC (4.0-11.0) K/uL RBC (4.50-5.90) M/uL Hgb (13.0-17.0) g/dL Hct (38.0-50.0) % MCV (80.0-98.0) fL MCH (27.0-32.0) pg MCHC (31.0-37.0) g/dL RDW Std Deviation (28.0-62.0) fl RDW Coeff of Mar[place] (11.0-15.0) % Plt Count (150-400) K/uL MPV (7.40-12.00) fL Neut % (Auto) (48.0-80.0) % Lymph % (Auto) (16.0-40.0) % [place] % (Auto) (0.0-15.0) % Eos % (Auto) (0.0-7.0) % Baso % (Auto) (0.0-1.5) % Neut # (Auto) (1.4-5.7) K/uL Lymph # (Auto) (0.6-2.4) K/uL [place] # (Auto) (0.0-0.8) K/uL Eos # (Auto) (0.0-0.7) K/uL Baso # (Auto) (0.0-0.1) K/uL Nucleated RBC % /100WBC Nucleated RBCs # K/uL INR Sodium (136-148) mmol/L Potassium (3.5-5.1) mmol/L Chloride (98-107) mmol/L Carbon Dioxide (21.0-32.0) mmol/L BUN (7.0-18.0) mg/dL Creatinine (0.8-1.3) mg/dL Est Cr Clr Drug Dosing mL/min Estimated GFR (MDRD) ml/min Glucose (74-106) mg/dL POC Glucose 131 H (60-110) mg/dL Hemoglobin A1c (4.5-6.2) % Calcium (8.5-10.1) mg/dL Phosphorus (2.6-4.7) mg/dL Magnesium (1.8-2.4) mg/dL Blood Type Antibody Screen Crossmatch Med Orders - Current: Current Medications Hydrocodone Bitart/Acetaminophen ([place] 325-10 Mg) 1 - 2 tab PO Q6H PRN PRN Reason: Pain Last Admin: 04/18/19 05:32 Dose: 2 tab Al Hydroxide/Mg Hydroxide (Mag-Al Plus) 30 ml PO Q4H PRN PRN Reason: Indigestion Albuterol (Proventil Neb Soln) 2.5 mg NEB ONETIME PRN PRN Reason: Wheezing Last Admin: 04/17/19 16:45 Dose: 2.5 mg Albuterol/Ipratropium (Duoneb 3.0-0.5 Mg/3 Ml) 3 ml NEB Q4HRRT PRN PRN Reason: Shortness Of Breath/wheezing Last Admin: 04/16/19 21:18 Dose: 3 ml Amlodipine Besylate (Norvasc) 10 mg PO DAILY [facility] Last Admin: 04/17/19 11:13 Dose: Not Given Atropine Sulfate (Atropine 0.1 Mg/Ml) 0.5 mg IVPUSH ASDIRECTED PRN PRN Reason: Hypo-perfusion Atropine Sulfate (Atropine 0.1 Mg/Ml) 1 mg IVPUSH ASDIRECTED PRN PRN Reason: Hypo-Perfusion Bisacodyl (Dulcolax) 10 mg RECTAL DAILY PRN PRN Reason: Constipation Celecoxib (Celebrex) 200 mg PO DAILY [facility] Last Admin: 04/17/19 20:52 Dose: 200 mg Dextrose/Water (Dextrose 50% In Water) 50 ml IVPUSH ASDIRECTED PRN PRN Reason: Hypoglycemia Diphenhydramine HCl (Benadryl) 25 - 50 mg PO Q6H PRN PRN Reason: Itching Docusate Sodium (Colace) 100 mg PO BID PRN PRN Reason: Constipation Epinephrine HCl (Epinephrine 1:10,000) 1 mg IVPUSH ASDIRECTED PRN PRN Reason: ACLS Guidelines Fentanyl (Sublimaze) 50 mcg IVPUSH Q5M PRN PRN Reason: Pain Finasteride (Proscar) 5 mg PO DAILY [facility] Last Admin: 04/17/19 11:14 Dose: Not Given Pantoprazole Sodium 40 mg/ (Sodium Chloride) 10 mls @ 300 mls/hr IV Q12HR [facility] Last Admin: 04/17/19 20:48 Dose: 300 mls/hr Ropivacaine 49.25 ml/Ketorolac Tromethamine 30 mg/Epinephrine HCl 0.5 mg/ Clonidine HCl 80 mcg/ Sodium Chloride 75 mls @ 50 mls/sec INJECT ASDIRECTED [facility] Magnesium Sulfate 2 gm/ Premix 50 mls @ 50 mls/hr IV ONETIME ONE Stop: 04/18/19 08:44 Insulin Aspart (Novolog) 0 unit SUBCUT TIDAC [facility]; Protocol Last Admin: 04/18/19 07:01 Dose: Not Given Naloxone HCl (Narcan) 0.04 mg IVPUSH Q3M PRN PRN Reason: Respiratory Depression Naloxone HCl (Narcan) 0.04 mg IVPUSH Q3M PRN PRN Reason: Respiratory Depression Naloxone HCl (Narcan) 0.1 mg IVPUSH ASDIRECTED PRN PRN Reason: Respiratory Depression Ondansetron HCl (Zofran) 4 mg IVPUSH Q6H PRN PRN Reason: Nausea/Vomiting Last Admin: 04/18/19 05:36 Dose: 4 mg Polyethylene Glycol (Miralax) 17 gm PO DAILY [facility] Rosuvastatin Calcium (Crestor) 5 mg PO DAILY [facility] Last Admin: 04/17/19 11:13 Dose: Not Given Sodium Chloride (Saline Flush) 10 ml FLUSH ASDIRECTED PRN PRN Reason: Keep Vein Open Sodium Chloride (Saline Flush) 2.5 ml FLUSH ASDIRECTED PRN PRN Reason: Keep Vein Open Sodium Phosphate (Neutra-Phos) 250 mg PO QID [facility] Last Admin: 04/18/19 05:32 Dose: 250 mg Tramadol HCl (Ultram) 50 - 100 mg PO Q6H PRN PRN Reason: Pain Last Admin: 04/18/19 03:57 Dose: 50 mg Warfarin Sodium (Coumadin) 10 mg PO Q24H [facility] Discontinued Medications Bupivacaine HCl (Sensorcaine-Mpf 0.5%) Confirm Administered Dose 10 ml .ROUTE .STK-MED ONE Stop: 04/15/19 17:46 Bupivacaine HCl (Marcaine 0.5%) Confirm Administered Dose 30 ml .ROUTE .STK-MED ONE Stop: 04/15/19 17:49 Cefazolin Sodium/Dextrose (Ancef) Confirm Administered Dose 2 gm IV .STK-MED ONE Stop: 04/17/19 13:05 Diphenhydramine HCl (Benadryl) 25 mg IVPUSH Q6H PRN PRN Reason: Itching Diphenhydramine HCl (Benadryl) 25 mg PO Q6H PRN PRN Reason: Itching Diphenhydramine HCl (Benadryl) 25 mg IVPUSH Q6H PRN PRN Reason: Itching Diphenhydramine HCl (Benadryl) 25 mg PO Q6H PRN PRN Reason: Itching Docusate Sodium (Colace) 100 mg PO DAILY [facility] Last Admin: 04/17/19 11:12 Dose: Not Given Fentanyl (Fentanyl) 50 mcg IVPUSH ONETIME ONE Stop: 04/15/19 16:11 Last Admin: 04/15/19 16:25 Dose: 50 mcg Fentanyl (Sublimaze) Confirm Administered Dose 100 mcg .ROUTE .STK-MED ONE Stop: 04/15/19 16:17 Last Admin: 04/15/19 16:27 Dose: Not Given Fentanyl (Sublimaze) Confirm Administered Dose 100 mcg .ROUTE .STK-MED ONE Stop: 04/17/19 12:26 Fentanyl (Sublimaze) Confirm Administered Dose 100 mcg .ROUTE .STK-MED ONE Stop: 04/17/19 13:22 Hydromorphone HCl (Dilaudid) 1 mg IVPUSH ONETIME ONE Stop: 04/15/19 17:41 Last Admin: 04/15/19 17:49 Dose: 1 mg Sodium Chloride (Normal Saline) 1,000 mls @ 125 mls/hr IV ASDIRECTED [facility] Last Admin: 04/17/19 12:46 Dose: 125 mls/hr Magnesium Sulfate 2 gm/ Premix 50 mls @ 50 mls/hr IV ONETIME ONE Stop: 04/16/19 04:35 Last Admin: 04/16/19 04:35 Dose: 50 mls/hr Cefazolin Sodium/Dextrose 2 gm (/ Premix) 50 mls @ 100 mls/hr IV ONETIME ONE Stop: 04/17/19 08:59 Last Admin: 04/17/19 08:35 Dose: 100 mls/hr Tranexamic Acid 1,000 mg/ (Sodium Chloride) 110 mls @ 600 mls/hr IV ASDIRECTED ONE Stop: 04/17/19 13:10 Last Admin: 04/17/19 17:09 Dose: Not Given Cefazolin Sodium/Dextrose 2 gm (/ Premix) 50 mls @ 100 mls/hr IV Q8H [facility] Stop: 04/18/19 05:29 Last Admin: 04/18/19 05:06 Dose: 100 mls/hr Lidocaine HCl (Xylocaine 1%) Confirm Administered Dose 20 ml .ROUTE .STK-MED ONE Stop: 04/15/19 17:46 Lidocaine HCl (Xylocaine-Mpf 1%) Confirm Administered Dose 5 ml .ROUTE .STK-MED ONE Stop: 04/17/19 12:26 Lidocaine HCl (Xylocaine-Mpf 1%) Confirm Administered Dose 5 ml .ROUTE .STK-MED ONE Stop: 04/17/19 15:29 Midazolam HCl (Versed 1 Mg/Ml) Confirm Administered Dose 2 mg .ROUTE .STK-MED ONE Stop: 04/17/19 12:26 Midazolam HCl (Versed 1 Mg/Ml) Confirm Administered Dose 2 mg .ROUTE .STK-MED ONE Stop: 04/17/19 16:22 Midazolam HCl (Versed 1 Mg/Ml) Confirm Administered Dose 2 mg .ROUTE .STK-MED ONE Stop: 04/17/19 16:28 Morphine Sulfate (Morphine) 4 mg IVPUSH ONETIME ONE Stop: 04/15/19 14:31 Last Admin: 04/15/19 14:44 Dose: 4 mg Morphine Sulfate (Morphine) 2 mg IVPUSH Q4H PRN PRN Reason: Pain (severe 7-10) Stop: 04/16/19 16:52 Last Admin: 04/15/19 19:59 Dose: 2 mg Morphine Sulfate (Morphine Machine Rough Rounder 30 Mg In 30 Ml) 0 mg IV ASDIRECTED [facility]; Protocol Last Admin: 04/16/19 05:50 Dose: 30 mg Morphine Sulfate (Morphine Machine Rough Rounder 30 Mg In 30 Ml) 0 mg IV ASDIRECTED [facility]; Protocol Last Admin: 04/17/19 05:15 Dose: 30 mg Ondansetron HCl (Zofran) 4 mg IVPUSH ONETIME ONE Stop: 04/15/19 14:31 Last Admin: 04/15/19 14:40 Dose: 4 mg Ondansetron HCl (Zofran) 4 mg IVPUSH Q6H PRN PRN Reason: Nausea/Vomiting Ondansetron HCl (Zofran) 4 mg IVPUSH Q6H PRN PRN Reason: Nausea/Vomiting Phenylephrine HCl (Jadiel-Synephrine) Confirm Administered Dose 10 mg .ROUTE .STK- MED ONE Stop: 04/17/19 12:26 Phenylephrine HCl (Phenylephrine In Ns 100 Mcg/Ml) Confirm Administered Dose 1 mg .ROUTE .STK-MED ONE Stop: 04/17/19 14:41 Propofol (Diprivan 20 Ml) Confirm Administered Dose 400 mg .ROUTE .STK-MED ONE Stop: 04/17/19 12:26 Propofol (Diprivan 20 Ml) Confirm Administered Dose 400 mg .ROUTE .STK-MED ONE Stop: 04/17/19 14:02 Propofol (Diprivan 20 Ml) Confirm Administered Dose 200 mg .ROUTE .STK-MED ONE Stop: 04/17/19 14:10 Tranexamic Acid (Cyklokapron) Confirm Administered Dose 1,000 mg .ROUTE .STK- MED ONE Stop: 04/17/19 12:45 Warfarin Sodium (Coumadin) 20 mg PO ONETIME ONE Stop: 04/17/19 21:01 Last Admin: 04/17/19 20:55 Dose: 20 mg - Exam Wound/Incisions: Dressing Dry and Intact, No Drainage. No: Erythema Quality Assessment: Supplemental Oxygen, DVT Prophylaxis (bilateral SCDs. Coumadin resumed) General: Alert, Oriented, Cooperative, No Acute Distress Lungs: Normal Respiratory Effort Cardiovascular: Other (PP 2+) Extremities: Normal Capillary Refill. No: Pedal Edema Skin: Warm, Dry Neurological: Normal Speech, Normal Tone Psy/Mental Status: Normal Affect, Normal Mood, Other (alert, but drifts off into sleep, easily arousable) Sepsis Event Note - Evaluation Sepsis Screening Result: No Definite Risk - Focused Exam Vital Signs: Vital Signs Temp Pulse Resp BP Pulse Ox 04/18/19 05:44 37.3 C 04/18/19 03:45 36.8 C 76 18 156/76 H 98 04/17/19 23:59 37.7 C 76 18 135/68 96 Date Exam was Performed: 04/18/19 Time Exam was Performed: 08:04 - Problem List Review Problem List Initiated/Reviewed/Updated: Yes - My Orders Last 24 Hours: Active Orders 24 hr Category Date Time Status Blood Glucose Check, Bedside [RC] PRN Care 04/17/19 14:24 Active Communication Order [RC] PRN Care 04/17/19 16:39 Active Communication Order [RC] PRN Care 04/17/19 18:00 Active Cooling Warming Measures [RC] ASDIRECTED Care 04/17/19 16:40 Active Neurovascular Check [RC] Q2HR Care 04/17/19 16:39 Active Notify Provider Consults [RC] ASDIRECTED Care 04/17/19 08:31 Active Notify Provider Vital Signs [RC] ASDIRECTED Care 04/17/19 14:24 Active Oxygen Therapy [RC] PRN Care 04/17/19 14:24 Active RT Aerosol Therapy [RC] ASDIRECTED Care 04/17/19 14:24 Active RT Aerosol Therapy [RC] ASDIRECTED Care 04/17/19 14:24 Active RT Incentive Spirometry [RC] Q1HWA Care 04/17/19 16:39 Active Vital Signs [RC] PER UNIT ROUTINE Care 04/17/19 16:39 Active Vital Signs [RC] Q4H Care 04/17/19 14:24 Active Wound Care [RC] DAILY Care 04/17/19 16:39 Active Consult to Physician [CONS] Urgent Cons 04/17/19 08:22 Active PT Evaluation and Treatment [CONS] Routine Cons 04/17/19 16:39 Active Regular Diet [DIET] Diet 04/17/19 Dinner Active Echo Comp wo Cont [US] Stat Exams 04/17/19 09:08 Taken BASIC METABOLIC PANEL,BMP [CHEM] AM Lab 04/19/19 05:11 Ordered BASIC METABOLIC PANEL,BMP [CHEM] AM Lab 04/20/19 05:11 Ordered CBC WITH AUTO DIFF [HEME] AM Lab 04/19/19 05:11 Ordered CBC WITH AUTO DIFF [HEME] AM Lab 04/20/19 05:11 Ordered HEMOGLOBIN/HEMATOCRIT,HH [HEME] DAILY Lab 04/19/19 06:00 Ordered MAGNESIUM [CHEM] AM Lab 04/19/19 05:11 Ordered MAGNESIUM [CHEM] AM Lab 04/20/19 05:11 Ordered PHOSPHORUS [CHEM] AM Lab 04/19/19 05:11 Ordered PHOSPHORUS [CHEM] AM Lab 04/20/19 05:11 Ordered RED BLOOD CELLS LP [BBK] Routine Lab 04/17/19 07:06 Results TYPE AND SCREEN [BBK] Stat Lab 04/17/19 07:06 Results Acetaminophen/HYDROcodone [[place] 325-10 MG] Med 04/17/19 16:34 Active 1 - 2 tab PO Q6H PRN Albuterol [Proventil Neb Soln] Med 04/17/19 14:24 Active 2.5 mg NEB ONETIME PRN Alum Hydrox/Mag Hydrox/Simeth [Mag-Al Plus] Med 04/17/19 16:34 Active 30 ml PO Q4H PRN Atropine [Atropine 0.1 MG/ML] Med 04/17/19 14:24 Active 0.5 mg IVPUSH ASDIRECTED PRN Atropine [Atropine 0.1 MG/ML] Med 04/17/19 14:24 Active 1 mg IVPUSH ASDIRECTED PRN Celecoxib [CeleBREX] Med 04/17/19 21:00 Active 200 mg PO DAILY Dextrose 50% in Water Med 04/17/19 14:24 Active 50 ml IVPUSH ASDIRECTED PRN Docusate Sodium [Colace] Med 04/17/19 16:34 Active 100 mg PO BID PRN EPINEPHrine [EPINEPHrine 1:10,000] Med 04/17/19 14:24 Active 1 mg IVPUSH ASDIRECTED PRN Insulin Aspart [NovoLOG] Med 04/17/19 17:00 Active See Protocol SUBCUT TIDAC Magnesium Sulfate/Water [Magnesium Sulfate in Water Med 04/18/19 07:45 Active Premix] 2 gm Premix Bag 1 bag IV ONETIME Naloxone [Narcan] Med 04/17/19 14:24 Active 0.1 mg IVPUSH ASDIRECTED PRN Ondansetron [Zofran] Med 04/17/19 16:34 Active 4 mg IVPUSH Q6H PRN Phosphorus #1 [Neutra-Phos] Med 04/17/19 18:00 Active 250 mg PO QID Ropivacaine [Naropin 0.2%] 49.25 ml Med 04/17/19 12:15 Active Ketorolac [Toradol] 30 mg EPINEPHrine [Adrenalin] 0.5 mg cloNIDine [Duraclon] 80 mcg Sodium Chloride 0.9% [Normal Saline] 23.45 ml INJECT ASDIRECTED Sodium Chloride 0.9% [Saline Flush] Med 04/17/19 16:34 Active 10 ml FLUSH ASDIRECTED PRN Sodium Chloride 0.9% [Saline Flush] Med 04/17/19 16:34 Active 2.5 ml FLUSH ASDIRECTED PRN Warfarin [Coumadin] Med 04/18/19 14:00 Active 10 mg PO Q24H bisacodyL [Dulcolax] Med 04/17/19 16:34 Active 10 mg RECTAL DAILY PRN diphenhydrAMINE [Benadryl] Med 04/17/19 16:34 Active 25 - 50 mg PO Q6H PRN fentaNYL [Sublimaze] Med 04/17/19 14:24 Active 50 mcg IVPUSH Q5M PRN polyethylene glycoL 3350 [MiraLAX] Med 04/18/19 09:00 Active 17 gm PO DAILY traMADol [Ultram] Med 04/17/19 16:34 Active 50 - 100 mg PO Q6H PRN Convert IV to Saline Lock [OM.PC] PRN Oth 04/17/19 16:45 Ordered Convert IV to Saline Lock [OM.PC] PRN Oth 04/18/19 16:45 Ordered Ice Therapy [OM.PC] Routine Oth 04/17/19 16:39 Ordered Resuscitation Status Routine Resus Stat 04/17/19 10:25 Ordered Medication Orders Hydrocodone Bitart/Acetaminophen ([place] 325-10 Mg) 1 - 2 tab PO Q6H PRN PRN Reason: Pain Last Admin: 04/18/19 05:32 Dose: 2 tab Admin: 04/18/19 00:19 Dose: 1 tab Admin: 04/17/19 18:27 Dose: 1 tab Al Hydroxide/Mg Hydroxide (Mag-Al Plus) 30 ml PO Q4H PRN PRN Reason: Indigestion Albuterol (Proventil Neb Soln) 2.5 mg NEB ONETIME PRN PRN Reason: Wheezing Last Admin: 04/17/19 16:45 Dose: 2.5 mg Albuterol/Ipratropium (Duoneb 3.0-0.5 Mg/3 Ml) 3 ml NEB Q4HRRT PRN PRN Reason: Shortness Of Breath/wheezing Last Admin: 04/16/19 21:18 Dose: 3 ml Amlodipine Besylate (Norvasc) 10 mg PO DAILY [facility] Last Admin: 04/17/19 11:13 Dose: Admin: 04/16/19 08:06 Dose: 10 mg Atropine Sulfate (Atropine 0.1 Mg/Ml) 0.5 mg IVPUSH ASDIRECTED PRN PRN Reason: Hypo-perfusion Atropine Sulfate (Atropine 0.1 Mg/Ml) 1 mg IVPUSH ASDIRECTED PRN PRN Reason: Hypo-Perfusion Bisacodyl (Dulcolax) 10 mg RECTAL DAILY PRN PRN Reason: Constipation Celecoxib (Celebrex) 200 mg PO DAILY [facility] Last Admin: 04/17/19 20:52 Dose: 200 mg Dextrose/Water (Dextrose 50% In Water) 50 ml IVPUSH ASDIRECTED PRN PRN Reason: Hypoglycemia Diphenhydramine HCl (Benadryl) 25 - 50 mg PO Q6H PRN PRN Reason: Itching Docusate Sodium (Colace) 100 mg PO BID PRN PRN Reason: Constipation Epinephrine HCl (Epinephrine 1:10,000) 1 mg IVPUSH ASDIRECTED PRN PRN Reason: ACLS Guidelines Fentanyl (Sublimaze) 50 mcg IVPUSH Q5M PRN PRN Reason: Pain Finasteride (Proscar) 5 mg PO DAILY [facility] Last Admin: 04/17/19 11:14 Dose: Admin: 04/16/19 08:06 Dose: 5 mg Pantoprazole Sodium 40 mg/ (Sodium Chloride) 10 mls @ 300 mls/hr IV Q12HR [facility] Last Admin: 04/17/19 20:48 Dose: 300 mls/hr Infusion: 04/17/19 10:19 Dose: 300 mls/hr Admin: 04/17/19 10:17 Dose: 300 mls/hr Infusion: 04/16/19 20:34 Dose: 300 mls/hr Admin: 04/16/19 20:32 Dose: 300 mls/hr Infusion: 04/16/19 08:12 Dose: 300 mls/hr Admin: 04/16/19 08:10 Dose: 300 mls/hr Infusion: 04/15/19 21:34 Dose: 300 mls/hr Admin: 04/15/19 21:32 Dose: 300 mls/hr Ropivacaine 49.25 ml/Ketorolac Tromethamine 30 mg/Epinephrine HCl 0.5 mg/ Clonidine HCl 80 mcg/ Sodium Chloride 75 mls @ 50 mls/sec INJECT ASDIRECTED [facility] Magnesium Sulfate 2 gm/ Premix 50 mls @ 50 mls/hr IV ONETIME ONE Stop: 04/18/19 08:44 Insulin Aspart (Novolog) 0 unit SUBCUT TIDAC [facility]; Protocol Last Admin: 04/18/19 07:01 Dose: Not Given Admin: 04/17/19 17:18 Dose: Naloxone HCl (Narcan) 0.04 mg IVPUSH Q3M PRN PRN Reason: Respiratory Depression Naloxone HCl (Narcan) 0.04 mg IVPUSH Q3M PRN PRN Reason: Respiratory Depression Naloxone HCl (Narcan) 0.1 mg IVPUSH ASDIRECTED PRN PRN Reason: Respiratory Depression Ondansetron HCl (Zofran) 4 mg IVPUSH Q6H PRN PRN Reason: Nausea/Vomiting Last Admin: 04/18/19 05:36 Dose: 4 mg Polyethylene Glycol (Miralax) 17 gm PO DAILY [facility] Rosuvastatin Calcium (Crestor) 5 mg PO DAILY [facility] Last Admin: 04/17/19 11:13 Dose: Admin: 04/16/19 08:08 Dose: 5 mg Sodium Chloride (Saline Flush) 10 ml FLUSH ASDIRECTED PRN PRN Reason: Keep Vein Open Sodium Chloride (Saline Flush) 2.5 ml FLUSH ASDIRECTED PRN PRN Reason: Keep Vein Open Sodium Phosphate (Neutra-Phos) 250 mg PO QID [facility] Last Admin: 04/18/19 05:32 Dose: 250 mg Admin: 04/18/19 00:19 Dose: 250 mg Admin: 04/17/19 18:28 Dose: 250 mg Tramadol HCl (Ultram) 50 - 100 mg PO Q6H PRN PRN Reason: Pain Last Admin: 04/18/19 03:57 Dose: 50 mg Admin: 04/17/19 21:39 Dose: 50 mg Warfarin Sodium (Coumadin) 10 mg PO Q24H [facility] - Assessment Assessment (Free Text/Narrative):: s/p LEFT total hip arthroplasty - Plan Plan (Free Text/Narrative):: Gurinder did well overnight s/p Left SALUD. Pain controlled. No N/V. Eating breakfast this morning without N/V. Voiding (power catheter was removed yesterday in PACU). Afebrile. Hg stable at 13.5. Surgical Dressing CDI. Removed and incision well approximated with no erythema and no active drainage. Large AquaCell dressing applied. NV exam intact to LLE. Ancef 2gm IV q8h was ordered/administered. DVT prophylaxis : coumadin resumed yesterday. 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 Spoke with hospitalist this morning, whom is planning to start Lovenox d/t subtherapeutic INR of 1.18 this morning. Hospitalist will also consult with pharmacist for management of Coumadin. Pain well controlled with [place] 10mg. Discussed with Gurinder that he will have PT today. He is WBAT with use of walker. He has a walker at home. Discharge plan : do not anticipate d/c home today d/t starting PT and medical management of chronic medical history.
[2019-04-18] MEDS: Pantoprazole 40 MG in Sodium Chloride 0.9% 10 ML IV SCH (08:35)
--- NOTE | 2019-04-18 08:36 | PCM48HPAN ---
Post Anesthesia Note - EVALUATION WITHIN 48HRS OF ANESTHETIC Vital Signs in Normal Range: Yes Patient Participated in Evaluation: Yes Respiratory Function Stable: Yes Airway Patent: Yes Cardiovascular Function Stable: Yes Hydration Status Stable: Yes Pain Control Satisfactory: Yes Nausea and Vomiting Control Satisfactory: Yes Mental Status Recovered: Yes Vital Signs: Last Vital Signs Temp 37.3 C 04/18/19 05:44 Pulse 76 04/18/19 03:45 Resp 18 04/18/19 03:45 BP 156/76 H 04/18/19 03:45 Pulse Ox 98 04/18/19 03:45 - COMMENTS/OBSERVATIONS Free Text/Narrative:: The patient is oriented x3 to person, place, time. Has no complaints at this time. There were no apparent anesthetic complications at this time.
[2019-04-18] MEDS: Rosuvastatin 10 MG Tab PO SCH (08:38)
[2019-04-18] MEDS: Finasteride 5 MG Tab PO SCH (08:39)
[2019-04-18] MEDS: Celecoxib 100 MG Cap PO SCH (08:39)
[2019-04-18] MEDS: amLODIPine 5 MG Tab PO SCH (08:40)
[2019-04-18] MEDS: Polyethylene Glycol 3350 Powder 17 GM Packet PO SCH (08:41)
[2019-04-18] MEDS: Docusate Sodium 100 MG Cap PO SCH ×2 (10:09→21:01)
[2019-04-18] MEDS ORDERED: Warfarin 10 MG Tab PO ONE (14:00)
[2019-04-18] MEDS ORDERED: Warfarin 10 MG Tab PO SCH (14:00)
[2019-04-18] MEDS: Enoxaparin 100 MG/1 ML Syringe SUBCUT SCH (21:01)
[2019-04-18] MEDS ORDERED: Potassium Chloride 20 MEQ Tab.ER PO ONE (22:03)
--- NOTE | 2019-04-19 | CONS ---
DATE OF CONSULTATION: DATE OF : 1955 PRIMARY CARE PHYSICIAN: None PCP REASON FOR CONSULTATION: Preop for hip surgery and PVCs. I do not have the cardiac history for this patient. He has been followed by a bell clerk out of town in [place]. HISTORY OF PRESENT ILLNESS: This is a 64-year-old male who had a history of peripheral vascular disease with left iliac artery stenting as well as bypass graft in 2007. He has been on warfarin. He had fallen today. It was deemed due to mechanical fall when he slipped on the ice. The x-ray showed displaced femoral neck fracture; however, the telemetry showed frequent PVCs, and cardiology consult was asked. PAST MEDICAL HISTORY: Includes peripheral vascular disease, status post left lower extremity bypass graft as well as stenting, on Coumadin. He denied a history of heart attack or heart stenting. He did not remember that he had a stress test done recently or before. He also denied history of a heart failure. However, prior to his fall, his physical activity seemed to be decent. He could walk up and down stairs, 1 to 2 flights, without shortness of breath or chest pain. He could still do the housework. He also denied chest pain or shortness of breath as well. Past medical history includes hypercholesterolemia, hypertension, history of DVT, PE, femoral bypass in 2007, and iliac artery stenting. ALLERGIES: He is allergic to propoxyphene. MEDICATIONS: Home medications include Coumadin 10 mg once a day, Cardura 8 mg once a day, Prevacid 30 mg once a day, Crestor 5 mg once a day, and amlodipine 10 mg once a day. SOCIAL HISTORY: He was a former smoker. No drug use. No alcoholic consumption. REVIEW OF SYSTEMS: Left hip pain. Otherwise has been negative. PHYSICAL EXAMINATION: VITAL SIGNS: Blood pressure ranging between 130/60 to 150/70, heart rate is 80 to 90 with PVCs, O2 saturation 95% on 2 L, and temperature is 98.2. HEENT: Not pale. No jaundice. No JVD. HEART: Normal S1 and S2, extra heartbeat, no murmur. LUNGS: Clear. No crackle bilaterally. ABDOMEN: Soft and nontender. Bowel sounds are present. No hepatosplenomegaly. LEGS: The left lower extremity has deformity due to fracture of femur. INVESTIGATIONS: Preliminary report showing ejection fraction of 60% to 65%, however, this study was suboptimal. I did not appreciate an aortic stenosis. At least, he has mild mitral regurgitation, very mild; however, technically inadequate. EKG was done on April 17, 2019. Sinus rhythm, heart rate 74, MS interval 141, QRS duration 100. No PVC noted. ASSESSMENT AND PLAN: This is a 64-year-old male, history of peripheral vascular disease, status post bypass and stenting, hypertension, hyperlipidemia, former smoker, presented to the hospital with left hip fracture, with frequent PVCs. His echocardiogram shows grossly preserved ejection fraction. However, the study was suboptimal. I did not appreciate any significant aortic stenosis. His physical capacity, functional capacity, seemed to be more than 4 METS at least before he had a fracture. He also denied history of chest pain, shortness of breath as well. I would say due to the urgent nature he should go ahead and have the surgery performed rather than waiting to have the stress test to be done, also I would say his risk for the surgery is moderate, but at least he could probably tolerate the surgery okay with the fact that his functional capacity seemed to be more than 4 METS reportedly. Regarding the frequent PVC, at least his blood pressure is stable. That could be worked up as an outpatient. ZAIRA / RODRI /[id number]
[2019-04-19] MEDS: Phosphorus #1 250 MG Tab PO SCH ×2 (00:02→06:28)
[2019-04-19] MEDS: Acetaminophen/HYDROcodone 325-10 MG Tab PO PRN ×2 (03:23→09:30)
[2019-04-19] MEDS: Ondansetron 4 MG/2 ML SDV IVPUSH PRN (03:23)
[2019-04-19 06:23] LABS: CARBON DIOXIDE,CO2 29.9 mmol/L (21.0-32.0); POTASSIUM,K 4.2 mmol/L (3.5-5.1)
[2019-04-19] MEDS: Pantoprazole 40 MG Tab.CR PO SCH (06:30)
[2019-04-19] MEDS: Insulin Aspart 100 Units/ML 3 ML Pen SUBCUT SCH ×3 (06:43→17:17)
[2019-04-19] MEDS: Docusate Sodium 100 MG Cap PO SCH ×2 (08:22→20:06)
[2019-04-19] MEDS: amLODIPine 5 MG Tab PO SCH (08:22)
[2019-04-19] MEDS: Polyethylene Glycol 3350 Powder 17 GM Packet PO SCH (08:22)
[2019-04-19] MEDS: Finasteride 5 MG Tab PO SCH (08:22)
[2019-04-19] MEDS: Rosuvastatin 10 MG Tab PO SCH (08:23)
[2019-04-19] MEDS: Enoxaparin 100 MG/1 ML Syringe SUBCUT SCH ×2 (08:24→20:06)
--- NOTE | 2019-04-19 08:43 | PCM.PN ---
- General Info Date of Service: 04/19/19 Admission Dx/Problem (Free Text): Admission Diagnosis/Problem Admission Diagnosis/Problem Subcapital fracture of left femur Subjective Update: Feeling ok this morning, having pain to L. No chest pain or SOB. No abdominal pain. No dysuria. Functional Status: Reports: Tolerating Diet, Ambulating, Urinating. Denies: Pain Controlled - Review of Systems HEENT: Reports: No Symptoms. Denies: Headaches, Sore Throat Pulmonary: Reports: No Symptoms. Denies: Shortness of Breath Cardiovascular: Reports: No Symptoms. Denies: Chest Pain Gastrointestinal: Reports: No Symptoms. Denies: Abdominal Pain, Nausea, Vomiting Genitourinary: Reports: No Symptoms. Denies: Dysuria, Frequency Musculoskeletal: Reports: Leg Pain (Left leg) Neurological: Reports: No Symptoms Psychiatric: Reports: No Symptoms - Patient Data Vitals - Most Recent: Last Vital Signs Temp 98.1 F 04/19/19 07:20 Pulse 76 04/19/19 07:20 Resp 18 04/19/19 07:20 BP 108/65 04/19/19 08:22 Pulse Ox 94 L 04/19/19 07:20 Weight - Most Recent: 99.79 kg I&O - Last 24 Hours: Intake & Output 04/18/19 04/19/19 04/19/19 22:59 06:59 14:59 Intake Total 1200 1300 Output Total 475 800 Balance 725 500 Lab Results Last 24 Hours: Laboratory Results - last 24 hr 04/18/19 04/18/19 04/19/19 Range/Units 11:10 17:05 05:15 WBC 8.18 (4.0-11.0) K/uL RBC 4.29 L (4.50-5.90) M/uL Hgb 12.3 L (13.0-17.0) g/dL Hct 37.5 L (38.0-50.0) % MCV 87.4 (80.0-98.0) fL MCH 28.7 (27.0-32.0) pg MCHC 32.8 (31.0-37.0) g/dL RDW Std Deviation 47.4 (28.0-62.0) fl RDW Coeff of Marilee 15 (11.0-15.0) % Plt Count 239 (150-400) K/uL MPV 10.30 (7.40-12.00) fL Neut % (Auto) 76.1 (48.0-80.0) % Lymph % (Auto) 7.9 L (16.0-40.0) % Addison % (Auto) 13.4 (0.0-15.0) % Eos % (Auto) 2.2 (0.0-7.0) % Baso % (Auto) 0.4 (0.0-1.5) % Neut # (Auto) 6.2 H (1.4-5.7) K/uL Lymph # (Auto) 0.7 (0.6-2.4) K/uL Addison # (Auto) 1.1 H (0.0-0.8) K/uL Eos # (Auto) 0.2 (0.0-0.7) K/uL Baso # (Auto) 0.0 (0.0-0.1) K/uL Nucleated RBC % 0.0 /100WBC Nucleated RBCs # 0 K/uL INR Sodium (136-148) mmol/L Potassium (3.5-5.1) mmol/L Chloride (98-107) mmol/L Carbon Dioxide (21.0-32.0) mmol/L BUN (7.0-18.0) mg/dL Creatinine (0.8-1.3) mg/dL Est Cr Clr Drug Dosing mL/min Estimated GFR (MDRD) ml/min Glucose (74-106) mg/dL POC Glucose 144 H 149 H (60-110) mg/dL Calcium (8.5-10.1) mg/dL Phosphorus (2.6-4.7) mg/dL Magnesium (1.8-2.4) mg/dL 04/19/19 04/19/19 04/19/19 Range/Units 05:15 05:15 06:10 WBC (4.0-11.0) K/uL RBC (4.50-5.90) M/uL Hgb (13.0-17.0) g/dL Hct (38.0-50.0) % MCV (80.0-98.0) fL MCH (27.0-32.0) pg MCHC (31.0-37.0) g/dL RDW Std Deviation (28.0-62.0) fl RDW Coeff of Marilee (11.0-15.0) % Plt Count (150-400) K/uL MPV (7.40-12.00) fL Neut % (Auto) (48.0-80.0) % Lymph % (Auto) (16.0-40.0) % Addison % (Auto) (0.0-15.0) % Eos % (Auto) (0.0-7.0) % Baso % (Auto) (0.0-1.5) % Neut # (Auto) (1.4-5.7) K/uL Lymph # (Auto) (0.6-2.4) K/uL Addison # (Auto) (0.0-0.8) K/uL Eos # (Auto) (0.0-0.7) K/uL Baso # (Auto) (0.0-0.1) K/uL Nucleated RBC % /100WBC Nucleated RBCs # K/uL INR 1.54 Sodium 141 (136-148) mmol/L Potassium 4.2 (3.5-5.1) mmol/L Chloride 104 (98-107) mmol/L Carbon Dioxide 29.9 (21.0-32.0) mmol/L BUN 29 H (7.0-18.0) mg/dL Creatinine 1.4 H (0.8-1.3) mg/dL Est Cr Clr Drug Dosing 57.52 mL/min Estimated GFR (MDRD) 51.2 ml/min Glucose 138 H (74-106) mg/dL POC Glucose 124 H (60-110) mg/dL Calcium 8.1 L (8.5-10.1) mg/dL Phosphorus 3.3 (2.6-4.7) mg/dL Magnesium 2.1 (1.8-2.4) mg/dL Med Orders - Current: Current Medications Hydrocodone Bitart/Acetaminophen ([place] 325-10 Mg) 1 tab PO Q6H PRN PRN Reason: Pain Last Admin: 04/19/19 03:23 Dose: 1 tab Al Hydroxide/Mg Hydroxide (Mag-Al Plus) 30 ml PO Q4H PRN PRN Reason: Indigestion Albuterol/Ipratropium (Duoneb 3.0-0.5 Mg/3 Ml) 3 ml NEB Q4HRRT PRN PRN Reason: Shortness Of Breath/wheezing Last Admin: 04/16/19 21:18 Dose: 3 ml Amlodipine Besylate (Norvasc) 10 mg PO DAILY [facility] Last Admin: 04/19/19 08:22 Dose: 10 mg Bisacodyl (Dulcolax) 10 mg RECTAL DAILY PRN PRN Reason: Constipation Diphenhydramine HCl (Benadryl) 25 - 50 mg PO Q6H PRN PRN Reason: Itching Docusate Sodium (Colace) 100 mg PO BID [facility] Last Admin: 04/19/19 08:22 Dose: 100 mg Enoxaparin Sodium (Lovenox) 100 mg SUBCUT Q12H [facility] Last Admin: 04/19/19 08:24 Dose: 100 mg Finasteride (Proscar) 5 mg PO DAILY [facility] Last Admin: 04/19/19 08:22 Dose: 5 mg Insulin Aspart (Novolog) 0 unit SUBCUT TIDAC [facility]; Protocol Last Admin: 04/19/19 06:43 Dose: Not Given Naloxone HCl (Narcan) 0.04 mg IVPUSH Q3M PRN PRN Reason: Respiratory Depression Ondansetron HCl (Zofran) 4 mg IVPUSH Q6H PRN PRN Reason: Nausea/Vomiting Last Admin: 04/19/19 03:23 Dose: 4 mg Pantoprazole Sodium (Protonix) 40 mg PO ACBREAKFAST [facility] Last Admin: 04/19/19 06:30 Dose: 40 mg Polyethylene Glycol (Miralax) 17 gm PO DAILY [facility] Last Admin: 04/19/19 08:22 Dose: 17 gm Rosuvastatin Calcium (Crestor) 5 mg PO DAILY [facility] Last Admin: 04/19/19 08:23 Dose: 5 mg Sodium Chloride (Saline Flush) 10 ml FLUSH ASDIRECTED PRN PRN Reason: Keep Vein Open Sodium Chloride (Saline Flush) 2.5 ml FLUSH ASDIRECTED PRN PRN Reason: Keep Vein Open Last Admin: 04/18/19 14:40 Dose: 2.5 ml Tramadol HCl (Ultram) 50 - 100 mg PO Q6H PRN PRN Reason: Pain Last Admin: 04/18/19 03:57 Dose: 50 mg Discontinued Medications Hydrocodone Bitart/Acetaminophen ([place] 325-10 Mg) 1 - 2 tab PO Q6H PRN PRN Reason: Pain Last Admin: 04/18/19 05:32 Dose: 2 tab Albuterol (Proventil Neb Soln) 2.5 mg NEB ONETIME PRN PRN Reason: Wheezing Last Admin: 04/17/19 16:45 Dose: 2.5 mg Atropine Sulfate (Atropine 0.1 Mg/Ml) 0.5 mg IVPUSH ASDIRECTED PRN PRN Reason: Hypo-perfusion Atropine Sulfate (Atropine 0.1 Mg/Ml) 1 mg IVPUSH ASDIRECTED PRN PRN Reason: Hypo-Perfusion Bupivacaine HCl (Sensorcaine-Mpf 0.5%) Confirm Administered Dose 10 ml .ROUTE .STK-MED ONE Stop: 04/15/19 17:46 Bupivacaine HCl (Marcaine 0.5%) Confirm Administered Dose 30 ml .ROUTE .STK-MED ONE Stop: 04/15/19 17:49 Cefazolin Sodium/Dextrose (Ancef) Confirm Administered Dose 2 gm IV .STK-MED ONE Stop: 04/17/19 13:05 Celecoxib (Celebrex) 200 mg PO DAILY [facility] Last Admin: 04/18/19 08:39 Dose: 200 mg Dextrose/Water (Dextrose 50% In Water) 50 ml IVPUSH ASDIRECTED PRN PRN Reason: Hypoglycemia Diphenhydramine HCl (Benadryl) 25 mg IVPUSH Q6H PRN PRN Reason: Itching Diphenhydramine HCl (Benadryl) 25 mg PO Q6H PRN PRN Reason: Itching Diphenhydramine HCl (Benadryl) 25 mg IVPUSH Q6H PRN PRN Reason: Itching Diphenhydramine HCl (Benadryl) 25 mg PO Q6H PRN PRN Reason: Itching Docusate Sodium (Colace) 100 mg PO DAILY [facility] Last Admin: 04/17/19 11:12 Dose: Not Given Docusate Sodium (Colace) 100 mg PO BID PRN PRN Reason: Constipation Epinephrine HCl (Epinephrine 1:10,000) 1 mg IVPUSH ASDIRECTED PRN PRN Reason: ACLS Guidelines Fentanyl (Fentanyl) 50 mcg IVPUSH ONETIME ONE Stop: 04/15/19 16:11 Last Admin: 04/15/19 16:25 Dose: 50 mcg Fentanyl (Sublimaze) Confirm Administered Dose 100 mcg .ROUTE .STK-MED ONE Stop: 04/15/19 16:17 Last Admin: 04/15/19 16:27 Dose: Not Given Fentanyl (Sublimaze) Confirm Administered Dose 100 mcg .ROUTE .STK-MED ONE Stop: 04/17/19 12:26 Fentanyl (Sublimaze) Confirm Administered Dose 100 mcg .ROUTE .STK-MED ONE Stop: 04/17/19 13:22 Fentanyl (Sublimaze) 50 mcg IVPUSH Q5M PRN PRN Reason: Pain Hydromorphone HCl (Dilaudid) 1 mg IVPUSH ONETIME ONE Stop: 04/15/19 17:41 Last Admin: 04/15/19 17:49 Dose: 1 mg Sodium Chloride (Normal Saline) 1,000 mls @ 125 mls/hr IV ASDIRECTED [facility] Last Admin: 04/17/19 12:46 Dose: 125 mls/hr Pantoprazole Sodium 40 mg/ (Sodium Chloride) 10 mls @ 300 mls/hr IV Q12HR [facility] Last Admin: 04/18/19 08:35 Dose: 300 mls/hr Magnesium Sulfate 2 gm/ Premix 50 mls @ 50 mls/hr IV ONETIME ONE Stop: 04/16/19 04:35 Last Admin: 04/16/19 04:35 Dose: 50 mls/hr Cefazolin Sodium/Dextrose 2 gm (/ Premix) 50 mls @ 100 mls/hr IV ONETIME ONE Stop: 04/17/19 08:59 Last Admin: 04/17/19 08:35 Dose: 100 mls/hr Ropivacaine 49.25 ml/Ketorolac Tromethamine 30 mg/Epinephrine HCl 0.5 mg/ Clonidine HCl 80 mcg/ Sodium Chloride 75 mls @ 50 mls/sec INJECT ASDIRECTED [facility] Tranexamic Acid 1,000 mg/ (Sodium Chloride) 110 mls @ 600 mls/hr IV ASDIRECTED ONE Stop: 04/17/19 13:10 Last Admin: 04/17/19 17:09 Dose: Not Given Cefazolin Sodium/Dextrose 2 gm (/ Premix) 50 mls @ 100 mls/hr IV Q8H [facility] Stop: 04/18/19 05:29 Last Admin: 04/18/19 05:06 Dose: 100 mls/hr Magnesium Sulfate 2 gm/ Premix 50 mls @ 50 mls/hr IV ONETIME ONE Stop: 04/18/19 08:44 Last Admin: 04/18/19 08:25 Dose: 50 mls/hr Lidocaine HCl (Xylocaine 1%) Confirm Administered Dose 20 ml .ROUTE .STK-MED ONE Stop: 04/15/19 17:46 Lidocaine HCl (Xylocaine-Mpf 1%) Confirm Administered Dose 5 ml .ROUTE .STK-MED ONE Stop: 04/17/19 12:26 Lidocaine HCl (Xylocaine-Mpf 1%) Confirm Administered Dose 5 ml .ROUTE .STK-MED ONE Stop: 04/17/19 15:29 Midazolam HCl (Versed 1 Mg/Ml) Confirm Administered Dose 2 mg .ROUTE .STK-MED ONE Stop: 04/17/19 12:26 Midazolam HCl (Versed 1 Mg/Ml) Confirm Administered Dose 2 mg .ROUTE .STK-MED ONE Stop: 04/17/19 16:22 Midazolam HCl (Versed 1 Mg/Ml) Confirm Administered Dose 2 mg .ROUTE .STK-MED ONE Stop: 04/17/19 16:28 Morphine Sulfate (Morphine) 4 mg IVPUSH ONETIME ONE Stop: 04/15/19 14:31 Last Admin: 04/15/19 14:44 Dose: 4 mg Morphine Sulfate (Morphine) 2 mg IVPUSH Q4H PRN PRN Reason: Pain (severe 7-10) Stop: 04/16/19 16:52 Last Admin: 04/15/19 19:59 Dose: 2 mg Morphine Sulfate (Morphine Color Strainer 30 Mg In 30 Ml) 0 mg IV ASDIRECTED [facility]; Protocol Last Admin: 04/16/19 05:50 Dose: 30 mg Morphine Sulfate (Morphine Color Strainer 30 Mg In 30 Ml) 0 mg IV ASDIRECTED [facility]; Protocol Last Admin: 04/17/19 05:15 Dose: 30 mg Naloxone HCl (Narcan) 0.04 mg IVPUSH Q3M PRN PRN Reason: Respiratory Depression Naloxone HCl (Narcan) 0.1 mg IVPUSH ASDIRECTED PRN PRN Reason: Respiratory Depression Ondansetron HCl (Zofran) 4 mg IVPUSH ONETIME ONE Stop: 04/15/19 14:31 Last Admin: 04/15/19 14:40 Dose: 4 mg Ondansetron HCl (Zofran) 4 mg IVPUSH Q6H PRN PRN Reason: Nausea/Vomiting Ondansetron HCl (Zofran) 4 mg IVPUSH Q6H PRN PRN Reason: Nausea/Vomiting Phenylephrine HCl (Jadiel-Synephrine) Confirm Administered Dose 10 mg .ROUTE .STK- MED ONE Stop: 04/17/19 12:26 Phenylephrine HCl (Phenylephrine In Ns 100 Mcg/Ml) Confirm Administered Dose 1 mg .ROUTE .STK-MED ONE Stop: 04/17/19 14:41 Potassium Chloride (Klor-Con M20) 20 meq PO ONETIME ONE Stop: 04/18/19 22:04 Last Admin: 04/18/19 22:53 Dose: 20 meq Propofol (Diprivan 20 Ml) Confirm Administered Dose 400 mg .ROUTE .STK-MED ONE Stop: 04/17/19 12:26 Propofol (Diprivan 20 Ml) Confirm Administered Dose 400 mg .ROUTE .STK-MED ONE Stop: 04/17/19 14:02 Propofol (Diprivan 20 Ml) Confirm Administered Dose 200 mg .ROUTE .STK-MED ONE Stop: 04/17/19 14:10 Sodium Phosphate (Neutra-Phos) 250 mg PO QID [facility] Last Admin: 04/19/19 06:28 Dose: 250 mg Tranexamic Acid (Cyklokapron) Confirm Administered Dose 1,000 mg .ROUTE .STK- MED ONE Stop: 04/17/19 12:45 Warfarin Sodium (Coumadin) 20 mg PO ONETIME ONE Stop: 04/17/19 21:01 Last Admin: 04/17/19 20:55 Dose: 20 mg Warfarin Sodium (Coumadin) 10 mg PO Q24H [facility] Warfarin Sodium (Coumadin Ask) 1 each PO ONETIME ONE Stop: 04/18/19 09:19 Last Admin: 04/18/19 11:36 Dose: Not Given Warfarin Sodium (Coumadin) 10 mg PO ONETIME ONE Stop: 04/18/19 14:01 Last Admin: 04/18/19 14:42 Dose: 10 mg - Exam Quality Assessment: DVT Prophylaxis. No: Supplemental Oxygen General: Alert, Oriented, Cooperative, No Acute Distress Lungs: Clear to Auscultation, Normal Respiratory Effort Cardiovascular: Regular Rate, Regular Rhythm GI/Abdominal Exam: Normal Bowel Sounds, Soft, Non-Tender Extremities: Normal Inspection, Normal Range of Motion, Non-Tender, No Pedal Edema Wound/Incisions: Dressing Dry and Intact Neurological: No New Focal Deficit Psy/Mental Status: Alert, Normal Affect, Normal Mood Sepsis Event Note - Evaluation Sepsis Screening Result: No Definite Risk - Focused Exam Vital Signs: Vital Signs Temp Pulse Resp BP BP Pulse Ox 04/19/19 08:22 108/65 04/19/19 07:20 98.1 F 76 18 108/65 94 L 04/19/19 02:34 100.0 F 73 18 149/73 H 93 L 04/19/19 00:00 99.7 F 04/18/19 22:56 100.2 F 89 20 90/60 90 L Date Exam was Performed: 04/19/19 Time Exam was Performed: 09:29 - Problem List & Annotations (1) Subcapital fracture of neck of left femur SNOMED Code(s): 224630535 Code(s): S72.012A - UNSP INTRACAPSULAR FRACTURE OF LEFT FEMUR, INIT FOR CLOS FX Status: Acute Current Visit: Yes Qualifiers: Encounter type: initial encounter Fracture type: closed Qualified Code(s) : S72.012A - Unspecified intracapsular fracture of left femur, initial encounter for closed fracture (2) Chronic anticoagulation SNOMED Code(s): 154491870 Code(s): Z79.01 - ASSISTED (CURRENT) USE OF ANTICOAGULANTS Status: Chronic Current Visit: No (3) Dyslipidemia SNOMED Code(s): 070027682 Code(s): E78.5 - HYPERLIPIDEMIA, UNSPECIFIED Status: Chronic Current Visit: No (4) HTN (hypertension) SNOMED Code(s): 90481684 Code(s): I10 - ESSENTIAL (PRIMARY) HYPERTENSION Status: Chronic Current Visit: No Qualifiers: Hypertension type: essential hypertension Qualified Code(s): I10 - Essential (primary) hypertension (5) PAD (peripheral artery disease) SNOMED Code(s): 977469148 Code(s): I73.9 - PERIPHERAL VASCULAR DISEASE, UNSPECIFIED Status: Chronic Current Visit: No (6) New onset type 2 diabetes mellitus SNOMED Code(s): 74896352 Code(s): E11.9 - TYPE 2 DIABETES MELLITUS WITHOUT COMPLICATIONS Status: Acute Current Visit: Yes (7) GLENNA (acute kidney injury) SNOMED Code(s): 59910237, 76780591 Code(s): N17.9 - ACUTE KIDNEY FAILURE, UNSPECIFIED Status: Acute Current Visit: Yes - Problem List Review Problem List Initiated/Reviewed/Updated: Yes - My Orders Last 24 Hours: My Active Orders 04/18/19 09:30 Docusate Sodium [Colace] 100 mg PO BID 04/18/19 10:29 Consult to Diabetic Nurse Specialist [CONS] Routine 04/18/19 11:10 Blood Glucose Check, Bedside [RC] TIDMEALS 04/18/19 21:00 Enoxaparin [Lovenox] 100 mg SUBCUT Q12H 04/19/19 07:30 Pantoprazole [ProTONIX] 40 mg PO ACBREAKFAST 04/19/19 07:47 Intake and Output [RC] QSHIFT 04/19/19 07:48 Bladder Scan [RC] STAT 04/19/19 08:45 Sodium Chloride 0.9% [Normal Saline] 1,000 ml IV Q6H 04/20/19 05:11 BASIC METABOLIC PANEL,BMP [CHEM] AM CBC WITH AUTO DIFF [HEME] AM MAGNESIUM [CHEM] AM PHOSPHORUS [CHEM] AM - Plan Plan:: This 64 year old male admitted for left femoral fracture, has significant hx of PAD with grafting and stenting to lower extremities and on Coumadin for anticoagulation. 1. L femoral fracture: - Pain control per Orthopedics - Restarted Coumadin, bridge with Lovenox. Monitor INR daily - Continue bowel regimen 2. GLENNA: - BUN and Cr elevated today. Monitor. - Bladder scan negative. - possible dehydration, will give 1 L NS today, encourage PO intake. - Recheck in am. 3. HTN: - Some mild hypotension overnight, dehydration, monitor today. May have caused GLENNA. - Continue antihypertensive, Amlodipine. On telemetry. 4. PAD - Continue Coumadin today, INR 1.5. Continue Lovenox bridge therapy. - Consult Pharmacy for Coumadin therapy. 5. New onset DM type 2: - DM educator consult this afternoon to allow for patient to be more alert and less sedated from pain meds for education. - Novolog SSI with meals. - Likely DC home on Metformin. VTE prophylaxis: Coumadin, Lovenox GI prophylaxis: Protonix IV Code status: FULL Code
[2019-04-19] MEDS ORDERED: Sodium Chloride 0.9% 1,000 ML IV SCH (08:45)
--- NOTE | 2019-04-19 08:45 | PCM.SURGPN ---
- General Info Date of Service: 04/19/19 (829) Date of Surgery/Procedure: 04/17/19 POD#: 2 Post-Op Diagnosis: s/p LEFT total hip arthroplasty Admission Diagnosis/Problem: Fracture of femur Functional Status: Reports: Pain Controlled (concerned that he is still having pain), Tolerating Diet, Ambulating (OOB into chair this morning. Ambulated last evening with nursing staff to doorway (per pt)), Urinating - Review of Systems General: Reports: No Symptoms. Denies: Fever Gastrointestinal: Denies: Nausea, Vomiting Musculoskeletal: Reports: Other (post-operative left hip pain) Neurological: Reports: No Symptoms - Patient Data Vitals - Most Recent: Last Vital Signs Temp 36.7 C 04/19/19 07:20 Pulse 76 04/19/19 07:20 Resp 18 04/19/19 07:20 BP 108/65 04/19/19 08:22 Pulse Ox 94 L 04/19/19 07:20 Weight - Most Recent: 99.79 kg I&O - Last 24 Hours: Intake & Output 04/18/19 04/19/19 04/19/19 22:59 06:59 14:59 Intake Total 1200 1300 Output Total 475 800 Balance 725 500 Lab Results Last 24 Hrs: Laboratory Results - last 24 hr 04/18/19 04/18/19 04/19/19 Range/Units 11:10 17:05 05:15 WBC 8.18 (4.0-11.0) K/uL RBC 4.29 L (4.50-5.90) M/uL Hgb 12.3 L (13.0-17.0) g/dL Hct 37.5 L (38.0-50.0) % MCV 87.4 (80.0-98.0) fL MCH 28.7 (27.0-32.0) pg MCHC 32.8 (31.0-37.0) g/dL RDW Std Deviation 47.4 (28.0-62.0) fl RDW Coeff of Marilee 15 (11.0-15.0) % Plt Count 239 (150-400) K/uL MPV 10.30 (7.40-12.00) fL Neut % (Auto) 76.1 (48.0-80.0) % Lymph % (Auto) 7.9 L (16.0-40.0) % [place] % (Auto) 13.4 (0.0-15.0) % Eos % (Auto) 2.2 (0.0-7.0) % Baso % (Auto) 0.4 (0.0-1.5) % Neut # (Auto) 6.2 H (1.4-5.7) K/uL Lymph # (Auto) 0.7 (0.6-2.4) K/uL [place] # (Auto) 1.1 H (0.0-0.8) K/uL Eos # (Auto) 0.2 (0.0-0.7) K/uL Baso # (Auto) 0.0 (0.0-0.1) K/uL Nucleated RBC % 0.0 /100WBC Nucleated RBCs # 0 K/uL INR Sodium (136-148) mmol/L Potassium (3.5-5.1) mmol/L Chloride (98-107) mmol/L Carbon Dioxide (21.0-32.0) mmol/L BUN (7.0-18.0) mg/dL Creatinine (0.8-1.3) mg/dL Est Cr Clr Drug Dosing mL/min Estimated GFR (MDRD) ml/min Glucose (74-106) mg/dL POC Glucose 144 H 149 H (60-110) mg/dL Calcium (8.5-10.1) mg/dL Phosphorus (2.6-4.7) mg/dL Magnesium (1.8-2.4) mg/dL 04/19/19 04/19/19 04/19/19 Range/Units 05:15 05:15 06:10 WBC (4.0-11.0) K/uL RBC (4.50-5.90) M/uL Hgb (13.0-17.0) g/dL Hct (38.0-50.0) % MCV (80.0-98.0) fL MCH (27.0-32.0) pg MCHC (31.0-37.0) g/dL RDW Std Deviation (28.0-62.0) fl RDW Coeff of Marilee (11.0-15.0) % Plt Count (150-400) K/uL MPV (7.40-12.00) fL Neut % (Auto) (48.0-80.0) % Lymph % (Auto) (16.0-40.0) % [place] % (Auto) (0.0-15.0) % Eos % (Auto) (0.0-7.0) % Baso % (Auto) (0.0-1.5) % Neut # (Auto) (1.4-5.7) K/uL Lymph # (Auto) (0.6-2.4) K/uL [place] # (Auto) (0.0-0.8) K/uL Eos # (Auto) (0.0-0.7) K/uL Baso # (Auto) (0.0-0.1) K/uL Nucleated RBC % /100WBC Nucleated RBCs # K/uL INR 1.54 Sodium 141 (136-148) mmol/L Potassium 4.2 (3.5-5.1) mmol/L Chloride 104 (98-107) mmol/L Carbon Dioxide 29.9 (21.0-32.0) mmol/L BUN 29 H (7.0-18.0) mg/dL Creatinine 1.4 H (0.8-1.3) mg/dL Est Cr Clr Drug Dosing 57.52 mL/min Estimated GFR (MDRD) 51.2 ml/min Glucose 138 H (74-106) mg/dL POC Glucose 124 H (60-110) mg/dL Calcium 8.1 L (8.5-10.1) mg/dL Phosphorus 3.3 (2.6-4.7) mg/dL Magnesium 2.1 (1.8-2.4) mg/dL Med Orders - Current: Current Medications Hydrocodone Bitart/Acetaminophen ([place] 325-10 Mg) 1 tab PO Q6H PRN PRN Reason: Pain Last Admin: 04/19/19 03:23 Dose: 1 tab Al Hydroxide/Mg Hydroxide (Mag-Al Plus) 30 ml PO Q4H PRN PRN Reason: Indigestion Albuterol/Ipratropium (Duoneb 3.0-0.5 Mg/3 Ml) 3 ml NEB Q4HRRT PRN PRN Reason: Shortness Of Breath/wheezing Last Admin: 04/16/19 21:18 Dose: 3 ml Amlodipine Besylate (Norvasc) 10 mg PO DAILY [facility] Last Admin: 04/19/19 08:22 Dose: 10 mg Bisacodyl (Dulcolax) 10 mg RECTAL DAILY PRN PRN Reason: Constipation Diphenhydramine HCl (Benadryl) 25 - 50 mg PO Q6H PRN PRN Reason: Itching Docusate Sodium (Colace) 100 mg PO BID [facility] Last Admin: 04/19/19 08:22 Dose: 100 mg Enoxaparin Sodium (Lovenox) 100 mg SUBCUT Q12H [facility] Last Admin: 04/19/19 08:24 Dose: 100 mg Finasteride (Proscar) 5 mg PO DAILY [facility] Last Admin: 04/19/19 08:22 Dose: 5 mg Insulin Aspart (Novolog) 0 unit SUBCUT TIDAC [facility]; Protocol Last Admin: 04/19/19 06:43 Dose: Not Given Naloxone HCl (Narcan) 0.04 mg IVPUSH Q3M PRN PRN Reason: Respiratory Depression Ondansetron HCl (Zofran) 4 mg IVPUSH Q6H PRN PRN Reason: Nausea/Vomiting Last Admin: 04/19/19 03:23 Dose: 4 mg Pantoprazole Sodium (Protonix) 40 mg PO ACBREAKFAST [facility] Last Admin: 04/19/19 06:30 Dose: 40 mg Polyethylene Glycol (Miralax) 17 gm PO DAILY [facility] Last Admin: 04/19/19 08:22 Dose: 17 gm Rosuvastatin Calcium (Crestor) 5 mg PO DAILY [facility] Last Admin: 04/19/19 08:23 Dose: 5 mg Sodium Chloride (Saline Flush) 10 ml FLUSH ASDIRECTED PRN PRN Reason: Keep Vein Open Sodium Chloride (Saline Flush) 2.5 ml FLUSH ASDIRECTED PRN PRN Reason: Keep Vein Open Last Admin: 04/18/19 14:40 Dose: 2.5 ml Tramadol HCl (Ultram) 50 - 100 mg PO Q6H PRN PRN Reason: Pain Last Admin: 04/18/19 03:57 Dose: 50 mg Discontinued Medications Hydrocodone Bitart/Acetaminophen ([place] 325-10 Mg) 1 - 2 tab PO Q6H PRN PRN Reason: Pain Last Admin: 04/18/19 05:32 Dose: 2 tab Albuterol (Proventil Neb Soln) 2.5 mg NEB ONETIME PRN PRN Reason: Wheezing Last Admin: 04/17/19 16:45 Dose: 2.5 mg Atropine Sulfate (Atropine 0.1 Mg/Ml) 0.5 mg IVPUSH ASDIRECTED PRN PRN Reason: Hypo-perfusion Atropine Sulfate (Atropine 0.1 Mg/Ml) 1 mg IVPUSH ASDIRECTED PRN PRN Reason: Hypo-Perfusion Bupivacaine HCl (Sensorcaine-Mpf 0.5%) Confirm Administered Dose 10 ml .ROUTE .STK-MED ONE Stop: 04/15/19 17:46 Bupivacaine HCl (Marcaine 0.5%) Confirm Administered Dose 30 ml .ROUTE .STK-MED ONE Stop: 04/15/19 17:49 Cefazolin Sodium/Dextrose (Ancef) Confirm Administered Dose 2 gm IV .STK-MED ONE Stop: 04/17/19 13:05 Celecoxib (Celebrex) 200 mg PO DAILY [facility] Last Admin: 04/18/19 08:39 Dose: 200 mg Dextrose/Water (Dextrose 50% In Water) 50 ml IVPUSH ASDIRECTED PRN PRN Reason: Hypoglycemia Diphenhydramine HCl (Benadryl) 25 mg IVPUSH Q6H PRN PRN Reason: Itching Diphenhydramine HCl (Benadryl) 25 mg PO Q6H PRN PRN Reason: Itching Diphenhydramine HCl (Benadryl) 25 mg IVPUSH Q6H PRN PRN Reason: Itching Diphenhydramine HCl (Benadryl) 25 mg PO Q6H PRN PRN Reason: Itching Docusate Sodium (Colace) 100 mg PO DAILY [facility] Last Admin: 04/17/19 11:12 Dose: Not Given Docusate Sodium (Colace) 100 mg PO BID PRN PRN Reason: Constipation Epinephrine HCl (Epinephrine 1:10,000) 1 mg IVPUSH ASDIRECTED PRN PRN Reason: ACLS Guidelines Fentanyl (Fentanyl) 50 mcg IVPUSH ONETIME ONE Stop: 04/15/19 16:11 Last Admin: 04/15/19 16:25 Dose: 50 mcg Fentanyl (Sublimaze) Confirm Administered Dose 100 mcg .ROUTE .STK-MED ONE Stop: 04/15/19 16:17 Last Admin: 04/15/19 16:27 Dose: Not Given Fentanyl (Sublimaze) Confirm Administered Dose 100 mcg .ROUTE .STK-MED ONE Stop: 04/17/19 12:26 Fentanyl (Sublimaze) Confirm Administered Dose 100 mcg .ROUTE .STK-MED ONE Stop: 04/17/19 13:22 Fentanyl (Sublimaze) 50 mcg IVPUSH Q5M PRN PRN Reason: Pain Hydromorphone HCl (Dilaudid) 1 mg IVPUSH ONETIME ONE Stop: 04/15/19 17:41 Last Admin: 04/15/19 17:49 Dose: 1 mg Sodium Chloride (Normal Saline) 1,000 mls @ 125 mls/hr IV ASDIRECTED [facility] Last Admin: 04/17/19 12:46 Dose: 125 mls/hr Pantoprazole Sodium 40 mg/ (Sodium Chloride) 10 mls @ 300 mls/hr IV Q12HR [facility] Last Admin: 04/18/19 08:35 Dose: 300 mls/hr Magnesium Sulfate 2 gm/ Premix 50 mls @ 50 mls/hr IV ONETIME ONE Stop: 04/16/19 04:35 Last Admin: 04/16/19 04:35 Dose: 50 mls/hr Cefazolin Sodium/Dextrose 2 gm (/ Premix) 50 mls @ 100 mls/hr IV ONETIME ONE Stop: 04/17/19 08:59 Last Admin: 04/17/19 08:35 Dose: 100 mls/hr Ropivacaine 49.25 ml/Ketorolac Tromethamine 30 mg/Epinephrine HCl 0.5 mg/ Clonidine HCl 80 mcg/ Sodium Chloride 75 mls @ 50 mls/sec INJECT ASDIRECTED [facility] Tranexamic Acid 1,000 mg/ (Sodium Chloride) 110 mls @ 600 mls/hr IV ASDIRECTED ONE Stop: 04/17/19 13:10 Last Admin: 04/17/19 17:09 Dose: Not Given Cefazolin Sodium/Dextrose 2 gm (/ Premix) 50 mls @ 100 mls/hr IV Q8H [facility] Stop: 04/18/19 05:29 Last Admin: 04/18/19 05:06 Dose: 100 mls/hr Magnesium Sulfate 2 gm/ Premix 50 mls @ 50 mls/hr IV ONETIME ONE Stop: 04/18/19 08:44 Last Admin: 04/18/19 08:25 Dose: 50 mls/hr Lidocaine HCl (Xylocaine 1%) Confirm Administered Dose 20 ml .ROUTE .STK-MED ONE Stop: 04/15/19 17:46 Lidocaine HCl (Xylocaine-Mpf 1%) Confirm Administered Dose 5 ml .ROUTE .STK-MED ONE Stop: 04/17/19 12:26 Lidocaine HCl (Xylocaine-Mpf 1%) Confirm Administered Dose 5 ml .ROUTE .STK-MED ONE Stop: 04/17/19 15:29 Midazolam HCl (Versed 1 Mg/Ml) Confirm Administered Dose 2 mg .ROUTE .STK-MED ONE Stop: 04/17/19 12:26 Midazolam HCl (Versed 1 Mg/Ml) Confirm Administered Dose 2 mg .ROUTE .STK-MED ONE Stop: 04/17/19 16:22 Midazolam HCl (Versed 1 Mg/Ml) Confirm Administered Dose 2 mg .ROUTE .STK-MED ONE Stop: 04/17/19 16:28 Morphine Sulfate (Morphine) 4 mg IVPUSH ONETIME ONE Stop: 04/15/19 14:31 Last Admin: 04/15/19 14:44 Dose: 4 mg Morphine Sulfate (Morphine) 2 mg IVPUSH Q4H PRN PRN Reason: Pain (severe 7-10) Stop: 04/16/19 16:52 Last Admin: 04/15/19 19:59 Dose: 2 mg Morphine Sulfate (Morphine Adjunct Physics Instructor 30 Mg In 30 Ml) 0 mg IV ASDIRECTED AFTAB; Protocol Last Admin: 04/16/19 05:50 Dose: 30 mg Morphine Sulfate (Morphine Adjunct Physics Instructor 30 Mg In 30 Ml) 0 mg IV ASDIRECTED AFTAB; Protocol Last Admin: 04/17/19 05:15 Dose: 30 mg Naloxone HCl (Narcan) 0.04 mg IVPUSH Q3M PRN PRN Reason: Respiratory Depression Naloxone HCl (Narcan) 0.1 mg IVPUSH ASDIRECTED PRN PRN Reason: Respiratory Depression Ondansetron HCl (Zofran) 4 mg IVPUSH ONETIME ONE Stop: 04/15/19 14:31 Last Admin: 04/15/19 14:40 Dose: 4 mg Ondansetron HCl (Zofran) 4 mg IVPUSH Q6H PRN PRN Reason: Nausea/Vomiting Ondansetron HCl (Zofran) 4 mg IVPUSH Q6H PRN PRN Reason: Nausea/Vomiting Phenylephrine HCl (Jadiel-Synephrine) Confirm Administered Dose 10 mg .ROUTE .STK- MED ONE Stop: 04/17/19 12:26 Phenylephrine HCl (Phenylephrine In Ns 100 Mcg/Ml) Confirm Administered Dose 1 mg .ROUTE .STK-MED ONE Stop: 04/17/19 14:41 Potassium Chloride (Klor-Con M20) 20 meq PO ONETIME ONE Stop: 04/18/19 22:04 Last Admin: 04/18/19 22:53 Dose: 20 meq Propofol (Diprivan 20 Ml) Confirm Administered Dose 400 mg .ROUTE .STK-MED ONE Stop: 04/17/19 12:26 Propofol (Diprivan 20 Ml) Confirm Administered Dose 400 mg .ROUTE .STK-MED ONE Stop: 04/17/19 14:02 Propofol (Diprivan 20 Ml) Confirm Administered Dose 200 mg .ROUTE .STK-MED ONE Stop: 04/17/19 14:10 Sodium Phosphate (Neutra-Phos) 250 mg PO QID [facility] Last Admin: 04/19/19 06:28 Dose: 250 mg Tranexamic Acid (Cyklokapron) Confirm Administered Dose 1,000 mg .ROUTE .STK- MED ONE Stop: 04/17/19 12:45 Warfarin Sodium (Coumadin) 20 mg PO ONETIME ONE Stop: 04/17/19 21:01 Last Admin: 04/17/19 20:55 Dose: 20 mg Warfarin Sodium (Coumadin) 10 mg PO Q24H [facility] Warfarin Sodium (Coumadin Ask) 1 each PO ONETIME ONE Stop: 04/18/19 09:19 Last Admin: 04/18/19 11:36 Dose: Not Given Warfarin Sodium (Coumadin) 10 mg PO ONETIME ONE Stop: 04/18/19 14:01 Last Admin: 04/18/19 14:42 Dose: 10 mg - Exam Wound/Incisions: Dressing Dry and Intact (AquaCell intact with no shadows of drainage), Other (minimal soft tissue swelling left thigh/hip). No: Erythema Quality Assessment: DVT Prophylaxis (ambulation, Lovenox (bridging for coumadin) , SCDs when in bed.) General: Alert, Oriented, Cooperative, No Acute Distress Lungs: Normal Respiratory Effort Cardiovascular: Other (PP2+) Extremities: No: Pedal Edema (Sensation grossly intact to LLE) Skin: Warm, Dry Neurological: Normal Speech Sepsis Event Note - Evaluation Sepsis Screening Result: No Definite Risk - Focused Exam Vital Signs: Vital Signs Temp Pulse Resp BP BP Pulse Ox 04/19/19 08:22 108/65 04/19/19 07:20 36.7 C 76 18 108/65 94 L 04/19/19 02:34 37.8 C 73 18 149/73 H 93 L 04/19/19 00:00 37.6 C 04/18/19 22:56 37.9 C 89 20 90/60 90 L Date Exam was Performed: 04/19/19 Time Exam was Performed: 08:39 - Problem List Review Problem List Initiated/Reviewed/Updated: Yes - My Orders Last 24 Hours: Active Orders 24 hr Category Date Time Status Bladder Scan [RC] STAT Care 04/19/19 07:48 Active Blood Glucose Check, Bedside [RC] TIDMEALS Care 04/18/19 11:10 Active Intake and Output [RC] QSHIFT Care 04/19/19 07:47 Active Consult to Diabetic Nurse Specialist [CONS] Routine Cons 04/18/19 10:29 Active BASIC METABOLIC PANEL,BMP [CHEM] AM Lab 04/20/19 05:11 Ordered CBC WITH AUTO DIFF [HEME] AM Lab 04/20/19 05:11 Ordered INR,PT,PROTHROMBIN TIME [COAG] DAILY Lab 04/20/19 05:30 Ordered INR,PT,PROTHROMBIN TIME [COAG] DAILY Lab 04/21/19 05:30 Ordered INR,PT,PROTHROMBIN TIME [COAG] DAILY Lab 04/22/19 05:30 Ordered INR,PT,PROTHROMBIN TIME [COAG] DAILY Lab 04/23/19 05:30 Ordered MAGNESIUM [CHEM] AM Lab 04/20/19 05:11 Ordered PHOSPHORUS [CHEM] AM Lab 04/20/19 05:11 Ordered Acetaminophen/HYDROcodone [[place] 325-10 MG] Med 04/18/19 11:45 Active 1 tab PO Q6H PRN Docusate Sodium [Colace] Med 04/18/19 09:30 Active 100 mg PO BID Enoxaparin [Lovenox] Med 04/18/19 21:00 Active 100 mg SUBCUT Q12H Pantoprazole [ProTONIX] Med 04/19/19 07:30 Active 40 mg PO ACBREAKFAST polyethylene glycoL 3350 [MiraLAX] Med 04/18/19 09:00 Active 17 gm PO DAILY Convert IV to Saline Lock [OM.PC] PRN Oth 04/18/19 16:45 Ordered Medication Orders Hydrocodone Bitart/Acetaminophen ([place] 325-10 Mg) 1 tab PO Q6H PRN PRN Reason: Pain Last Admin: 04/19/19 03:23 Dose: 1 tab Admin: 04/18/19 17:43 Dose: 1 tab Admin: 04/18/19 11:46 Dose: 1 tab Al Hydroxide/Mg Hydroxide (Mag-Al Plus) 30 ml PO Q4H PRN PRN Reason: Indigestion Albuterol/Ipratropium (Duoneb 3.0-0.5 Mg/3 Ml) 3 ml NEB Q4HRRT PRN PRN Reason: Shortness Of Breath/wheezing Last Admin: 04/16/19 21:18 Dose: 3 ml Amlodipine Besylate (Norvasc) 10 mg PO DAILY [facility] Last Admin: 04/19/19 08:22 Dose: 10 mg Admin: 04/18/19 08:40 Dose: 10 mg Admin: 04/17/19 11:13 Dose: Admin: 04/16/19 08:06 Dose: 10 mg Bisacodyl (Dulcolax) 10 mg RECTAL DAILY PRN PRN Reason: Constipation Diphenhydramine HCl (Benadryl) 25 - 50 mg PO Q6H PRN PRN Reason: Itching Docusate Sodium (Colace) 100 mg PO BID [facility] Last Admin: 04/19/19 08:22 Dose: 100 mg Admin: 04/18/19 21:01 Dose: 100 mg Admin: 04/18/19 10:09 Dose: 100 mg Enoxaparin Sodium (Lovenox) 100 mg SUBCUT Q12H [facility] Last Admin: 04/19/19 08:24 Dose: 100 mg Admin: 04/18/19 21:01 Dose: 100 mg Finasteride (Proscar) 5 mg PO DAILY [facility] Last Admin: 04/19/19 08:22 Dose: 5 mg Admin: 04/18/19 08:39 Dose: 5 mg Admin: 04/17/19 11:14 Dose: Admin: 04/16/19 08:06 Dose: 5 mg Insulin Aspart (Novolog) 0 unit SUBCUT TIDAC [facility]; Protocol Last Admin: 04/19/19 06:43 Dose: Admin: 04/18/19 18:39 Dose: Not Given Admin: 04/18/19 13:10 Dose: Not Given Admin: 04/18/19 07:01 Dose: Not Given Admin: 04/17/19 17:18 Dose: Naloxone HCl (Narcan) 0.04 mg IVPUSH Q3M PRN PRN Reason: Respiratory Depression Ondansetron HCl (Zofran) 4 mg IVPUSH Q6H PRN PRN Reason: Nausea/Vomiting Last Admin: 04/19/19 03:23 Dose: 4 mg Admin: 04/18/19 05:36 Dose: 4 mg Pantoprazole Sodium (Protonix) 40 mg PO ACBREAKFAST [facility] Last Admin: 04/19/19 06:30 Dose: 40 mg Polyethylene Glycol (Miralax) 17 gm PO DAILY [facility] Last Admin: 04/19/19 08:22 Dose: 17 gm Admin: 04/18/19 08:41 Dose: 17 gm Rosuvastatin Calcium (Crestor) 5 mg PO DAILY [facility] Last Admin: 04/19/19 08:23 Dose: 5 mg Admin: 04/18/19 08:38 Dose: 5 mg Admin: 04/17/19 11:13 Dose: Admin: 04/16/19 08:08 Dose: 5 mg Sodium Chloride (Saline Flush) 10 ml FLUSH ASDIRECTED PRN PRN Reason: Keep Vein Open Sodium Chloride (Saline Flush) 2.5 ml FLUSH ASDIRECTED PRN PRN Reason: Keep Vein Open Last Admin: 04/18/19 14:40 Dose: 2.5 ml Tramadol HCl (Ultram) 50 - 100 mg PO Q6H PRN PRN Reason: Pain Last Admin: 04/18/19 03:57 Dose: 50 mg Admin: 04/17/19 21:39 Dose: 50 mg - Assessment Assessment (Free Text/Narrative):: 1) s/p LEFT total hip arthroplasty 2) Post-hemorrhagic anemia 3) Acute post-operative pain 4) elevated BUN/Creat - Plan Plan (Free Text/Narrative):: Post-operative Left SALUD, he is doing well. Afebrile. Hg stable 12.3 Tolerating food/fluids without N/V. We had madeline discussion in regards to pain control, educating him that he will not be 'pain free' as he expects to be after taking pain medication. Pain management with [place] 10mg every 6 hours with Tramadol supplemented if needed, along with Celebrex daily. He is opposed to using ice therapy to left hip. Discussed that this will keep inflammation down, which will also help to minimize pain, and encouraged use during the day. Yesterday, he had minimal ambulation secondary to being lethargic. He will be seen today by PT for progressive distance ambulation as well as managing steps ( he has 8 steps to get into his house). Spoke with hospitalist, whom expects overnight stay secondary to monitoring of elevated kidney function. DVT prophylaxis : ambulation, SCDs when in bed, and Lovenox. Hospitalist services for management of INR and other medical issues appreciated. Per orthopedics, once met goals with PT, he is ready for discharge home. He will be discharged home with his girlfriend.
--- NOTE | 2019-04-19 13:40 | ECHO ---
EXAM DATE: 04/15/19 PATIENT'S AGE: 64 The echocardiogram report can be seen in this patient's EMR (Electronic Medical Record) in the REPORTS section. The report has also been scanned into PACs. KE
[2019-04-19] MEDS: traMADol 50 MG Tab PO PRN (14:02)
[2019-04-20] MEDS: traMADol 50 MG Tab PO PRN ×3 (02:19→14:25)
[2019-04-20] MEDS: Acetaminophen/HYDROcodone 325-10 MG Tab PO PRN ×2 (04:30→10:47)
[2019-04-20 05:57] LABS: CARBON DIOXIDE,CO2 31.5 mmol/L (21.0-32.0); POTASSIUM,K 4.1 mmol/L (3.5-5.1)
[2019-04-20] MEDS: Insulin Aspart 100 Units/ML 3 ML Pen SUBCUT SCH ×3 (06:42→17:11)
[2019-04-20] MEDS: Pantoprazole 40 MG Tab.CR PO SCH (08:02)
[2019-04-20] MEDS: Docusate Sodium 100 MG Cap PO SCH ×2 (08:33→21:54)
[2019-04-20] MEDS: Finasteride 5 MG Tab PO SCH (08:33)
[2019-04-20] MEDS: amLODIPine 5 MG Tab PO SCH (08:33)
[2019-04-20] MEDS: Phosphorus #1 250 MG Tab PO SCH ×3 (08:33→17:11)
[2019-04-20] MEDS: Polyethylene Glycol 3350 Powder 17 GM Packet PO SCH (08:36)
[2019-04-20] MEDS: Rosuvastatin 10 MG Tab PO SCH (08:36)
[2019-04-20] MEDS: Enoxaparin 100 MG/1 ML Syringe SUBCUT SCH ×2 (08:37→21:54)
--- NOTE | 2019-04-20 10:09 | PCM.PN ---
- General Info Date of Service: 04/20/19 Admission Dx/Problem (Free Text): Admission Diagnosis/Problem Admission Diagnosis/Problem Subcapital fracture of left femur Subjective Update: Doing better today. No chest pain or SOB. Leg pain is improving, nervous about stairs at home. Has little help at home, as his father is 83 and girlfriend does not live with him. Functional Status: Reports: Pain Controlled, Tolerating Diet, Ambulating, Urinating - Review of Systems Pulmonary: Reports: No Symptoms. Denies: Shortness of Breath Cardiovascular: Reports: No Symptoms. Denies: Chest Pain Gastrointestinal: Reports: No Symptoms. Denies: Abdominal Pain, Nausea, Vomiting Genitourinary: Reports: No Symptoms Musculoskeletal: Reports: Leg Pain Neurological: Reports: No Symptoms Psychiatric: Reports: No Symptoms - Patient Data Vitals - Most Recent: Last Vital Signs Temp 98.8 F 04/20/19 07:30 Pulse 74 04/20/19 07:30 Resp 18 04/20/19 07:30 BP 124/96 H 04/20/19 08:33 Pulse Ox 94 L 04/20/19 07:30 Weight - Most Recent: 99.79 kg I&O - Last 24 Hours: Intake & Output 04/19/19 04/20/19 04/20/19 22:59 06:59 14:59 Intake Total 1437 700 Output Total 500 1075 Balance 937 -375 Lab Results Last 24 Hours: Laboratory Results - last 24 hr 04/19/19 04/19/19 04/20/19 Range/Units 11:28 17:09 05:18 WBC 7.68 (4.0-11.0) K/uL RBC 4.01 L (4.50-5.90) M/uL Hgb 12.1 L (13.0-17.0) g/dL Hct 35.3 L (38.0-50.0) % MCV 88.0 (80.0-98.0) fL MCH 30.2 (27.0-32.0) pg MCHC 34.3 (31.0-37.0) g/dL RDW Std Deviation 47.5 (28.0-62.0) fl RDW Coeff of Marilee 15 (11.0-15.0) % Plt Count 278 (150-400) K/uL MPV 10.10 (7.40-12.00) fL Neut % (Auto) 76.0 (48.0-80.0) % Lymph % (Auto) 7.4 L (16.0-40.0) % Gregg % (Auto) 14.1 (0.0-15.0) % Eos % (Auto) 2.2 (0.0-7.0) % Baso % (Auto) 0.3 (0.0-1.5) % Neut # (Auto) 5.8 H (1.4-5.7) K/uL Lymph # (Auto) 0.6 (0.6-2.4) K/uL Gregg # (Auto) 1.1 H (0.0-0.8) K/uL Eos # (Auto) 0.2 (0.0-0.7) K/uL Baso # (Auto) 0.0 (0.0-0.1) K/uL Nucleated RBC % 0.0 /100WBC Nucleated RBCs # 0 K/uL INR Sodium (136-148) mmol/L Potassium (3.5-5.1) mmol/L Chloride (98-107) mmol/L Carbon Dioxide (21.0-32.0) mmol/L BUN (7.0-18.0) mg/dL Creatinine (0.8-1.3) mg/dL Est Cr Clr Drug Dosing mL/min Estimated GFR (MDRD) ml/min Glucose (74-106) mg/dL POC Glucose 128 H 117 H (60-110) mg/dL Calcium (8.5-10.1) mg/dL Phosphorus (2.6-4.7) mg/dL Magnesium (1.8-2.4) mg/dL 04/20/19 04/20/19 04/20/19 Range/Units 05:18 05:18 06:27 WBC (4.0-11.0) K/uL RBC (4.50-5.90) M/uL Hgb (13.0-17.0) g/dL Hct (38.0-50.0) % MCV (80.0-98.0) fL MCH (27.0-32.0) pg MCHC (31.0-37.0) g/dL RDW Std Deviation (28.0-62.0) fl RDW Coeff of Marilee (11.0-15.0) % Plt Count (150-400) K/uL MPV (7.40-12.00) fL Neut % (Auto) (48.0-80.0) % Lymph % (Auto) (16.0-40.0) % Gregg % (Auto) (0.0-15.0) % Eos % (Auto) (0.0-7.0) % Baso % (Auto) (0.0-1.5) % Neut # (Auto) (1.4-5.7) K/uL Lymph # (Auto) (0.6-2.4) K/uL Gregg # (Auto) (0.0-0.8) K/uL Eos # (Auto) (0.0-0.7) K/uL Baso # (Auto) (0.0-0.1) K/uL Nucleated RBC % /100WBC Nucleated RBCs # K/uL INR 1.39 Sodium 140 (136-148) mmol/L Potassium 4.1 (3.5-5.1) mmol/L Chloride 104 (98-107) mmol/L Carbon Dioxide 31.5 (21.0-32.0) mmol/L BUN 24 H (7.0-18.0) mg/dL Creatinine 1.3 (0.8-1.3) mg/dL Est Cr Clr Drug Dosing 61.95 mL/min Estimated GFR (MDRD) 55.8 ml/min Glucose 131 H (74-106) mg/dL POC Glucose 121 H (60-110) mg/dL Calcium 8.2 L (8.5-10.1) mg/dL Phosphorus 2.5 L (2.6-4.7) mg/dL Magnesium 1.9 (1.8-2.4) mg/dL Med Orders - Current: Current Medications Hydrocodone Bitart/Acetaminophen ([place] 325-10 Mg) 1 tab PO Q6H PRN PRN Reason: Pain Last Admin: 04/20/19 04:30 Dose: 1 tab Al Hydroxide/Mg Hydroxide (Mag-Al Plus) 30 ml PO Q4H PRN PRN Reason: Indigestion Albuterol/Ipratropium (Duoneb 3.0-0.5 Mg/3 Ml) 3 ml NEB Q4HRRT PRN PRN Reason: Shortness Of Breath/wheezing Last Admin: 04/16/19 21:18 Dose: 3 ml Amlodipine Besylate (Norvasc) 10 mg PO DAILY [facility] Last Admin: 04/20/19 08:33 Dose: 10 mg Bisacodyl (Dulcolax) 10 mg RECTAL DAILY PRN PRN Reason: Constipation Diphenhydramine HCl (Benadryl) 25 - 50 mg PO Q6H PRN PRN Reason: Itching Docusate Sodium (Colace) 100 mg PO BID [facility] Last Admin: 04/20/19 08:33 Dose: 100 mg Enoxaparin Sodium (Lovenox) 100 mg SUBCUT Q12H [facility] Last Admin: 04/20/19 08:37 Dose: 100 mg Finasteride (Proscar) 5 mg PO DAILY [facility] Last Admin: 04/20/19 08:33 Dose: 5 mg Insulin Aspart (Novolog) 0 unit SUBCUT TIDAC [facility]; Protocol Last Admin: 04/20/19 06:42 Dose: Not Given Naloxone HCl (Narcan) 0.04 mg IVPUSH Q3M PRN PRN Reason: Respiratory Depression Ondansetron HCl (Zofran) 4 mg IVPUSH Q6H PRN PRN Reason: Nausea/Vomiting Last Admin: 04/19/19 03:23 Dose: 4 mg Pantoprazole Sodium (Protonix) 40 mg PO ACBREAKFAST [facility] Last Admin: 04/20/19 08:02 Dose: 40 mg Polyethylene Glycol (Miralax) 17 gm PO DAILY [facility] Last Admin: 04/20/19 08:36 Dose: 17 gm Rosuvastatin Calcium (Crestor) 5 mg PO DAILY [facility] Last Admin: 04/20/19 08:36 Dose: 5 mg Sodium Chloride (Saline Flush) 10 ml FLUSH ASDIRECTED PRN PRN Reason: Keep Vein Open Sodium Chloride (Saline Flush) 2.5 ml FLUSH ASDIRECTED PRN PRN Reason: Keep Vein Open Last Admin: 04/18/19 14:40 Dose: 2.5 ml Sodium Phosphate (Neutra-Phos) 250 mg PO QID [facility] Last Admin: 04/20/19 08:33 Dose: 250 mg Tramadol HCl (Ultram) 50 - 100 mg PO Q6H PRN PRN Reason: Pain Last Admin: 04/20/19 08:20 Dose: 100 mg Warfarin Sodium (Coumadin) 15 mg PO 04/20/19@1400 [facility] Stop: 04/20/19 14:01 Warfarin Sodium (Coumadin Ask) 1 each PO DAILY@1400 [facility] Discontinued Medications Hydrocodone Bitart/Acetaminophen ([place] 325-10 Mg) 1 - 2 tab PO Q6H PRN PRN Reason: Pain Last Admin: 04/18/19 05:32 Dose: 2 tab Albuterol (Proventil Neb Soln) 2.5 mg NEB ONETIME PRN PRN Reason: Wheezing Last Admin: 04/17/19 16:45 Dose: 2.5 mg Atropine Sulfate (Atropine 0.1 Mg/Ml) 0.5 mg IVPUSH ASDIRECTED PRN PRN Reason: Hypo-perfusion Atropine Sulfate (Atropine 0.1 Mg/Ml) 1 mg IVPUSH ASDIRECTED PRN PRN Reason: Hypo-Perfusion Bupivacaine HCl (Sensorcaine-Mpf 0.5%) Confirm Administered Dose 10 ml .ROUTE .STK-MED ONE Stop: 04/15/19 17:46 Bupivacaine HCl (Marcaine 0.5%) Confirm Administered Dose 30 ml .ROUTE .STK-MED ONE Stop: 04/15/19 17:49 Cefazolin Sodium/Dextrose (Ancef) Confirm Administered Dose 2 gm IV .STK-MED ONE Stop: 04/17/19 13:05 Celecoxib (Celebrex) 200 mg PO DAILY [facility] Last Admin: 04/18/19 08:39 Dose: 200 mg Dextrose/Water (Dextrose 50% In Water) 50 ml IVPUSH ASDIRECTED PRN PRN Reason: Hypoglycemia Diphenhydramine HCl (Benadryl) 25 mg IVPUSH Q6H PRN PRN Reason: Itching Diphenhydramine HCl (Benadryl) 25 mg PO Q6H PRN PRN Reason: Itching Diphenhydramine HCl (Benadryl) 25 mg IVPUSH Q6H PRN PRN Reason: Itching Diphenhydramine HCl (Benadryl) 25 mg PO Q6H PRN PRN Reason: Itching Docusate Sodium (Colace) 100 mg PO DAILY [facility] Last Admin: 04/17/19 11:12 Dose: Not Given Docusate Sodium (Colace) 100 mg PO BID PRN PRN Reason: Constipation Epinephrine HCl (Epinephrine 1:10,000) 1 mg IVPUSH ASDIRECTED PRN PRN Reason: ACLS Guidelines Fentanyl (Fentanyl) 50 mcg IVPUSH ONETIME ONE Stop: 04/15/19 16:11 Last Admin: 04/15/19 16:25 Dose: 50 mcg Fentanyl (Sublimaze) Confirm Administered Dose 100 mcg .ROUTE .STK-MED ONE Stop: 04/15/19 16:17 Last Admin: 04/15/19 16:27 Dose: Not Given Fentanyl (Sublimaze) Confirm Administered Dose 100 mcg .ROUTE .STK-MED ONE Stop: 04/17/19 12:26 Fentanyl (Sublimaze) Confirm Administered Dose 100 mcg .ROUTE .STK-MED ONE Stop: 04/17/19 13:22 Fentanyl (Sublimaze) 50 mcg IVPUSH Q5M PRN PRN Reason: Pain Hydromorphone HCl (Dilaudid) 1 mg IVPUSH ONETIME ONE Stop: 04/15/19 17:41 Last Admin: 04/15/19 17:49 Dose: 1 mg Sodium Chloride (Normal Saline) 1,000 mls @ 125 mls/hr IV ASDIRECTED [facility] Last Admin: 04/17/19 12:46 Dose: 125 mls/hr Pantoprazole Sodium 40 mg/ (Sodium Chloride) 10 mls @ 300 mls/hr IV Q12HR [facility] Last Admin: 04/18/19 08:35 Dose: 300 mls/hr Magnesium Sulfate 2 gm/ Premix 50 mls @ 50 mls/hr IV ONETIME ONE Stop: 04/16/19 04:35 Last Admin: 04/16/19 04:35 Dose: 50 mls/hr Cefazolin Sodium/Dextrose 2 gm (/ Premix) 50 mls @ 100 mls/hr IV ONETIME ONE Stop: 04/17/19 08:59 Last Admin: 04/17/19 08:35 Dose: 100 mls/hr Ropivacaine 49.25 ml/Ketorolac Tromethamine 30 mg/Epinephrine HCl 0.5 mg/ Clonidine HCl 80 mcg/ Sodium Chloride 75 mls @ 50 mls/sec INJECT ASDIRECTED [facility] Tranexamic Acid 1,000 mg/ (Sodium Chloride) 110 mls @ 600 mls/hr IV ASDIRECTED ONE Stop: 04/17/19 13:10 Last Admin: 04/17/19 17:09 Dose: Not Given Cefazolin Sodium/Dextrose 2 gm (/ Premix) 50 mls @ 100 mls/hr IV Q8H [facility] Stop: 04/18/19 05:29 Last Admin: 04/18/19 05:06 Dose: 100 mls/hr Magnesium Sulfate 2 gm/ Premix 50 mls @ 50 mls/hr IV ONETIME ONE Stop: 04/18/19 08:44 Last Admin: 04/18/19 08:25 Dose: 50 mls/hr Sodium Chloride (Normal Saline) 1,000 mls @ 150 mls/hr IV Q6H [facility] Stop: 04/19/19 14:44 Last Admin: 04/19/19 09:35 Dose: 150 mls/hr Lidocaine HCl (Xylocaine 1%) Confirm Administered Dose 20 ml .ROUTE .STK-MED ONE Stop: 04/15/19 17:46 Lidocaine HCl (Xylocaine-Mpf 1%) Confirm Administered Dose 5 ml .ROUTE .STK-MED ONE Stop: 04/17/19 12:26 Lidocaine HCl (Xylocaine-Mpf 1%) Confirm Administered Dose 5 ml .ROUTE .STK-MED ONE Stop: 04/17/19 15:29 Midazolam HCl (Versed 1 Mg/Ml) Confirm Administered Dose 2 mg .ROUTE .STK-MED ONE Stop: 04/17/19 12:26 Midazolam HCl (Versed 1 Mg/Ml) Confirm Administered Dose 2 mg .ROUTE .STK-MED ONE Stop: 04/17/19 16:22 Midazolam HCl (Versed 1 Mg/Ml) Confirm Administered Dose 2 mg .ROUTE .STK-MED ONE Stop: 04/17/19 16:28 Morphine Sulfate (Morphine) 4 mg IVPUSH ONETIME ONE Stop: 04/15/19 14:31 Last Admin: 04/15/19 14:44 Dose: 4 mg Morphine Sulfate (Morphine) 2 mg IVPUSH Q4H PRN PRN Reason: Pain (severe 7-10) Stop: 04/16/19 16:52 Last Admin: 04/15/19 19:59 Dose: 2 mg Morphine Sulfate (Morphine Emergency Medical Technician Basic 30 Mg In 30 Ml) 0 mg IV ASDIRECTED [facility]; Protocol Last Admin: 04/16/19 05:50 Dose: 30 mg Morphine Sulfate (Morphine Emergency Medical Technician Basic 30 Mg In 30 Ml) 0 mg IV ASDIRECTED [facility]; Protocol Last Admin: 04/17/19 05:15 Dose: 30 mg Naloxone HCl (Narcan) 0.04 mg IVPUSH Q3M PRN PRN Reason: Respiratory Depression Naloxone HCl (Narcan) 0.1 mg IVPUSH ASDIRECTED PRN PRN Reason: Respiratory Depression Ondansetron HCl (Zofran) 4 mg IVPUSH ONETIME ONE Stop: 04/15/19 14:31 Last Admin: 04/15/19 14:40 Dose: 4 mg Ondansetron HCl (Zofran) 4 mg IVPUSH Q6H PRN PRN Reason: Nausea/Vomiting Ondansetron HCl (Zofran) 4 mg IVPUSH Q6H PRN PRN Reason: Nausea/Vomiting Phenylephrine HCl (Jadiel-Synephrine) Confirm Administered Dose 10 mg .ROUTE .STK- MED ONE Stop: 04/17/19 12:26 Phenylephrine HCl (Phenylephrine In Ns 100 Mcg/Ml) Confirm Administered Dose 1 mg .ROUTE .STK-MED ONE Stop: 04/17/19 14:41 Potassium Chloride (Klor-Con M20) 20 meq PO ONETIME ONE Stop: 04/18/19 22:04 Last Admin: 04/18/19 22:53 Dose: 20 meq Propofol (Diprivan 20 Ml) Confirm Administered Dose 400 mg .ROUTE .STK-MED ONE Stop: 04/17/19 12:26 Propofol (Diprivan 20 Ml) Confirm Administered Dose 400 mg .ROUTE .STK-MED ONE Stop: 04/17/19 14:02 Propofol (Diprivan 20 Ml) Confirm Administered Dose 200 mg .ROUTE .STK-MED ONE Stop: 04/17/19 14:10 Sodium Phosphate (Neutra-Phos) 250 mg PO QID [facility] Last Admin: 04/19/19 06:28 Dose: 250 mg Tranexamic Acid (Cyklokapron) Confirm Administered Dose 1,000 mg .ROUTE .STK- MED ONE Stop: 04/17/19 12:45 Warfarin Sodium (Coumadin) 20 mg PO ONETIME ONE Stop: 04/17/19 21:01 Last Admin: 04/17/19 20:55 Dose: 20 mg Warfarin Sodium (Coumadin) 10 mg PO Q24H [facility] Warfarin Sodium (Coumadin Ask) 1 each PO ONETIME ONE Stop: 04/18/19 09:19 Last Admin: 04/18/19 11:36 Dose: Not Given Warfarin Sodium (Coumadin) 10 mg PO ONETIME ONE Stop: 04/18/19 14:01 Last Admin: 04/18/19 14:42 Dose: 10 mg - Exam General: Alert, Oriented, Cooperative, No Acute Distress Lungs: Clear to Auscultation, Normal Respiratory Effort Cardiovascular: Regular Rate, Regular Rhythm GI/Abdominal Exam: Normal Bowel Sounds, Soft, Non-Tender Extremities: Normal Inspection, Normal Range of Motion, Non-Tender, No Pedal Edema Wound/Incisions: Dressing Dry and Intact. No: Erythema Neurological: No New Focal Deficit Psy/Mental Status: Alert, Normal Affect, Normal Mood Sepsis Event Note - Evaluation Sepsis Screening Result: No Definite Risk - Focused Exam Vital Signs: Vital Signs Temp Pulse Resp BP BP Pulse Ox 04/20/19 08:33 124/96 H 04/20/19 07:30 98.8 F 74 18 130/60 94 L 04/20/19 04:00 99.0 F 83 20 173/79 H 95 04/20/19 00:00 98.7 F 94 20 160/76 H 93 L Date Exam was Performed: 04/20/19 Time Exam was Performed: 11:54 - Problem List & Annotations (1) Subcapital fracture of neck of left femur SNOMED Code(s): 874117403 Code(s): S72.012A - UNSP INTRACAPSULAR FRACTURE OF LEFT FEMUR, INIT FOR CLOS FX Status: Acute Current Visit: Yes Qualifiers: Encounter type: initial encounter Fracture type: closed Qualified Code(s) : S72.012A - Unspecified intracapsular fracture of left femur, initial encounter for closed fracture (2) Chronic anticoagulation SNOMED Code(s): 158150044 Code(s): Z79.01 - BANQUET DIRECTOR (CURRENT) USE OF ANTICOAGULANTS Status: Chronic Current Visit: No (3) Dyslipidemia SNOMED Code(s): 567097195 Code(s): E78.5 - HYPERLIPIDEMIA, UNSPECIFIED Status: Chronic Current Visit: No (4) HTN (hypertension) SNOMED Code(s): 96054016 Code(s): I10 - ESSENTIAL (PRIMARY) HYPERTENSION Status: Chronic Current Visit: No Qualifiers: Hypertension type: essential hypertension Qualified Code(s): I10 - Essential (primary) hypertension (5) PAD (peripheral artery disease) SNOMED Code(s): 018788846 Code(s): I73.9 - PERIPHERAL VASCULAR DISEASE, UNSPECIFIED Status: Chronic Current Visit: No (6) New onset type 2 diabetes mellitus SNOMED Code(s): 96884479 Code(s): E11.9 - TYPE 2 DIABETES MELLITUS WITHOUT COMPLICATIONS Status: Acute Current Visit: Yes (7) GLENNA (acute kidney injury) SNOMED Code(s): 16679013, 94055760 Code(s): N17.9 - ACUTE KIDNEY FAILURE, UNSPECIFIED Status: Acute Current Visit: Yes - Problem List Review Problem List Initiated/Reviewed/Updated: Yes - My Orders Last 24 Hours: My Active Orders 04/20/19 07:51 Phosphorus #1 [Neutra-Phos] 250 mg PO QID - Plan Plan:: This 64 year old male admitted for left femoral fracture, has significant hx of PAD with grafting and stenting to lower extremities and on Coumadin for anticoagulation. 1. L femoral fracture: - Pain control per Orthopedics - Restarted Coumadin, bridge with Lovenox. Monitor INR daily - Continue bowel regimen, had BM today. Counseled on home management of this. - Nervous about stairs. Continue PT today. 2. GLENNA: - BUN and Cr improved today, Monitor. - Encouraged oral hydration. 3. HTN: - Improved. - Continue antihypertensive, Amlodipine. On telemetry. 4. PAD - Continue Coumadin today, INR 1.3. Continue Lovenox bridge therapy. - Consult Pharmacy for Coumadin therapy. 5. New onset DM type 2: - DM educator consult this afternoon to allow for patient to be more alert and less sedated from pain meds for education. - Novolog SSI with meals. - Likely DC home on Metformin. VTE prophylaxis: Coumadin, Lovenox GI prophylaxis: Protonix IV Code status: FULL Code Dispo: Home in am.
--- NOTE | 2019-04-20 12:05 | PCM.SN ---
- Free Text/Narrative Note: Ortho Note POD#3 from left SALUD Still difficulty managing pain Progressing slowly in PT Dressing clear INR 1.54 (04/19) and 1.39 (04/20) Plan: Continue PT Recommend resuming pre-op warfarin dosing, discontinuing LMWH, and starting celebrex 200 mg bid for pain. As MEDEIROS-2, Celebrex does not have increased bleeding risks Discharge when cleared by PT Discharge prescriptions for Celebrex and Vicodin written
[2019-04-20] MEDS ORDERED: Warfarin 5 MG Tab PO SCH (14:00)
[2019-04-20] MEDS: Ondansetron 4 MG/2 ML SDV IVPUSH PRN (17:11)
--- NOTE | 2019-04-20 21:57 | CR ---
INDICATION: Low oxygen saturation. COMPARISON: 04/15/2019. FINDINGS/IMPRESSION: Shallow inspiration. No acute pulmonary consolidation or pleural effusion. Incidental left lower lung calcified granuloma, as before. Normal heart size. No acute osseous findings. Dictated by Bryon Amezquita MD @ 04/20/2019 9:56:02 PM Dictated by: Bryon Amezquita MD @ 04/20/2019 21:56:22 (Electronically Signed)
[2019-04-21] MEDS: Phosphorus #1 250 MG Tab PO SCH ×4 (00:18→17:13)
[2019-04-21 05:57] LABS: BLOOD UREA NITROGEN,BUN 28 mg/dL (7.0-18.0); CARBON DIOXIDE,CO2 31.9 mmol/L (21.0-32.0); GLUCOSE RANDOM 118 mg/dL (74-106)
[2019-04-21 06:09] LABS: CHLORIDE,CL 102 mmol/L (98-107); SODIUM,NA 139 mmol/L (136-148)
[2019-04-21] MEDS: Pantoprazole 40 MG Tab.CR PO SCH (07:31)
[2019-04-21] MEDS: Insulin Aspart 100 Units/ML 3 ML Pen SUBCUT SCH ×3 (07:32→17:13)
[2019-04-21] MEDS ORDERED: Acetaminophen 500 MG Tab PO PRN (08:57)
--- NOTE | 2019-04-21 08:57 | PCM.PN ---
- General Info Date of Service: 04/21/19 Admission Dx/Problem (Free Text): Admission Diagnosis/Problem Admission Diagnosis/Problem Subcapital fracture of left femur Subjective Update: More alert than overnight. Patient continues to have mild confusion. But girlfriend at bedside reports he is much improved. No chest pain or SOB. No abdominal pain. Reports dysuria. reports leg pain. Functional Status: Reports: Tolerating Diet, Ambulating, Urinating. Denies: Pain Controlled - Review of Systems HEENT: Reports: No Symptoms. Denies: Headaches, Sore Throat, Visual Changes Pulmonary: Reports: No Symptoms. Denies: Shortness of Breath Cardiovascular: Reports: No Symptoms. Denies: Chest Pain Gastrointestinal: Reports: No Symptoms. Denies: Abdominal Pain, Nausea, Vomiting Genitourinary: Reports: Dysuria, Burning Musculoskeletal: Reports: Leg Pain Skin: Reports: No Symptoms Psychiatric: Reports: No Symptoms. Denies: Confusion, Agitation, Hallucinations (no longer, was having overnight) - Patient Data Vitals - Most Recent: Last Vital Signs Temp 98 F 04/21/19 04:00 Pulse 69 04/21/19 04:00 Resp 17 04/21/19 04:00 BP 147/73 H 04/21/19 04:00 Pulse Ox 91 L 04/21/19 04:00 Weight - Most Recent: 99.79 kg I&O - Last 24 Hours: Intake & Output 04/20/19 04/21/19 04/21/19 22:59 06:59 14:59 Intake Total 1610 1000 Output Total 820 550 Balance 790 450 Lab Results Last 24 Hours: Laboratory Results - last 24 hr 04/17/19 04/20/19 04/20/19 Range/Units 07:06 12:32 17:01 Hgb (13.0-17.0) g/dL Hct (38.0-50.0) % INR ABG pH (7.35-7.45) ABG pCO2 (35-45) mmHG ABG pO2 (75-100) mmHG ABG HCO3 (22-26) mEq/L ABG Total CO2 ABG Base Excess (-2.0-2.0) Sodium (136-148) mmol/L Potassium (3.5-5.1) mmol/L Chloride (98-107) mmol/L Carbon Dioxide (21.0-32.0) mmol/L BUN (7.0-18.0) mg/dL Creatinine (0.8-1.3) mg/dL Est Cr Clr Drug Dosing mL/min Estimated GFR (MDRD) ml/min Glucose (74-106) mg/dL POC Glucose 90 121 H (60-110) mg/dL Calcium (8.5-10.1) mg/dL Magnesium (1.8-2.4) mg/dL Crossmatch See Detail 04/20/19 04/21/19 04/21/19 Range/Units 21:48 04:56 04:56 Hgb 11.6 L (13.0-17.0) g/dL Hct 35.2 L (38.0-50.0) % INR 1.44 ABG pH 7.397 (7.35-7.45) ABG pCO2 48 H (35-45) mmHG ABG pO2 65 L (75-100) mmHG ABG HCO3 30 H (22-26) mEq/L ABG Total CO2 27.0 ABG Base Excess 3.9 H (-2.0-2.0) Sodium (136-148) mmol/L Potassium (3.5-5.1) mmol/L Chloride (98-107) mmol/L Carbon Dioxide (21.0-32.0) mmol/L BUN (7.0-18.0) mg/dL Creatinine (0.8-1.3) mg/dL Est Cr Clr Drug Dosing mL/min Estimated GFR (MDRD) ml/min Glucose (74-106) mg/dL POC Glucose (60-110) mg/dL Calcium (8.5-10.1) mg/dL Magnesium (1.8-2.4) mg/dL Crossmatch 04/21/19 04/21/19 04/21/19 Range/Units 04:56 06:02 08:33 Hgb (13.0-17.0) g/dL Hct (38.0-50.0) % INR ABG pH (7.35-7.45) ABG pCO2 (35-45) mmHG ABG pO2 (75-100) mmHG ABG HCO3 (22-26) mEq/L ABG Total CO2 ABG Base Excess (-2.0-2.0) Sodium 139 (136-148) mmol/L Potassium 4.0 (3.5-5.1) mmol/L Chloride 102 (98-107) mmol/L Carbon Dioxide 31.9 (21.0-32.0) mmol/L BUN 28 H (7.0-18.0) mg/dL Creatinine 1.2 (0.8-1.3) mg/dL Est Cr Clr Drug Dosing 67.11 mL/min Estimated GFR (MDRD) > 60.0 ml/min Glucose 118 H (74-106) mg/dL POC Glucose 109 116 H (60-110) mg/dL Calcium 8.2 L (8.5-10.1) mg/dL Magnesium 2.0 (1.8-2.4) mg/dL Crossmatch Med Orders - Current: Current Medications Al Hydroxide/Mg Hydroxide (Mag-Al Plus) 30 ml PO Q4H PRN PRN Reason: Indigestion Albuterol/Ipratropium (Duoneb 3.0-0.5 Mg/3 Ml) 3 ml NEB Q4HRRT PRN PRN Reason: Shortness Of Breath/wheezing Last Admin: 04/16/19 21:18 Dose: 3 ml Amlodipine Besylate (Norvasc) 10 mg PO DAILY [facility] Last Admin: 04/20/19 08:33 Dose: 10 mg Bisacodyl (Dulcolax) 10 mg RECTAL DAILY PRN PRN Reason: Constipation Diphenhydramine HCl (Benadryl) 25 - 50 mg PO Q6H PRN PRN Reason: Itching Docusate Sodium (Colace) 100 mg PO BID [facility] Last Admin: 04/20/19 21:54 Dose: 100 mg Doxazosin Mesylate (Cardura) 8 mg PO BEDTIME [facility] Enoxaparin Sodium (Lovenox) 100 mg SUBCUT Q12H [facility] Last Admin: 04/20/19 21:54 Dose: 100 mg Finasteride (Proscar) 5 mg PO DAILY [facility] Last Admin: 04/20/19 08:33 Dose: 5 mg Insulin Aspart (Novolog) 0 unit SUBCUT TIDAC [facility]; Protocol Last Admin: 04/21/19 07:32 Dose: Not Given Naloxone HCl (Narcan) 0.04 mg IVPUSH Q3M PRN PRN Reason: Respiratory Depression Ondansetron HCl (Zofran) 4 mg IVPUSH Q6H PRN PRN Reason: Nausea/Vomiting Last Admin: 04/20/19 17:11 Dose: 4 mg Pantoprazole Sodium (Protonix) 40 mg PO ACBREAKFAST [facility] Last Admin: 04/21/19 07:31 Dose: 40 mg Polyethylene Glycol (Miralax) 17 gm PO DAILY [facility] Last Admin: 04/20/19 08:36 Dose: 17 gm Rosuvastatin Calcium (Crestor) 5 mg PO DAILY [facility] Last Admin: 04/20/19 08:36 Dose: 5 mg Sodium Chloride (Saline Flush) 10 ml FLUSH ASDIRECTED PRN PRN Reason: Keep Vein Open Sodium Chloride (Saline Flush) 2.5 ml FLUSH ASDIRECTED PRN PRN Reason: Keep Vein Open Last Admin: 04/18/19 14:40 Dose: 2.5 ml Sodium Phosphate (Neutra-Phos) 250 mg PO QID [facility] Last Admin: 04/21/19 07:31 Dose: 250 mg Warfarin Sodium (Coumadin Ask) 1 each PO DAILY@1400 [facility] Last Admin: 04/20/19 14:27 Dose: Not Given Warfarin Sodium (Coumadin) 15 mg PO DAILY@1400 ONE Stop: 04/21/19 14:01 Discontinued Medications Hydrocodone Bitart/Acetaminophen ([place]lap 325-10 Mg) 1 - 2 tab PO Q6H PRN PRN Reason: Pain Last Admin: 04/18/19 05:32 Dose: 2 tab Hydrocodone Bitart/Acetaminophen ([place]lap 325-10 Mg) 1 tab PO Q6H PRN PRN Reason: Pain Last Admin: 04/20/19 10:47 Dose: 1 tab Albuterol (Proventil Neb Soln) 2.5 mg NEB ONETIME PRN PRN Reason: Wheezing Last Admin: 04/17/19 16:45 Dose: 2.5 mg Atropine Sulfate (Atropine 0.1 Mg/Ml) 0.5 mg IVPUSH ASDIRECTED PRN PRN Reason: Hypo-perfusion Atropine Sulfate (Atropine 0.1 Mg/Ml) 1 mg IVPUSH ASDIRECTED PRN PRN Reason: Hypo-Perfusion Bupivacaine HCl (Sensorcaine-Mpf 0.5%) Confirm Administered Dose 10 ml .ROUTE .STK-MED ONE Stop: 04/15/19 17:46 Bupivacaine HCl (Marcaine 0.5%) Confirm Administered Dose 30 ml .ROUTE .STK-MED ONE Stop: 04/15/19 17:49 Cefazolin Sodium/Dextrose (Ancef) Confirm Administered Dose 2 gm IV .STK-MED ONE Stop: 04/17/19 13:05 Celecoxib (Celebrex) 200 mg PO DAILY [facility] Last Admin: 04/18/19 08:39 Dose: 200 mg Dextrose/Water (Dextrose 50% In Water) 50 ml IVPUSH ASDIRECTED PRN PRN Reason: Hypoglycemia Diphenhydramine HCl (Benadryl) 25 mg IVPUSH Q6H PRN PRN Reason: Itching Diphenhydramine HCl (Benadryl) 25 mg PO Q6H PRN PRN Reason: Itching Diphenhydramine HCl (Benadryl) 25 mg IVPUSH Q6H PRN PRN Reason: Itching Diphenhydramine HCl (Benadryl) 25 mg PO Q6H PRN PRN Reason: Itching Docusate Sodium (Colace) 100 mg PO DAILY [facility] Last Admin: 04/17/19 11:12 Dose: Not Given Docusate Sodium (Colace) 100 mg PO BID PRN PRN Reason: Constipation Epinephrine HCl (Epinephrine 1:10,000) 1 mg IVPUSH ASDIRECTED PRN PRN Reason: ACLS Guidelines Fentanyl (Fentanyl) 50 mcg IVPUSH ONETIME ONE Stop: 04/15/19 16:11 Last Admin: 04/15/19 16:25 Dose: 50 mcg Fentanyl (Sublimaze) Confirm Administered Dose 100 mcg .ROUTE .STK-MED ONE Stop: 04/15/19 16:17 Last Admin: 04/15/19 16:27 Dose: Not Given Fentanyl (Sublimaze) Confirm Administered Dose 100 mcg .ROUTE .STK-MED ONE Stop: 04/17/19 12:26 Fentanyl (Sublimaze) Confirm Administered Dose 100 mcg .ROUTE .STK-MED ONE Stop: 04/17/19 13:22 Fentanyl (Sublimaze) 50 mcg IVPUSH Q5M PRN PRN Reason: Pain Hydromorphone HCl (Dilaudid) 1 mg IVPUSH ONETIME ONE Stop: 04/15/19 17:41 Last Admin: 04/15/19 17:49 Dose: 1 mg Sodium Chloride (Normal Saline) 1,000 mls @ 125 mls/hr IV ASDIRECTED [facility] Last Admin: 04/17/19 12:46 Dose: 125 mls/hr Pantoprazole Sodium 40 mg/ (Sodium Chloride) 10 mls @ 300 mls/hr IV Q12HR [facility] Last Admin: 04/18/19 08:35 Dose: 300 mls/hr Magnesium Sulfate 2 gm/ Premix 50 mls @ 50 mls/hr IV ONETIME ONE Stop: 04/16/19 04:35 Last Admin: 04/16/19 04:35 Dose: 50 mls/hr Cefazolin Sodium/Dextrose 2 gm (/ Premix) 50 mls @ 100 mls/hr IV ONETIME ONE Stop: 04/17/19 08:59 Last Admin: 04/17/19 08:35 Dose: 100 mls/hr Ropivacaine 49.25 ml/Ketorolac Tromethamine 30 mg/Epinephrine HCl 0.5 mg/ Clonidine HCl 80 mcg/ Sodium Chloride 75 mls @ 50 mls/sec INJECT ASDIRECTED [facility] Tranexamic Acid 1,000 mg/ (Sodium Chloride) 110 mls @ 600 mls/hr IV ASDIRECTED ONE Stop: 04/17/19 13:10 Last Admin: 04/17/19 17:09 Dose: Not Given Cefazolin Sodium/Dextrose 2 gm (/ Premix) 50 mls @ 100 mls/hr IV Q8H [facility] Stop: 04/18/19 05:29 Last Admin: 04/18/19 05:06 Dose: 100 mls/hr Magnesium Sulfate 2 gm/ Premix 50 mls @ 50 mls/hr IV ONETIME ONE Stop: 04/18/19 08:44 Last Admin: 04/18/19 08:25 Dose: 50 mls/hr Sodium Chloride (Normal Saline) 1,000 mls @ 150 mls/hr IV Q6H [facility] Stop: 04/19/19 14:44 Last Admin: 04/19/19 09:35 Dose: 150 mls/hr Lidocaine HCl (Xylocaine 1%) Confirm Administered Dose 20 ml .ROUTE .STK-MED ONE Stop: 04/15/19 17:46 Lidocaine HCl (Xylocaine-Mpf 1%) Confirm Administered Dose 5 ml .ROUTE .STK-MED ONE Stop: 04/17/19 12:26 Lidocaine HCl (Xylocaine-Mpf 1%) Confirm Administered Dose 5 ml .ROUTE .STK-MED ONE Stop: 04/17/19 15:29 Midazolam HCl (Versed 1 Mg/Ml) Confirm Administered Dose 2 mg .ROUTE .STK-MED ONE Stop: 04/17/19 12:26 Midazolam HCl (Versed 1 Mg/Ml) Confirm Administered Dose 2 mg .ROUTE .STK-MED ONE Stop: 04/17/19 16:22 Midazolam HCl (Versed 1 Mg/Ml) Confirm Administered Dose 2 mg .ROUTE .STK-MED ONE Stop: 04/17/19 16:28 Morphine Sulfate (Morphine) 4 mg IVPUSH ONETIME ONE Stop: 04/15/19 14:31 Last Admin: 04/15/19 14:44 Dose: 4 mg Morphine Sulfate (Morphine) 2 mg IVPUSH Q4H PRN PRN Reason: Pain (severe 7-10) Stop: 04/16/19 16:52 Last Admin: 04/15/19 19:59 Dose: 2 mg Morphine Sulfate (Morphine [employer] H[employer] Representative 30 Mg In 30 Ml) 0 mg IV ASDIRECTED [facility]; Protocol Last Admin: 04/16/19 05:50 Dose: 30 mg Morphine Sulfate (Morphine [employer] H[employer] Representative 30 Mg In 30 Ml) 0 mg IV ASDIRECTED [facility]; Protocol Last Admin: 04/17/19 05:15 Dose: 30 mg Naloxone HCl (Narcan) 0.04 mg IVPUSH Q3M PRN PRN Reason: Respiratory Depression Naloxone HCl (Narcan) 0.1 mg IVPUSH ASDIRECTED PRN PRN Reason: Respiratory Depression Ondansetron HCl (Zofran) 4 mg IVPUSH ONETIME ONE Stop: 04/15/19 14:31 Last Admin: 04/15/19 14:40 Dose: 4 mg Ondansetron HCl (Zofran) 4 mg IVPUSH Q6H PRN PRN Reason: Nausea/Vomiting Ondansetron HCl (Zofran) 4 mg IVPUSH Q6H PRN PRN Reason: Nausea/Vomiting Phenylephrine HCl (Jadiel-Synephrine) Confirm Administered Dose 10 mg .ROUTE .STK- MED ONE Stop: 04/17/19 12:26 Phenylephrine HCl (Phenylephrine In Ns 100 Mcg/Ml) Confirm Administered Dose 1 mg .ROUTE .STK-MED ONE Stop: 04/17/19 14:41 Potassium Chloride (Klor-Con M20) 20 meq PO ONETIME ONE Stop: 04/18/19 22:04 Last Admin: 04/18/19 22:53 Dose: 20 meq Propofol (Diprivan 20 Ml) Confirm Administered Dose 400 mg .ROUTE .STK-MED ONE Stop: 04/17/19 12:26 Propofol (Diprivan 20 Ml) Confirm Administered Dose 400 mg .ROUTE .STK-MED ONE Stop: 04/17/19 14:02 Propofol (Diprivan 20 Ml) Confirm Administered Dose 200 mg .ROUTE .STK-MED ONE Stop: 04/17/19 14:10 Sodium Phosphate (Neutra-Phos) 250 mg PO QID [facility] Last Admin: 04/19/19 06:28 Dose: 250 mg Tramadol HCl (Ultram) 50 - 100 mg PO Q6H PRN PRN Reason: Pain Last Admin: 04/20/19 14:25 Dose: 100 mg Tranexamic Acid (Cyklokapron) Confirm Administered Dose 1,000 mg .ROUTE .STK- MED ONE Stop: 04/17/19 12:45 Warfarin Sodium (Coumadin) 20 mg PO ONETIME ONE Stop: 04/17/19 21:01 Last Admin: 04/17/19 20:55 Dose: 20 mg Warfarin Sodium (Coumadin) 10 mg PO Q24H [facility] Warfarin Sodium (Coumadin Ask) 1 each PO ONETIME ONE Stop: 04/18/19 09:19 Last Admin: 04/18/19 11:36 Dose: Not Given Warfarin Sodium (Coumadin) 10 mg PO ONETIME ONE Stop: 04/18/19 14:01 Last Admin: 04/18/19 14:42 Dose: 10 mg Warfarin Sodium (Coumadin) 15 mg PO 04/20/19@1400 [facility] Stop: 04/20/19 14:01 Last Admin: 04/20/19 14:26 Dose: 15 mg - Exam General: Alert, Oriented, Cooperative, No Acute Distress Lungs: Clear to Auscultation, Normal Respiratory Effort Cardiovascular: Regular Rate, Regular Rhythm GI/Abdominal Exam: Normal Bowel Sounds, Soft, Non-Tender Back Exam: Normal Inspection, Full Range of Motion Extremities: Normal Inspection, Normal Range of Motion, Non-Tender, No Pedal Edema Wound/Incisions: Dressing Dry and Intact, No Drainage. No: Erythema Psy/Mental Status: Alert, Normal Affect, Normal Mood. No: Hallucinations Sepsis Event Note - Evaluation Sepsis Screening Result: No Definite Risk - Focused Exam Vital Signs: Vital Signs Temp Pulse Resp BP Pulse Ox 04/21/19 04:00 98 F 69 17 147/73 H 91 L 04/21/19 00:23 98.1 F 69 17 144/67 H 98 Date Exam was Performed: 04/21/19 Time Exam was Performed: 14:15 - Problem List & Annotations (1) Subcapital fracture of neck of left femur SNOMED Code(s): 789397766 Code(s): S72.012A - UNSP INTRACAPSULAR FRACTURE OF LEFT FEMUR, INIT FOR CLOS FX Status: Acute Current Visit: Yes Qualifiers: Encounter type: initial encounter Fracture type: closed Qualified Code(s) : S72.012A - Unspecified intracapsular fracture of left femur, initial encounter for closed fracture (2) Chronic anticoagulation SNOMED Code(s): 776383249 Code(s): Z79.01 - SMALL STOCK FACER (CURRENT) USE OF ANTICOAGULANTS Status: Chronic Current Visit: No (3) Dyslipidemia SNOMED Code(s): 998290456 Code(s): E78.5 - HYPERLIPIDEMIA, UNSPECIFIED Status: Chronic Current Visit: No (4) HTN (hypertension) SNOMED Code(s): 38059965 Code(s): I10 - ESSENTIAL (PRIMARY) HYPERTENSION Status: Chronic Current Visit: No Qualifiers: Hypertension type: essential hypertension Qualified Code(s): I10 - Essential (primary) hypertension (5) PAD (peripheral artery disease) SNOMED Code(s): 917117907 Code(s): I73.9 - PERIPHERAL VASCULAR DISEASE, UNSPECIFIED Status: Chronic Current Visit: No (6) New onset type 2 diabetes mellitus SNOMED Code(s): 88666553 Code(s): E11.9 - TYPE 2 DIABETES MELLITUS WITHOUT COMPLICATIONS Status: Acute Current Visit: Yes (7) GLENNA (acute kidney injury) SNOMED Code(s): 30931837, 84243427 Code(s): N17.9 - ACUTE KIDNEY FAILURE, UNSPECIFIED Status: Acute Current Visit: Yes - Problem List Review Problem List Initiated/Reviewed/Updated: Yes - My Orders Last 24 Hours: My Active Orders 04/20/19 14:25 Manager Plan Discontinue [Cardiac Monitoring Discontinue] [RC] Click to Edit 02/14/20 08:16 UA RFX JUDY AND CULT IF INDIC [URIN] Urgent 04/21/19 08:55 Bladder Scan [RC] URGENT 04/21/19 21:00 Doxazosin [Cardura] 8 mg PO BEDTIME - Plan Plan:: This 64 year old male admitted for left femoral fracture, has significant hx of PAD with grafting and stenting to lower extremities and on Coumadin for anticoagulation. 1. L femoral fracture: - hallucinations overnight, narcotics and tramadol disconitnued. Tylenol only for now - Restarted Coumadin, bridge with Lovenox. Monitor INR daily - Continue bowel regimen, had BM today. Counseled on home management of this. - Continue PT today. 2. AMS: - Likely secondary to narcotics and Tramadol. All stopped, only Tylenol for now for pain - Head CT negative - No other metabolic cause, ammonia normal. Confirms scant to no alcohol use. ABG stable. - Improved since overnight, monitor while narcotics clear system 3. HTN: - Stable - Continue antihypertensive, Amlodipine. On telemetry. 4. PAD - Continue Coumadin today, INR 1.4. Continue Lovenox bridge therapy. - Consult Pharmacy for Coumadin therapy. 5. New onset DM type 2: - DM educator consult this afternoon to allow for patient to be more alert and less sedated from pain meds for education. - Novolog SSI with meals. - Likely DC home on Metformin. VTE prophylaxis: Coumadin, Lovenox GI prophylaxis: Protonix IV Code status: FULL Code Dispo: 1-2 days pending improved mentation.
[2019-04-21] MEDS: Docusate Sodium 100 MG Cap PO SCH ×2 (09:05→20:34)
[2019-04-21] MEDS: Finasteride 5 MG Tab PO SCH (09:06)
[2019-04-21] MEDS: Rosuvastatin 10 MG Tab PO SCH (09:07)
[2019-04-21] MEDS: amLODIPine 5 MG Tab PO SCH (09:09)
[2019-04-21] MEDS: Polyethylene Glycol 3350 Powder 17 GM Packet PO SCH (09:15)
[2019-04-21] MEDS: Enoxaparin 100 MG/1 ML Syringe SUBCUT SCH ×2 (10:03→20:35)
--- NOTE | 2019-04-21 11:34 | CT ---
INDICATION: Confusion TECHNIQUE: CT head without contrast. COMPARISON: 12/06/2018 FINDINGS: CSF spaces: Within normal limits for age. Brain parenchyma and extra-axial spaces: The arroyo-white differentiation is normal. No sign of mass, hemorrhage, or midline shift. No extra-axial fluid collection. Skull base and calvarium: Unchanged complete opacification of the right maxillary sinus. Retention cyst is in the left maxillary sinus. The visualized orbits are grossly unremarkable. No skull fractures. IMPRESSION: No acute abnormality and no change from the prior exam. Please note that all CT scans at this facility use dose modulation, iterative reconstruction, and/or weight-based dosing when appropriate to reduce radiation dose to as low as reasonably achievable. Dictated by Azar Chanel MD @ Apr 21 2019 11:29AM Signed by Dr. Azar Chanel @ Apr 21 2019 11:33AM
[2019-04-21] MEDS ORDERED: Warfarin 5 MG Tab PO ONE (14:00)
[2019-04-21] MEDS: Acetaminophen 325 MG Tab PO PRN ×2 (14:37→19:39)
[2019-04-21] MEDS ORDERED: Doxazosin 4 MG Tab PO SCH (21:00)
[2019-04-22] MEDS: Phosphorus #1 250 MG Tab PO SCH ×3 (00:51→11:31)
[2019-04-22 06:16] LABS: CARBON DIOXIDE,CO2 28.7 mmol/L (21.0-32.0); POTASSIUM,K 3.6 mmol/L (3.5-5.1)
[2019-04-22] MEDS: Pantoprazole 40 MG Tab.CR PO SCH (07:12)
[2019-04-22] MEDS: Acetaminophen 325 MG Tab PO PRN (07:15)
[2019-04-22] MEDS: Insulin Aspart 100 Units/ML 3 ML Pen SUBCUT SCH ×2 (07:37→11:53)
[2019-04-22] MEDS: Finasteride 5 MG Tab PO SCH (09:16)
[2019-04-22] MEDS: amLODIPine 5 MG Tab PO SCH (09:16)
[2019-04-22] MEDS: Rosuvastatin 10 MG Tab PO SCH (09:17)
[2019-04-22] MEDS: Enoxaparin 100 MG/1 ML Syringe SUBCUT SCH (09:18)
[2019-04-22] MEDS: Polyethylene Glycol 3350 Powder 17 GM Packet PO SCH (09:21)
[2019-04-22] MEDS: Docusate Sodium 100 MG Cap PO SCH (09:21)
--- NOTE | 2019-04-22 12:24 | PCM.DCSUM1 ---
Discharge Summary - Hospital Course HPI Initial Comments: 64 year old male with H/O left iliac artery stent and lower extremity arterial bypass grafting in 2007, On warfarin for peripheral vascular disease and thrombosis comes n for left hip pain. He suffered a mechanical fall when he slipped on the ice. In ER x-rays and CT scan, reveled a displaced femoral neck fracture. He denies head trauma or LOC, chest pain, SOB, Dizziness, palpitation. Complaining of severe hip pain. Patient underwent a nerve block for pain control. Ortho recommended holding surgery till Wednesday due to patient being on Coumadin. Patient is being admitted to hospital for further management. 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 AFter surgery patient was bridged with Lovenox and his Coumadin was resumed. Patient had adverse reaction to narco and tramadol when he started to have some visual hallucinations. CT head was negative, all his opioids were stopped and he was started on Tylenol. His mentation was back to baseline there after. Patient underwent physical therapy. Patient was eventually discharged home , he was medially stable, INR was slightly sub-therapeutic but patient wanted to go home and recheck his INR in 2 days and adjust it outpatient. Patient was instructed to take 20mg of Coumadin that night and resume his usual dose there after and check INR in 2 days. Script was provided. Patient is medically stable for dc and recommended to fu with ortho and pcp on outpatient basis. Patient was also found to be diabetic with HBA1c of 6.4, Patient wanted to try diet and lifestyle modifications first and fu with PCP. Diagnosis: Stroke: No - Discharge Data Discharge Date: 04/22/19 Discharge Disposition: Home, W Home Health Agency 06 Condition: Good - Referral to Home Health Date of Face to Face Encounter: 04/24/19 Reason for Homebound Status: recent hip surgery Primary Care Physician: PCP None Skilled Need: ambulation - Discharge Diagnosis/Problem(s) (1) Subcapital fracture of neck of left femur SNOMED Code(s): 113763882 ICD Code: S72.012A - UNSP INTRACAPSULAR FRACTURE OF LEFT FEMUR, INIT FOR CLOS FX Status: Acute Qualifiers: Encounter type: initial encounter Fracture type: closed Qualified Code(s) : S72.012A - Unspecified intracapsular fracture of left femur, initial encounter for closed fracture (2) Hematoma SNOMED Code(s): 484927314 ICD Code: T14.8XXA - OTHER INJURY OF UNSPECIFIED BODY REGION, INITIAL ENCOUNTER Status: Acute (3) Chronic anticoagulation SNOMED Code(s): 240416675 ICD Code: Z79.01 - 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 OF ANTICOAGULANTS Status: Chronic (4) Dyslipidemia SNOMED Code(s): 248802127 ICD Code: E78.5 - HYPERLIPIDEMIA, UNSPECIFIED Status: Chronic (5) HTN (hypertension) SNOMED Code(s): 31495814 ICD Code: I10 - ESSENTIAL (PRIMARY) HYPERTENSION Status: Chronic Qualifiers: Hypertension type: essential hypertension Qualified Code(s): I10 - Essential (primary) hypertension - Patient Summary/Data Operative Procedure(s) Performed: Left total hip replacement with Montilla and Nephew R3 acetabular components and Synergy porous femoral stem and Oxinium femoral head Consults: Consultations 04/17/19 08:22 Consult to Physician [CONS] Urgent 04/17/19 16:39 PT Evaluation and Treatment [CONS] Routine 04/18/19 10:29 Consult to Diabetic Nurse Specialist [CONS] Routine - Patient Instructions Diet: Heart Healthy Diet, Diabetic Diet Activity: As Tolerated, No Strenuous Activities Driving: Do Not Drive Showering/Bathing: Shower in AM Wound/Incision Care: Keep Operative Site/Wound Site Clean and Dry Notify Provider of: Fever, Increased Pain, Swelling and Redness, Drainage, Nausea and/or Vomiting - Discharge Plan *PRESCRIPTION DRUG MONITORING PROGRAM REVIEWED*: Yes *COPY OF PRESCRIPTION DRUG MONITORING REPORT IN PATIENT FAMILIA: Yes Prescriptions/Med Rec: Acetaminophen [Tylenol] 650 mg PO Q4H PRN #30 tablet PRN Reason: Pain Docusate Sodium [Colace] 100 mg PO BID #30 cap polyethylene glycoL 3350 [MiraLAX] 17 gm PO DAILY #7 packet Home Medications: Home Meds Warfarin [Coumadin] 10 mg PO SUTUWETHSA 12/04/18 [History] Doxazosin [Cardura] 8 mg PO BEDTIME 12/05/18 [History] Finasteride 5 mg PO DAILY 12/05/18 [History] Lansoprazole [Prevacid] 30 mg PO DAILY 12/05/18 [History] Rosuvastatin Calcium 5 mg PO DAILY 12/05/18 [History] amLODIPine Besylate [Amlodipine Besylate] 10 mg PO DAILY 12/05/18 [History] Fluticasone Propionate [Flonase] 1 spray NASBOTH DAILY bottle 12/07/18 [Rx] Loratadine [Claritin] 10 mg PO DAILY tablet 12/07/18 [Rx] Warfarin [Coumadin] 0 mg PO .NO WARF ON MON/FRI 04/18/19 [History] Acetaminophen [Tylenol] 650 mg PO Q4H PRN #30 tablet 04/22/19 [Rx] Docusate Sodium [Colace] 100 mg PO BID #30 cap 04/22/19 [Rx] polyethylene glycoL 3350 [MiraLAX] 17 gm PO DAILY #7 packet 04/22/19 [Rx] Oxygen Therapy Mode: Room Air Patient Handouts: Acetaminophen; Hydrocodone tablets or capsules, Total Hip Replacement, Fuba-we-Wjlp, Acetaminophen tablets or caplets, Total Hip Replacement, Care After, Airt-vq-Lpcn, Docusate capsules, Polyethylene Glycol powder Referrals: Pati Dorado MD [Physician] - 05/01/19 10:30 am (Arrive 15 minutes early with a photo ID and insruance card. ) Jinny Barbosa NP [Nurse Practitioner] - 05/04/19 9:40 am - Discharge Summary/Plan Comment DC Time >30 min.: No - Patient Data Vitals - Most Recent: Last Vital Signs Temp 36.7 C 04/22/19 11:43 Pulse 89 04/22/19 11:43 Resp 18 04/22/19 11:43 BP 145/61 H 04/22/19 11:43 Pulse Ox 97 04/22/19 11:43 Weight - Most Recent: 99.79 kg I&O - Last 24 hours: Intake & Output 04/21/19 04/22/19 04/22/19 22:59 06:59 14:59 Intake Total 400 1800 Output Total 950 1450 Balance -550 350 Lab Results - Last 24 hrs: Laboratory Results - last 24 hr 04/21/19 04/22/19 04/22/19 Range/Units 17:11 05:40 05:40 WBC 6.56 (4.0-11.0) K/uL RBC 4.11 L (4.50-5.90) M/uL Hgb 11.7 L (13.0-17.0) g/dL Hct 35.5 L (38.0-50.0) % MCV 86.4 (80.0-98.0) fL MCH 28.5 (27.0-32.0) pg MCHC 33.0 (31.0-37.0) g/dL RDW Std Deviation 45.2 (28.0-62.0) fl RDW Coeff of Mariele 14 (11.0-15.0) % Plt Count 324 (150-400) K/uL MPV 9.30 (7.40-12.00) fL Neut % (Auto) 74.1 (48.0-80.0) % Lymph % (Auto) 9.1 L (16.0-40.0) % Harrison % (Auto) 13.7 (0.0-15.0) % Eos % (Auto) 2.6 (0.0-7.0) % Baso % (Auto) 0.5 (0.0-1.5) % Neut # (Auto) 4.9 (1.4-5.7) K/uL Lymph # (Auto) 0.6 (0.6-2.4) K/uL Harrison # (Auto) 0.9 H (0.0-0.8) K/uL Eos # (Auto) 0.2 (0.0-0.7) K/uL Baso # (Auto) 0.0 (0.0-0.1) K/uL Nucleated RBC % 0.0 /100WBC Nucleated RBCs # 0 K/uL INR 1.86 Sodium (136-148) mmol/L Potassium (3.5-5.1) mmol/L Chloride (98-107) mmol/L Carbon Dioxide (21.0-32.0) mmol/L BUN (7.0-18.0) mg/dL Creatinine (0.8-1.3) mg/dL Est Cr Clr Drug Dosing mL/min Estimated GFR (MDRD) ml/min Glucose (74-106) mg/dL POC Glucose 88 (60-110) mg/dL Calcium (8.5-10.1) mg/dL Phosphorus (2.6-4.7) mg/dL Magnesium (1.8-2.4) mg/dL 04/22/19 04/22/19 04/22/19 Range/Units 05:40 06:10 10:58 WBC (4.0-11.0) K/uL RBC (4.50-5.90) M/uL Hgb (13.0-17.0) g/dL Hct (38.0-50.0) % MCV (80.0-98.0) fL MCH (27.0-32.0) pg MCHC (31.0-37.0) g/dL RDW Std Deviation (28.0-62.0) fl RDW Coeff of Marilee (11.0-15.0) % Plt Count (150-400) K/uL MPV (7.40-12.00) fL Neut % (Auto) (48.0-80.0) % Lymph % (Auto) (16.0-40.0) % Harrison % (Auto) (0.0-15.0) % Eos % (Auto) (0.0-7.0) % Baso % (Auto) (0.0-1.5) % Neut # (Auto) (1.4-5.7) K/uL Lymph # (Auto) (0.6-2.4) K/uL Harrison # (Auto) (0.0-0.8) K/uL Eos # (Auto) (0.0-0.7) K/uL Baso # (Auto) (0.0-0.1) K/uL Nucleated RBC % /100WBC Nucleated RBCs # K/uL INR Sodium 143 (136-148) mmol/L Potassium 3.6 (3.5-5.1) mmol/L Chloride 105 (98-107) mmol/L Carbon Dioxide 28.7 (21.0-32.0) mmol/L BUN 26 H (7.0-18.0) mg/dL Creatinine 1.3 (0.8-1.3) mg/dL Est Cr Clr Drug Dosing 61.95 mL/min Estimated GFR (MDRD) 55.8 ml/min Glucose 139 H (74-106) mg/dL POC Glucose 130 H 195 H (60-110) mg/dL Calcium 8.4 L (8.5-10.1) mg/dL Phosphorus 2.9 (2.6-4.7) mg/dL Magnesium 2.0 (1.8-2.4) mg/dL Med Orders - Current: Current Medications Acetaminophen (Tylenol) 650 mg PO Q4H PRN PRN Reason: Pain Last Admin: 04/22/19 07:15 Dose: 650 mg Al Hydroxide/Mg Hydroxide (Mag-Al Plus) 30 ml PO Q4H PRN PRN Reason: Indigestion Albuterol/Ipratropium (Duoneb 3.0-0.5 Mg/3 Ml) 3 ml NEB Q4HRRT PRN PRN Reason: Shortness Of Breath/wheezing Last Admin: 04/16/19 21:18 Dose: 3 ml Amlodipine Besylate (Norvasc) 10 mg PO DAILY [facility] Last Admin: 04/22/19 09:16 Dose: 10 mg Bisacodyl (Dulcolax) 10 mg RECTAL DAILY PRN PRN Reason: Constipation Diphenhydramine HCl (Benadryl) 25 - 50 mg PO Q6H PRN PRN Reason: Itching Docusate Sodium (Colace) 100 mg PO BID [facility] Last Admin: 04/22/19 09:21 Dose: Not Given Doxazosin Mesylate (Cardura) 8 mg PO BEDTIME [facility] Last Admin: 04/21/19 20:40 Dose: 8 mg Enoxaparin Sodium (Lovenox) 100 mg SUBCUT Q12H [facility] Last Admin: 04/22/19 09:18 Dose: 100 mg Finasteride (Proscar) 5 mg PO DAILY [facility] Last Admin: 04/22/19 09:16 Dose: 5 mg Insulin Aspart (Novolog) 0 unit SUBCUT TIDAC [facility]; Protocol Last Admin: 04/22/19 11:53 Dose: Not Given Naloxone HCl (Narcan) 0.04 mg IVPUSH Q3M PRN PRN Reason: Respiratory Depression Ondansetron HCl (Zofran) 4 mg IVPUSH Q6H PRN PRN Reason: Nausea/Vomiting Last Admin: 04/20/19 17:11 Dose: 4 mg Pantoprazole Sodium (Protonix) 40 mg PO ACBREAKFAST [facility] Last Admin: 04/22/19 07:12 Dose: 40 mg Polyethylene Glycol (Miralax) 17 gm PO DAILY [facility] Last Admin: 04/22/19 09:21 Dose: Not Given Rosuvastatin Calcium (Crestor) 5 mg PO DAILY [facility] Last Admin: 04/22/19 09:17 Dose: 5 mg Sodium Chloride (Saline Flush) 10 ml FLUSH ASDIRECTED PRN PRN Reason: Keep Vein Open Sodium Chloride (Saline Flush) 2.5 ml FLUSH ASDIRECTED PRN PRN Reason: Keep Vein Open Last Admin: 04/18/19 14:40 Dose: 2.5 ml Sodium Phosphate (Neutra-Phos) 250 mg PO QID [facility] Last Admin: 04/22/19 11:31 Dose: 250 mg Warfarin Sodium (Coumadin Ask) 1 each PO DAILY@1400 [facility] Last Admin: 04/21/19 14:34 Dose: Not Given Warfarin Sodium (Coumadin) 10 mg PO DAILY@1400 ONE Stop: 04/22/19 14:01 Discontinued Medications Acetaminophen (Tylenol Extra Strength) 1,000 mg PO Q6H PRN PRN Reason: Pain Last Admin: 04/21/19 09:58 Dose: 1,000 mg Hydrocodone Bitart/Acetaminophen ([place] 325-10 Mg) 1 - 2 tab PO Q6H PRN PRN Reason: Pain Last Admin: 04/18/19 05:32 Dose: 2 tab Hydrocodone Bitart/Acetaminophen ([place] 325-10 Mg) 1 tab PO Q6H PRN PRN Reason: Pain Last Admin: 04/20/19 10:47 Dose: 1 tab Albuterol (Proventil Neb Soln) 2.5 mg NEB ONETIME PRN PRN Reason: Wheezing Last Admin: 04/17/19 16:45 Dose: 2.5 mg Atropine Sulfate (Atropine 0.1 Mg/Ml) 0.5 mg IVPUSH ASDIRECTED PRN PRN Reason: Hypo-perfusion Atropine Sulfate (Atropine 0.1 Mg/Ml) 1 mg IVPUSH ASDIRECTED PRN PRN Reason: Hypo-Perfusion Bupivacaine HCl (Sensorcaine-Mpf 0.5%) Confirm Administered Dose 10 ml .ROUTE .STK-MED ONE Stop: 04/15/19 17:46 Bupivacaine HCl (Marcaine 0.5%) Confirm Administered Dose 30 ml .ROUTE .STK-MED ONE Stop: 04/15/19 17:49 Cefazolin Sodium/Dextrose (Ancef) Confirm Administered Dose 2 gm IV .STK-MED ONE Stop: 04/17/19 13:05 Celecoxib (Celebrex) 200 mg PO DAILY [facility] Last Admin: 04/18/19 08:39 Dose: 200 mg Dextrose/Water (Dextrose 50% In Water) 50 ml IVPUSH ASDIRECTED PRN PRN Reason: Hypoglycemia Diphenhydramine HCl (Benadryl) 25 mg IVPUSH Q6H PRN PRN Reason: Itching Diphenhydramine HCl (Benadryl) 25 mg PO Q6H PRN PRN Reason: Itching Diphenhydramine HCl (Benadryl) 25 mg IVPUSH Q6H PRN PRN Reason: Itching Diphenhydramine HCl (Benadryl) 25 mg PO Q6H PRN PRN Reason: Itching Docusate Sodium (Colace) 100 mg PO DAILY [facility] Last Admin: 04/17/19 11:12 Dose: Not Given Docusate Sodium (Colace) 100 mg PO BID PRN PRN Reason: Constipation Epinephrine HCl (Epinephrine 1:10,000) 1 mg IVPUSH ASDIRECTED PRN PRN Reason: ACLS Guidelines Fentanyl (Fentanyl) 50 mcg IVPUSH ONETIME ONE Stop: 04/15/19 16:11 Last Admin: 04/15/19 16:25 Dose: 50 mcg Fentanyl (Sublimaze) Confirm Administered Dose 100 mcg .ROUTE .STK-MED ONE Stop: 04/15/19 16:17 Last Admin: 04/15/19 16:27 Dose: Not Given Fentanyl (Sublimaze) Confirm Administered Dose 100 mcg .ROUTE .STK-MED ONE Stop: 04/17/19 12:26 Fentanyl (Sublimaze) Confirm Administered Dose 100 mcg .ROUTE .STK-MED ONE Stop: 04/17/19 13:22 Fentanyl (Sublimaze) 50 mcg IVPUSH Q5M PRN PRN Reason: Pain Hydromorphone HCl (Dilaudid) 1 mg IVPUSH ONETIME ONE Stop: 04/15/19 17:41 Last Admin: 04/15/19 17:49 Dose: 1 mg Sodium Chloride (Normal Saline) 1,000 mls @ 125 mls/hr IV ASDIRECTED [facility] Last Admin: 04/17/19 12:46 Dose: 125 mls/hr Pantoprazole Sodium 40 mg/ (Sodium Chloride) 10 mls @ 300 mls/hr IV Q12HR [facility] Last Admin: 04/18/19 08:35 Dose: 300 mls/hr Magnesium Sulfate 2 gm/ Premix 50 mls @ 50 mls/hr IV ONETIME ONE Stop: 04/16/19 04:35 Last Admin: 04/16/19 04:35 Dose: 50 mls/hr Cefazolin Sodium/Dextrose 2 gm (/ Premix) 50 mls @ 100 mls/hr IV ONETIME ONE Stop: 04/17/19 08:59 Last Admin: 04/17/19 08:35 Dose: 100 mls/hr Ropivacaine 49.25 ml/Ketorolac Tromethamine 30 mg/Epinephrine HCl 0.5 mg/ Clonidine HCl 80 mcg/ Sodium Chloride 75 mls @ 50 mls/sec INJECT ASDIRECTED [facility] Tranexamic Acid 1,000 mg/ (Sodium Chloride) 110 mls @ 600 mls/hr IV ASDIRECTED ONE Stop: 04/17/19 13:10 Last Admin: 04/17/19 17:09 Dose: Not Given Cefazolin Sodium/Dextrose 2 gm (/ Premix) 50 mls @ 100 mls/hr IV Q8H [facility] Stop: 04/18/19 05:29 Last Admin: 04/18/19 05:06 Dose: 100 mls/hr Magnesium Sulfate 2 gm/ Premix 50 mls @ 50 mls/hr IV ONETIME ONE Stop: 04/18/19 08:44 Last Admin: 04/18/19 08:25 Dose: 50 mls/hr Sodium Chloride (Normal Saline) 1,000 mls @ 150 mls/hr IV Q6H [facility] Stop: 04/19/19 14:44 Last Admin: 04/19/19 09:35 Dose: 150 mls/hr Lidocaine HCl (Xylocaine 1%) Confirm Administered Dose 20 ml .ROUTE .STK-MED ONE Stop: 04/15/19 17:46 Lidocaine HCl (Xylocaine-Mpf 1%) Confirm Administered Dose 5 ml .ROUTE .STK-MED ONE Stop: 04/17/19 12:26 Lidocaine HCl (Xylocaine-Mpf 1%) Confirm Administered Dose 5 ml .ROUTE .STK-MED ONE Stop: 04/17/19 15:29 Midazolam HCl (Versed 1 Mg/Ml) Confirm Administered Dose 2 mg .ROUTE .STK-MED ONE Stop: 04/17/19 12:26 Midazolam HCl (Versed 1 Mg/Ml) Confirm Administered Dose 2 mg .ROUTE .STK-MED ONE Stop: 04/17/19 16:22 Midazolam HCl (Versed 1 Mg/Ml) Confirm Administered Dose 2 mg .ROUTE .STK-MED ONE Stop: 04/17/19 16:28 Morphine Sulfate (Morphine) 4 mg IVPUSH ONETIME ONE Stop: 04/15/19 14:31 Last Admin: 04/15/19 14:44 Dose: 4 mg Morphine Sulfate (Morphine) 2 mg IVPUSH Q4H PRN PRN Reason: Pain (severe 7-10) Stop: 04/16/19 16:52 Last Admin: 04/15/19 19:59 Dose: 2 mg Morphine Sulfate (Morphine Plating Inspector 30 Mg In 30 Ml) 0 mg IV ASDIRECTED [facility]; Protocol Last Admin: 04/16/19 05:50 Dose: 30 mg Morphine Sulfate (Morphine Plating Inspector 30 Mg In 30 Ml) 0 mg IV ASDIRECTED [facility]; Protocol Last Admin: 04/17/19 05:15 Dose: 30 mg Naloxone HCl (Narcan) 0.04 mg IVPUSH Q3M PRN PRN Reason: Respiratory Depression Naloxone HCl (Narcan) 0.1 mg IVPUSH ASDIRECTED PRN PRN Reason: Respiratory Depression Ondansetron HCl (Zofran) 4 mg IVPUSH ONETIME ONE Stop: 04/15/19 14:31 Last Admin: 04/15/19 14:40 Dose: 4 mg Ondansetron HCl (Zofran) 4 mg IVPUSH Q6H PRN PRN Reason: Nausea/Vomiting Ondansetron HCl (Zofran) 4 mg IVPUSH Q6H PRN PRN Reason: Nausea/Vomiting Phenylephrine HCl (Jadiel-Synephrine) Confirm Administered Dose 10 mg .ROUTE .STK- MED ONE Stop: 04/17/19 12:26 Phenylephrine HCl (Phenylephrine In Ns 100 Mcg/Ml) Confirm Administered Dose 1 mg .ROUTE .STK-MED ONE Stop: 04/17/19 14:41 Potassium Chloride (Klor-Con M20) 20 meq PO ONETIME ONE Stop: 04/18/19 22:04 Last Admin: 04/18/19 22:53 Dose: 20 meq Propofol (Diprivan 20 Ml) Confirm Administered Dose 400 mg .ROUTE .STK-MED ONE Stop: 04/17/19 12:26 Propofol (Diprivan 20 Ml) Confirm Administered Dose 400 mg .ROUTE .STK-MED ONE Stop: 04/17/19 14:02 Propofol (Diprivan 20 Ml) Confirm Administered Dose 200 mg .ROUTE .STK-MED ONE Stop: 04/17/19 14:10 Sodium Phosphate (Neutra-Phos) 250 mg PO QID [facility] Last Admin: 04/19/19 06:28 Dose: 250 mg Tramadol HCl (Ultram) 50 - 100 mg PO Q6H PRN PRN Reason: Pain Last Admin: 04/20/19 14:25 Dose: 100 mg Tranexamic Acid (Cyklokapron) Confirm Administered Dose 1,000 mg .ROUTE .STK- MED ONE Stop: 04/17/19 12:45 Warfarin Sodium (Coumadin) 20 mg PO ONETIME ONE Stop: 04/17/19 21:01 Last Admin: 04/17/19 20:55 Dose: 20 mg Warfarin Sodium (Coumadin) 10 mg PO Q24H [facility] Warfarin Sodium (Coumadin Ask) 1 each PO ONETIME ONE Stop: 04/18/19 09:19 Last Admin: 04/18/19 11:36 Dose: Not Given Warfarin Sodium (Coumadin) 10 mg PO ONETIME ONE Stop: 04/18/19 14:01 Last Admin: 04/18/19 14:42 Dose: 10 mg Warfarin Sodium (Coumadin) 15 mg PO 04/20/19@1400 [facility] Stop: 04/20/19 14:01 Last Admin: 04/20/19 14:26 Dose: 15 mg Warfarin Sodium (Coumadin) 15 mg PO DAILY@1400 ONE Stop: 04/21/19 14:01 Last Admin: 04/21/19 14:33 Dose: 15 mg
[2019-04-22] MEDS ORDERED: Warfarin 10 MG Tab PO ONE (14:00)
== END 2019-04-22 13:51 | disposition home health service (06) | DRG 301 ==
LOC: MW.ED 13:51 → MW.MS 16:11
PROVIDERS: ADMIT Student in an Organized Health Care Education/Training Program; ATTEND Student in an Organized Health Care Education/Training Program
PROC: 0SRB06Z Replacement of Left Hip Joint with Oxidized Zirconium on Polyethylene Synthetic Substitute, Open Approach (ICD-10-PCS; principal; 2019-04-17)
DX: S72.012A Unspecified intracapsular fracture of left femur, initial encounter for closed fracture (principal); R44.1 Visual hallucinations; T40.605A Adverse effect of unspecified narcotics, initial encounter; T40.4X5A Adverse effect of other synthetic narcotics, initial encounter; E78.5 Hyperlipidemia, unspecified; I73.9 Peripheral vascular disease, unspecified; E11.9 Type 2 diabetes mellitus without complications; N17.9 Acute kidney failure, unspecified; E78.00 Pure hypercholesterolemia, unspecified; I10 Essential (primary) hypertension; Z79.01 Long term (current) use of anticoagulants; Z88.8 Allergy status to other drugs, medicaments and biological substances; Z79.899 Other long term (current) drug therapy; Z87.891 Personal history of nicotine dependence; W00.0XXA Fall on same level due to ice and snow, initial encounter
CPT/HCPCS: 01214; 36415; 36600; 51702; 51798; 64447; 70450; 70450-26; 71045; 71045-26; 72192; 72192-26; 73501-26-LT; 73501-LT; 73502-26-LT; 73502-LT; 73552-26-LT; 73552-LT; 80048; 80053; 81001; 82140; 82247; 82803; 82962; 83036; 83735; 83880; 84075; 84100; 84443; 84450; 84460; 84484; 85014; 85018; 85025; 85610; 85730; 86850; 86900; 86901; 86920; 86921; 86922; 93005; 93306; 94640; 94660; 96374; 96375; 97110-GP; 97116-GP; 97161-GP; 97530-GP; 99284; 99285-25; A9270-GY; C9113; J0171; J0690; J0735; J1170; J1650; J1815-GY; J1885; J2001; J2250; J2270; J2274; J2370; J2405; J2704; J2795; J3010; J3475; J3490; J7030; J7050; J7620-GY

== ENCOUNTER 2020-01-02 09:20 | Day surgery (SDC) | payer BC, OTHER ==
[~2020-01-02 09:20] MED LIST: Acetaminophen 1,000 MG in Premix Bag 1 BAG IV PRN; Lactated Ringers 1,000 ML IV SCH; Sodium Chloride 0.9% 10 ML SDV IV PRN; Sodium Chloride 0.9% 10 ML Syringe FLUSH PRN; Sodium Chloride 0.9% 2.5 ML Syringe FLUSH PRN; ceFAZolin 1 GM in Premix Bag 1 BAG IV ONE
--- NOTE | 2020-01-02 11:20 | PCM.PREANE ---
Preanesthetic Assessment - Anesthesia/Transfusion/Family Hx Anesthesia History: Prior Anesthesia Reaction Other Type of Anesthesia Reaction Comment: states was disorientated after waking up from anesthesia Family History of Anesthesia Reaction: No Transfusion History: No Prior Transfusion(s) Intubation History: Unknown - Physical Assessment NPO Status Date: 01/01/20 Height: 5 ft 11 in Weight: 102.965 kg ASA Class: 3 Mental Status: Alert & Oriented x3 Airway Class: Mallampati = 2 Dentition: Reports: Normal Dentition ROM/Head Extension: Full Lungs: Clear to Auscultation, Normal Respiratory Effort Cardiovascular: Regular Rate, Regular Rhythm - Allergies Allergies/Adverse Reactions: Allergies Allergy/AdvReac Type Severity Reaction Status Date / Time propoxyphene [From Darvon] Allergy Nausea Verified 12/27/19 12:26 - Blood Blood Available: No - Anesthesia Plan Pre-Op Medication Ordered: None - Acknowledgements Anesthesia Type Planned: General Anesthesia Pt an Appropriate Candidate for the Planned Anesthesia: Yes Alternatives and Risks of Anesthesia Discussed w Pt/Guardian: Yes Pt/Guardian Understands and Agrees with Anesthesia Plan: Yes Additional Comments: PMH: leiden factor V, gerd, PVOD s/p fem pop and illiac stent, afib- now in SR, ckd3, BPH, PLAN: ga/lma PreAnesthesia Questionnaire HEENT History: Reports: None Cardiovascular History: Reports: Blood Clots/VTE/DVT, High Cholesterol, Hypertension, PVD, Stents Other Cardiovascular History: Arterial procedure in Left leg due to clogged artery; states had a stent placed in 2007 Respiratory History: Reports: None Gastrointestinal History: Reports: None Genitourinary History: Reports: None Musculoskeletal History: Neurological History: Reports: None Psychiatric History: Reports: None Endocrine/Metabolic History: Reports: Obesity/BMI 30+ Other Endocrine/Metabolic History: states is borderline diabetic Hematologic History: Reports: Anticoagulation Therapy Immunologic History: Reports: None Other Oncologic History: states in 2000 had a skin lesion from knee cap removed by oracle pl sql developer that stated it was cancerous. - Infectious Disease History Infectious Disease History: Reports: Chicken Pox, Measles, Mumps Other Infectious Disease History: positive covid test 12/08/19 - Past Surgical History Head Surgeries/Procedures: Reports: None Cardiovascular Surgical History: Reports: Vascular Surgery Musculoskeletal Surgical History: Reports: Hip Replacement Dermatological Surgical History: Reports: Skin Biopsy - SUBSTANCE USE Tobacco Use Status *Q: Former Tobacco User - HOME MEDS Home Medications: Home Meds Warfarin [Coumadin] 10 mg PO SUTUWETHSA 12/04/18 [History] Doxazosin [Cardura] 8 mg PO BEDTIME 12/05/18 [History] Finasteride 5 mg PO DAILY 12/05/18 [History] Lansoprazole [Prevacid] 30 mg PO DAILY 12/05/18 [History] Rosuvastatin Calcium 5 mg PO DAILY 12/05/18 [History] amLODIPine Besylate [Amlodipine Besylate] 10 mg PO BEDTIME 12/05/18 [History] Acetaminophen [Tylenol] 650 mg PO Q4H PRN #30 tablet 04/22/19 [Rx] - CURRENT (IN HOUSE) MEDS Current Meds: Current Medications Fentanyl (Sublimaze) 50 mcg IVPUSH Q5M PRN PRN Reason: Pain Lactated Ringer's (Ringers, Lactated) 1,000 mls @ 100 mls/hr IV ASDIRECTED [facility] Acetaminophen 1,000 mg/ Premix 100 mls @ 400 mls/hr IV Q6H PRN PRN Reason: Pain Sodium Chloride (Saline Flush) 10 ml FLUSH ASDIRECTED PRN PRN Reason: Keep Vein Open Sodium Chloride (Normal Saline) 10 ml IV ASDIRECTED PRN PRN Reason: IV Use Sodium Chloride (Saline Flush) 2.5 ml FLUSH ASDIRECTED PRN PRN Reason: Keep Vein Open Discontinued Medications Lactated Ringer's (Ringers, Lactated) 1,000 mls @ 100 mls/hr IV ASDIRECTED [facility] Cefazolin Sodium/Dextrose 1 gm (/ Premix) 50 mls @ 100 mls/hr IV ONETIME ONE Stop: 11/28/19 00:30 Sodium Chloride (Saline Flush) 10 ml FLUSH ASDIRECTED PRN PRN Reason: Keep Vein Open Sodium Chloride (Saline Flush) 2.5 ml FLUSH ASDIRECTED PRN PRN Reason: Keep Vein Open Sodium Chloride (Normal Saline) 10 ml IV ASDIRECTED PRN PRN Reason: IV Use
[2020-01-02] MEDS ORDERED: Rocuronium Bromide 50 MG/5 ML Syringe ONE (11:25)
[2020-01-02] MEDS ORDERED: Glycopyrrolate 0.2 MG/ML SDV ONE (11:25)
[2020-01-02] MEDS ORDERED: fentaNYL 250 MCG/5 ML SDV ONE (11:26)
[2020-01-02] MEDS ORDERED: Midazolam 1 MG/ML 2 ML SDV ONE (11:26)
[2020-01-02] MEDS ORDERED: Propofol 200 MG/20 ML SDV ONE (11:26)
[2020-01-02] MEDS ORDERED: Lidocaine 2% 5 ML SDV ONE (11:29)
[2020-01-02] MEDS ORDERED: Ondansetron 4 MG/2 ML SDV ONE (11:29)
[2020-01-02] MEDS ORDERED: Ketorolac 30 MG/ML SDV ONE (11:29)
[2020-01-02] MEDS ORDERED: fentaNYL 100 MCG/2 ML SDV ONE (11:56)
[2020-01-02] MEDS ORDERED: Bupivacaine 0.5% 10 ML SDV ONE (12:44)
[2020-01-02] MEDS ORDERED: Sodium Chloride 0.9% 20 ML ONE (13:13)
[2020-01-02] MEDS ORDERED: ceFAZolin 1 GM Vial ONE (13:13)
[2020-01-02] MEDS ORDERED: Acetaminophen 325 MG Tab PO PRN (13:44)
[2020-01-02] MEDS: fentaNYL 100 MCG/2 ML SDV IVPUSH PRN ×2 (14:08→14:13)
--- NOTE | 2020-01-02 14:55 | PCM48HPAN ---
Post Anesthesia Note - EVALUATION WITHIN 48HRS OF ANESTHETIC Vital Signs in Normal Range: Yes Patient Participated in Evaluation: Yes Respiratory Function Stable: Yes Airway Patent: Yes Cardiovascular Function Stable: Yes Hydration Status Stable: Yes Pain Control Satisfactory: Yes Nausea and Vomiting Control Satisfactory: Yes Mental Status Recovered: Yes Vital Signs: Last Vital Signs Temp 98.2 F 01/02/20 13:49 Pulse 63 01/02/20 14:18 Resp 11 L 01/02/20 14:18 BP 138/70 01/02/20 14:18 Pulse Ox 95 01/02/20 14:18
--- NOTE | 2020-01-02 14:55 | PCM.POSTAN ---
POST ANESTHESIA ASSESSMENT - MENTAL STATUS Mental Status: Alert, Oriented - VITAL SIGNS Vital Signs: Last Vital Signs Temp 98.2 F 01/02/20 13:49 Pulse 63 01/02/20 14:18 Resp 11 L 01/02/20 14:18 BP 138/70 01/02/20 14:18 Pulse Ox 95 01/02/20 14:18 - RESPIRATORY Respiratory Status: Respiratory Rate WNL, Airway Patent, O2 Saturation Stable - CARDIOVASCULAR CV Status: Pulse Rate WNL, Blood Pressure Stable - GASTROINTESTINAL GI Status: No Symptoms - POST OP HYDRATION Hydration Status: Adequate & Stable
--- NOTE | 2020-01-02 16:50 | OR ---
SURGEON: Jacinda Ross M.D. DATE OF PROCEDURE: 01/02/2020 PREOPERATIVE DIAGNOSIS: Right-sided hydrocele. POSTOPERATIVE DIAGNOSIS: Right-sided hydrocele. OPERATION: Hydrocele repair. DESCRIPTION OF PROCEDURE: The patient was given general anesthesia in the supine position. External genital area was prepped and draped in sterile drapes. A transverse incision was made in the right scrotal sac. The testicle and the hydrocele delivered to the outside. Hydrocele fluid was emptied and the hydrocele sac was plicated circumferentially. A small Darcy drain was left in, brought to the outside through a separate stab wound incision below the main incision. The incision was then closed with an interrupted suture of 3-0 chromic, same as was used on the inside to plicate the hydrocele. With that done, the procedure was terminated. The patient was sent to recovery room in good condition. PLAN: I will see him in 2 days to take the Darcy drain out. SANTOS / RODRI /[id number]
[2020-01-02] MEDS ORDERED: Non-Formulary Medication 1 Each (Amlodipine 10 MG) PO SCH (21:00)
[2020-01-02] MEDS ORDERED: Doxazosin 4 MG Tab PO SCH (21:00)
[2020-01-03] MEDS ORDERED: Finasteride 5 MG Tab PO SCH (09:00)
[2020-01-03] MEDS ORDERED: ROSUVASTATIN CALCIUM 5 MG PO SCH (09:00)
[2020-01-03] MEDS ORDERED: Non-Formulary Medication 1 Each (Lansoprazole [Prevacid] 30 MG) PO SCH (09:00)
== END 2020-01-02 16:00 | disposition home or self-care (01) ==
LOC: MW.SDS 09:20
PROVIDERS: ATTEND Urology
DX: N43.3 Hydrocele, unspecified (principal); E78.00 Pure hypercholesterolemia, unspecified; I10 Essential (primary) hypertension; I73.9 Peripheral vascular disease, unspecified; E66.9 Obesity, unspecified; Z01.812 Encounter for preprocedural laboratory examination; Z20.828 Contact with and (suspected) exposure to other viral communicable diseases; Z79.899 Other long term (current) drug therapy; Z79.01 Long term (current) use of anticoagulants; Z88.8 Allergy status to other drugs, medicaments and biological substances; Z68.31 Body mass index [BMI] 31.0-31.9, adult
CPT/HCPCS: 55060; J0131; J0690; J1885; J2001; J2250; J2405; J2704; J3010; J3490; J7120; 00920

== ENCOUNTER 2022-07-29 15:00 | Emergency (ER) | payer BC, OTHER ==
[2022-07-29] MEDS ORDERED: Sodium Chloride 0.9% 1,000 ML IV ONE ×2 (15:46→16:18)
[2022-07-29] MEDS ORDERED: Ondansetron 4 MG/2 ML SDV IVPUSH ONE (15:46)
[2022-07-29 15:53] LABS: BASOPHILS PERCENT AUTO 0.4 % (0.0-1.5); EOSINOPHILS ABSOLUTE AUTO 0.1 K/uL (0.0-0.7); EOSINOPHILS PERCENT AUTO 1.2 % (0.0-7.0); HEMATOCRIT 49.9 % (38.0-50.0); HEMOGLOBIN 16.7 g/dL (13.0-17.0); LYMPHOCYTES ABSOLUTE AUTO 0.6 K/uL (0.6-2.4); LYMPHOCYTES PERCENT AUTO 8.7 % (16.0-40.0); MEAN CORPUSCULAR HEMOGLOBIN 28.6 pg (27.0-32.0); MEAN CORPUSCULAR HGB CONC 33.5 g/dL (31.0-37.0); MEAN CORPUSCULAR VOLUME 85.6 fL (80.0-98.0); MONOCYTES ABSOLUTE AUTO 0.7 K/uL (0.0-0.8); MONOCYTES PERCENT AUTO 10.3 % (0.0-15.0); NEUTROPHILS ABSOLUTE AUTO 5.5 K/uL (1.4-5.7); NEUTROPHILS PERCENT AUTO 79.4 % (48.0-80.0); NRBC ABSOLUTE 0 K/uL; PLATELET COUNT,PLT 273 K/uL (150-400); RED BLOOD CELL COUNT 5.83 M/uL (4.50-5.90); WHITE BLOOD CELL COUNT,WBC 6.88 K/uL (4.0-11.0)
[2022-07-29 16:00] LABS: INR 1.12 (0.86-1.11)
[2022-07-29 16:03] LABS: A/G RATIO 0.9 (0.9-1.6); ALBUMIN 4.2 g/dL (3.4-5.0); BILIRUBIN TOTAL 0.7 mg/dL (0.2-1.0); CALCIUM 8.7 mg/dL (8.5-10.1); CARBON DIOXIDE,CO2 17.6 mmol/L (21.0-32.0); CREATININE 2.2 mg/dL (0.8-1.3); EST CRCL DRUG DOSING (CG) 35.18 mL/min; POTASSIUM,K 4.3 mmol/L (3.5-5.1); PROTEIN TOTAL,TP 9.1 g/dL (6.4-8.2)
[2022-07-29 16:38] LABS: APPEARANCE,URINE CLEAR; COLOR,URINE YELLOW; GLUCOSE,URINE 250 mg/dL (NEGATIVE); KETONES,URINE NEGATIVE (NEGATIVE); LEUKOCYTE ESTERASE,URINE NEGATIVE (NEGATIVE); NITRITE,URINE NEGATIVE (NEGATIVE); OCCULT BLOOD,URINE TRACE-INTACT (NEGATIVE); PH,URINE 5.5 (5.0-8.0); PROTEIN,URINE 30 mg/dL (NEGATIVE); UROBILINOGEN,URINE 0.2 EU/dL (<2.0)
[2022-07-29 16:49] LABS: BILIRUBIN,URINE SMALL (NEGATIVE)
[2022-07-29] MEDS ORDERED: Alum Hydro/Mag Hydro/Simeth XS 15 ML, Metoclopramide 5 MG, Lidocaine 2% 5 ML PO ONE ×3 (16:50)
[2022-07-29 16:53] LABS: EPITHELIAL CELLS,URINE NOT SEEN (NONE-FEW); RBC,URINE 0-5 (0-2/HPF); WBC,URINE NONE SEEN (0-5/HPF)
[2022-07-29 16:54] LABS: HYALINE CASTS,URINE MODERATE (0-2/LPF)
[2022-07-29] MEDS ORDERED: Aluminum Hydroxide/Magnesium Hydroxide/Simethicone XS Susp 30 ML Cup PO ONE (16:56)
== END 2022-07-29 17:56 | disposition home or self-care (01) ==
LOC: MW.ED 15:00
DX: K52.9 Noninfective gastroenteritis and colitis, unspecified (principal); N28.9 Disorder of kidney and ureter, unspecified; E78.00 Pure hypercholesterolemia, unspecified; I10 Essential (primary) hypertension; E66.9 Obesity, unspecified; Z68.29 Body mass index [BMI] 29.0-29.9, adult; Z88.8 Allergy status to other drugs, medicaments and biological substances; Z79.01 Long term (current) use of anticoagulants; Z79.899 Other long term (current) drug therapy
CPT/HCPCS: 36415; 80053; 81001; 83690; 85025; 85610; 87045; 87046; 87324; 87449; 87899; 96361; 96374; 99284; A9270; J2405; J7030

== ENCOUNTER 2023-03-04 13:14 | Inpatient (IN) | payer BC, OTHER ==
[2023-03-04] MEDS ORDERED: Acetaminophen 325 MG Tab PO ONE (13:40)
[2023-03-04] MEDS ORDERED: Lactated Ringers 1,000 ML IV SCH (13:45)
[2023-03-04] MEDS ORDERED: Lactated Ringers 1,000 ML IV ONE (13:47)
[2023-03-04 13:51] LABS: BASOPHILS ABSOLUTE AUTO 0.02 K/uL (0.00-0.20); BASOPHILS PERCENT AUTO 0.4 % (0.0-1.0); EOSINOPHILS ABSOLUTE AUTO 0.01 K/uL (0.00-0.45); EOSINOPHILS PERCENT AUTO 0.2 % (0.0-6.0); HEMOGLOBIN 14.4 g/dL (14.0-18.0); IMMATURE GRAN ABSOLUTE AUTO 0.02 K/uL (0.00-0.05); IMMATURE GRAN PERCENT AUTO 0.4 % (0.0-0.4); LYMPHOCYTES ABSOLUTE AUTO 0.22 K/uL (1.00-4.80); MEAN CORPUSCULAR HGB CONC 32.7 g/dL (32.0-36.0); MEAN CORPUSCULAR VOLUME 88.7 fL (83.0-99.0); MEAN PLATELET VOLUME 10.1 fL (9.4-12.4); MONOCYTES ABSOLUTE AUTO 0.49 K/uL (0.00-0.80); MONOCYTES PERCENT AUTO 8.8 % (0.0-8.0); NEUTROPHILS PERCENT AUTO 86.2 % (41.0-71.0); PLATELET COUNT,PLT 152 K/uL (150-400); RED BLOOD CELL COUNT 4.96 M/uL (4.52-5.90); WHITE BLOOD CELL COUNT,WBC 5.56 K/uL (3.9-11.3)
[2023-03-04] MEDS ORDERED: cefTRIAXone 1 GM in Sodium Chloride 0.9% 50 ML IV ONE (14:23)
[2023-03-04] MEDS ORDERED: Magnesium Sulfate/Water 2 GM in Premix Bag 1 BAG IV ONE (14:24)
[2023-03-04 14:26] LABS: LACTIC ACID 2.1 mmol/L (0.4-2.0)
[2023-03-04 14:29] LABS: CORONAVIRUS COVID-19 NAA NEGATIVE (NEGATIVE); INFLUENZA A NAA POSITIVE (NEGATIVE); INFLUENZA B NAA NEGATIVE (NEGATIVE); RESPIRATORY SYNCYTIAL VIR NAA NEGATIVE (NEGATIVE)
[2023-03-04 14:30] LABS: INR 1.19 (0.86-1.11); PTT,PARTIAL THROMBOPLSTIN TIME 32.2 SEC (23.9-30.7)
[2023-03-04 14:31] LABS: A/G RATIO 0.9 (0.9-1.6); ALBUMIN 3.6 g/dL (3.4-5.0); BILIRUBIN TOTAL 0.9 mg/dL (0.2-1.0); CALCIUM 8.7 mg/dL (8.5-10.1); CARBON DIOXIDE,CO2 24.9 mmol/L (21.0-32.0); CREATININE 2.1 mg/dL (0.8-1.3); EST CRCL DRUG DOSING (CG) 38.58 mL/min; MAGNESIUM 1.9 mg/dL (1.8-2.4); POTASSIUM,K 3.9 mmol/L (3.5-5.1); PROTEIN TOTAL,TP 7.7 g/dL (6.4-8.2); TSH ULTRASENSITIVE 0.46 uIU/mL (0.36-3.74)
[2023-03-04] MEDS ORDERED: Oseltamivir 75 MG Cap PO ONE (14:56)
[2023-03-04] MEDS ORDERED: Oseltamivir 75 MG Cap ONE (15:11)
[2023-03-04] MEDS ORDERED: Albuterol/Ipratropium 3.0-0.5 MG/3 ML Neb Soln NEB ONE (15:29)
[2023-03-04] MEDS: Lactated Ringers 1,000 ML IV SCH (20:19)
[2023-03-04] MEDS ORDERED: metFORMIN 500 MG Tab PO ONE (20:30)
[2023-03-04] MEDS: Acetaminophen 325 MG Tab PO PRN (20:31)
[2023-03-04] MEDS: Apixaban 5 MG Tab PO SCH (21:13)
[2023-03-04] MEDS: Clopidogrel 75 MG Tab PO SCH (21:13)
[2023-03-04] MEDS: Metoprolol Tartrate 25 MG Tab PO SCH (21:14)
[2023-03-04] MEDS: Losartan 50 MG Tab PO SCH (21:14)
[2023-03-04] MEDS: Empagliflozin 10 MG Tab PO SCH (21:16)
[2023-03-04 21:28] LABS: LACTIC ACID 1.7 mmol/L (0.4-2.0)
[2023-03-04 21:53] LABS: BILIRUBIN,URINE NEGATIVE (NEGATIVE); COLOR,URINE YELLOW; GLUCOSE,URINE >=1000 mg/dL (NEGATIVE); KETONES,URINE NEGATIVE (NEGATIVE); LEUKOCYTE ESTERASE,URINE NEGATIVE (NEGATIVE); NITRITE,URINE POSITIVE (NEGATIVE); OCCULT BLOOD,URINE LARGE (NEGATIVE); PH,URINE 5.5 (5.0-8.0); PROTEIN,URINE 100 mg/dL (NEGATIVE); UROBILINOGEN,URINE 0.2 EU/dL (<2.0)
[2023-03-04 22:34] LABS: APPEARANCE,URINE HAZY
[2023-03-04 22:38] LABS: AMORPHOUS SEDIMENT,URINE FEW (NEGATIVE); BACTERIA,URINE FEW (NEGATIVE); EPITHELIAL CELLS,URINE RARE (NONE-FEW); FINE GRANULAR CASTS,URINE 0-1 (NEGATIVE); RBC,URINE 0-1 (0-2/HPF); WBC,URINE 0-2 (0-5/HPF)
[2023-03-04] MEDS: Doxazosin 4 MG Tab PO SCH (23:25)
[2023-03-05] MEDS: Acetaminophen 325 MG Tab PO PRN ×3 (02:32→19:32)
[2023-03-05 03:25] LABS: BASOPHILS ABSOLUTE AUTO 0.01 K/uL (0.00-0.20); BASOPHILS PERCENT AUTO 0.2 % (0.0-1.0); HEMATOCRIT 41.7 % (42.0-52.0); HEMOGLOBIN 13.5 g/dL (14.0-18.0); IMMATURE GRAN ABSOLUTE AUTO 0.02 K/uL (0.00-0.05); IMMATURE GRAN PERCENT AUTO 0.4 % (0.0-0.4); LYMPHOCYTES ABSOLUTE AUTO 0.47 K/uL (1.00-4.80); LYMPHOCYTES PERCENT AUTO 9.1 % (24.0-44.0); MEAN CORPUSCULAR HEMOGLOBIN 28.3 pg (28.0-32.0); MEAN CORPUSCULAR HGB CONC 32.4 g/dL (32.0-36.0); MEAN CORPUSCULAR VOLUME 87.4 fL (83.0-99.0); MEAN PLATELET VOLUME 9.2 fL (9.4-12.4); MONOCYTES ABSOLUTE AUTO 0.54 K/uL (0.00-0.80); MONOCYTES PERCENT AUTO 10.4 % (0.0-8.0); NEUTROPHILS ABSOLUTE AUTO 4.15 K/uL (1.80-7.70); NEUTROPHILS PERCENT AUTO 79.9 % (41.0-71.0); PLATELET COUNT,PLT 144 K/uL (150-400); RED BLOOD CELL COUNT 4.77 M/uL (4.52-5.90); WHITE BLOOD CELL COUNT,WBC 5.19 K/uL (3.9-11.3)
[2023-03-05 03:56] LABS: A/G RATIO 0.8 (0.9-1.6); ALBUMIN 3.2 g/dL (3.4-5.0); BILIRUBIN TOTAL 0.7 mg/dL (0.2-1.0); CALCIUM 8.2 mg/dL (8.5-10.1); CARBON DIOXIDE,CO2 27.7 mmol/L (21.0-32.0); CREATININE 1.9 mg/dL (0.8-1.3); EST CRCL DRUG DOSING (CG) 40.18 mL/min; POTASSIUM,K 4.5 mmol/L (3.5-5.1)
[2023-03-05] MEDS: Losartan 50 MG Tab PO SCH (08:23)
[2023-03-05] MEDS: Clopidogrel 75 MG Tab PO SCH (08:24)
[2023-03-05] MEDS: Empagliflozin 10 MG Tab PO SCH (08:24)
[2023-03-05] MEDS: Metoprolol Tartrate 25 MG Tab PO SCH ×2 (08:24→21:47)
[2023-03-05] MEDS: Apixaban 5 MG Tab PO SCH ×2 (08:25→21:48)
[2023-03-05] MEDS: Oseltamivir 30 MG Cap PO SCH ×2 (08:46→21:48)
[2023-03-05] MEDS ORDERED: Benzocaine/Cetylpyridinium/Menthol Lozenge MUCMEM PRN (09:40)
[2023-03-05] MEDS: Lactated Ringers 1,000 ML IV SCH ×2 (09:56→21:51)
[2023-03-05] MEDS ORDERED: cefTRIAXone 1 GM in Sodium Chloride 0.9% 50 ML IV SCH (14:00)
[2023-03-05] MEDS ORDERED: metFORMIN 500 MG Tab PO SCH (17:30)
[2023-03-05] MEDS: Doxazosin 4 MG Tab PO SCH (21:48)
[2023-03-06 07:05] LABS: BASOPHILS ABSOLUTE AUTO 0.01 K/uL (0.00-0.20); BASOPHILS PERCENT AUTO 0.3 % (0.0-1.0); EOSINOPHILS ABSOLUTE AUTO 0.04 K/uL (0.00-0.45); EOSINOPHILS PERCENT AUTO 1.2 % (0.0-6.0); HEMATOCRIT 42.2 % (42.0-52.0); HEMOGLOBIN 13.3 g/dL (14.0-18.0); IMMATURE GRAN ABSOLUTE AUTO 0.02 K/uL (0.00-0.05); IMMATURE GRAN PERCENT AUTO 0.6 % (0.0-0.4); LYMPHOCYTES PERCENT AUTO 12.1 % (24.0-44.0); MEAN CORPUSCULAR HEMOGLOBIN 28.4 pg (28.0-32.0); MEAN CORPUSCULAR HGB CONC 31.5 g/dL (32.0-36.0); MEAN PLATELET VOLUME 9.5 fL (9.4-12.4); MONOCYTES ABSOLUTE AUTO 0.23 K/uL (0.00-0.80); MONOCYTES PERCENT AUTO 6.9 % (0.0-8.0); NEUTROPHILS ABSOLUTE AUTO 2.61 K/uL (1.80-7.70); NEUTROPHILS PERCENT AUTO 78.9 % (41.0-71.0); PLATELET COUNT,PLT 147 K/uL (150-400); RED BLOOD CELL COUNT 4.69 M/uL (4.52-5.90); WHITE BLOOD CELL COUNT,WBC 3.31 K/uL (3.9-11.3)
[2023-03-06] MEDS: Lactated Ringers 1,000 ML IV SCH (07:21)
[2023-03-06 07:36] LABS: A/G RATIO 0.8 (0.9-1.6); BILIRUBIN TOTAL 0.4 mg/dL (0.2-1.0); CALCIUM 8.5 mg/dL (8.5-10.1); CREATININE 1.6 mg/dL (0.8-1.3); EST CRCL DRUG DOSING (CG) 47.72 mL/min; POTASSIUM,K 4.6 mmol/L (3.5-5.1); PROTEIN TOTAL,TP 6.9 g/dL (6.4-8.2)
[2023-03-06] MEDS: Losartan 50 MG Tab PO SCH (09:58)
[2023-03-06] MEDS: Apixaban 5 MG Tab PO SCH (09:58)
[2023-03-06] MEDS: Empagliflozin 10 MG Tab PO SCH (09:59)
[2023-03-06] MEDS: Metoprolol Tartrate 25 MG Tab PO SCH (09:59)
[2023-03-06] MEDS: Clopidogrel 75 MG Tab PO SCH (09:59)
[2023-03-06] MEDS: Oseltamivir 30 MG Cap PO SCH (10:02)
[2023-03-06] MEDS: Acetaminophen 325 MG Tab PO PRN (10:25)
== END 2023-03-06 12:15 | disposition home or self-care (01) | DRG 113 ==
LOC: MW.ED 13:14 → MW.MS 16:44 → OBSVTOIN 03-05 10:39 → MW.MS 03-05 12:00
PROVIDERS: ADMIT Internal Medicine; ATTEND Internal Medicine
DX: J10.1 Influenza due to other identified influenza virus with other respiratory manifestations (principal); J96.01 Acute respiratory failure with hypoxia; N39.0 Urinary tract infection, site not specified; N17.9 Acute kidney failure, unspecified; I25.10 Atherosclerotic heart disease of native coronary artery without angina pectoris; I10 Essential (primary) hypertension; E78.00 Pure hypercholesterolemia, unspecified; E66.9 Obesity, unspecified; I48.91 Unspecified atrial fibrillation; Z96.649 Presence of unspecified artificial hip joint; E11.51 Type 2 diabetes mellitus with diabetic peripheral angiopathy without gangrene; I73.9 Peripheral vascular disease, unspecified; I24.89 Other forms of acute ischemic heart disease; Z95.5 Presence of coronary angioplasty implant and graft; Z79.01 Long term (current) use of anticoagulants; Z88.8 Allergy status to other drugs, medicaments and biological substances; Z79.84 Long term (current) use of oral hypoglycemic drugs; Z79.899 Other long term (current) drug therapy; Z79.02 Long term (current) use of antithrombotics/antiplatelets; Z95.820 Peripheral vascular angioplasty status with implants and grafts; Z86.718 Personal history of other venous thrombosis and embolism; Z68.31 Body mass index [BMI] 31.0-31.9, adult; Z98.890 Other specified postprocedural states
CPT/HCPCS: 0241U; 36415; 70450; 70450-26; 71045; 71045-26; 71046; 71046-26; 80053; 81001; 82947; 83605; 83690; 83735; 83880; 84443; 84484; 85025; 85610; 85730; 87040; 87086; 93005; 96361; 96365; 96366; 96367; 99285-25; A9270-GY; G0378; J0696; J3475; J3490; J7120; J7620-GY